=== PATIENT | female | born 1945 | race Caucasian/White ===

== ENCOUNTER → 2016-10-21 | Outpatient (CLI) | payer MEDICARE ==
[2016-08-26 20:41] VITALS: BP 99/61
[~2016-10-21] MED LIST: SULF1TAB24 PO
--- NOTE | 2016-10-21 10:41 | RAD ---
Lumbar spine, 3 views, 10/21/2016: History: Bilateral leg weakness The bony structures are demineralized. There is mild loss of height of the L1, L3 and L4 vertebral bodies of indeterminate age. There are mild scattered marginal spurs. The disc spaces are well preserved. There are moderate degenerative changes involving the facet joints in the lower lumbar spine. Aortoiliac calcific plaquing is present. IMPRESSION: 1. Demineralization. 2. Mild to moderate scattered degenerative changes. 3. Multiple mild lumbar vertebral compression fractures of indeterminate ages.
== END | disposition home or self-care (01) ==
LOC: DXRADRC 10:10
PROVIDERS: ATTEND Family Medicine
DX: M48.56XA Collapsed vertebra, not elsewhere classified, lumbar region, initial encounter for fracture (principal); M81.0 Age-related osteoporosis without current pathological fracture; R53.1 Weakness
CPT/HCPCS: 72100

== ENCOUNTER 2016-12-20 22:16 | Emergency (ER) | payer MEDICARE ==
[~2016-12-20] VITALS: Ht 157.5 cm; Wt 50.3 kg
--- NOTE | 2016-12-20 22:43 | PHYS DOC ---
Past History Past Medical History: COPD Additional Past Medical Histor: peripheral neuropathy Past Surgical History: Hysterectomy Smoking: Non-smoker Alcohol Use: None Drug Use: None Adult General Chief Complaint Chief Complaint: LOWER EXTREMITY SWELLING [facility] HPI This is a pleasant 71-year-old female who lives at home with her dog and works at [employer] local [employer] who presents with localized swelling to the right greater than left leg last week. Patient points over last several months she's been suffering from peripheral neuropathy she been placed on prednisone and gabapentin daily for her symptoms although they have not improved. Patient is noted lower extremity swelling on the right greater than left leg without trouble or pain with walking. She describes a progressive weakness in her lower extremities as the swelling has gotten worse. Although she claims not to be a smoker there is history documented that she is. Patient denies any changes in medications other than described above she denies any shortness of breath, chest pain, abdominal pain or other symptoms. Patient said that she is on the medications and gabapentin and prednisone secondary to increased numbness and tingling to her lower extremity's bilaterally. Denies any trauma, travel outside the country or recent illness. She also denies any fever, joint pain or swelling or rash. My differential diagnosis for peripheral edema included but not limited to the following. Renal sodium retention, nephrotic syndrome, idiopathic edema secondary to volume to patient, drug-induced edema concerning vasodilators, NSAIDs, venous insufficiency or thromboembolism, pitting edema from lymphatic obstruction or hypothyroidism, ascites associated with abdominal distention, central venous pressure increases secondary to cirrhosis, congestive heart failure, or pericardial heart disease. Review of Systems Review of Systems Constitutional: Denies fever or chills [] Eyes: Denies change in visual acuity, redness, or eye pain [] HENT: Denies nasal congestion or sore throat [] Respiratory: Denies cough or shortness of breath [] Cardiovascular: No additional information not addressed in HPI [] GI: Denies abdominal pain, nausea, vomiting, bloody stools or diarrhea [] : Denies dysuria or hematuria [] Musculoskeletal: Denies back pain or joint pain [] Integument: Denies rash or skin lesions [] Neurologic: Denies headache, she complains of global weakness Endocrine: Denies polyuria or polydipsia [] Current Medications Current Medications Current Medications Medications (Trade) Dose Ordered Sig/Harper Start Time Stop Time Status Last Admin Dose Admin Sodium Chloride (Normal Saline Flush) 10 ml QSHIFT PRN 12/20/16 22:45 UNV Allergies Allergies Allergies Uncoded Allergies Type Severity Reaction Last Updated Verified PENCILLIN Adverse Reaction Intermediate 08/26/16 Physical Exam Physical Exam Constitutional: This is a frail cachectic looking woman no acute distress quietly resting. She is nontoxic in appearance HENT: Normocephalic, atraumatic, bilateral external ears normal, dry mucous membranes Eyes: PERRLA, EOMI, conjunctiva normal, no discharge. [] Neck: Normal range of motion, no tenderness, supple, no stridor. [] Cardiovascular:Heart rate regular rhythm, no murmur [] Lungs & Thorax: Bilateral breath sounds clear to auscultation [] Abdomen: Bowel sounds normal, soft, no tenderness, no masses, no pulsatile masses. [] Skin: Warm dry and intact +2 peripheral pulses +2 capillary refill there is +3 pitting edema to the lower portion of the thigh. Extremities: No tenderness, no cyanosis, no clubbing, Neurologic: Alert and oriented X 3, normal motor function, decreased sensation to light touch over the lower extremity bilaterally. Psychologic: Affect normal, judgement normal, mood normal. [] Current Patient Data Vital Signs Vital Signs Date Time Temp Pulse Resp B/P (MAP) Pulse Ox O2 Delivery O2 Flow Rate FiO2 12/20/16 22:16 97.9 81 20 95 Room Air Vital Signs Date Time Temp Pulse Resp B/P (MAP) Pulse Ox O2 Delivery O2 Flow Rate FiO2 12/20/16 22:16 97.9 81 20 95 Room Air Lab Results Laboratory Tests Test 12/20/16 22:45 12/20/16 22:47 White Blood Count 8.1 x10^3/uL (4.0-11.0) Red Blood Count 4.57 x10^6/uL (3.50-5.40) Hemoglobin 12.7 g/dL (12.0-15.5) Hematocrit 38.4 % (36.0-47.0) Mean Corpuscular Volume 84 fL (79-100) Mean Corpuscular Hemoglobin 28 pg (25-35) Mean Corpuscular Hemoglobin Concent 33 g/dL (31-37) Red Cell Distribution Width 14.9 % (11.5-14.5) H Platelet Count 286 x10^3/uL (140-400) Neutrophils (%) (Auto) 87 % (31-73) H Lymphocytes (%) (Auto) 8 % (24-48) L Monocytes (%) (Auto) 4 % (0-9) Eosinophils (%) (Auto) 0 % (0-3) Basophils (%) (Auto) 1 % (0-3) Neutrophils # (Auto) 7.1 x10^3uL (1.8-7.7) Lymphocytes # (Auto) 0.6 x10^3/uL (1.0-4.8) L Monocytes # (Auto) 0.3 x10^3/uL (0.0-1.1) Eosinophils # (Auto) 0.0 x10^3/uL (0.0-0.7) Basophils # (Auto) 0.0 x10^3/uL (0.0-0.2) Sodium Level 141 mmol/L (136-145) Potassium Level 4.3 mmol/L (3.5-5.1) Chloride Level 104 mmol/L (98-107) Carbon Dioxide Level 32 mmol/L (21-32) Anion Gap 5 (6-14) L Blood Urea Nitrogen 21 mg/dL (7-20) H Creatinine 0.8 mg/dL (0.6-1.0) Estimated GFR (Cockcroft-Gault) 71.1 BUN/Creatinine Ratio 26 (6-20) H Glucose Level 198 mg/dL (70-99) H Calcium Level 8.3 mg/dL (8.5-10.1) L Total Bilirubin 0.4 mg/dL (0.2-1.0) Aspartate Amino Transferase (AST) 10 U/L (15-37) L Alanine Aminotransferase (ALT) 18 U/L (14-59) Alkaline Phosphatase 166 U/L (46-116) H Creatine Kinase 78 U/L (26-192) Creatine Kinase MB (Mass) 0.9 ng/mL (0.0-3.6) Creatine Kinase MB Relative Index 1.2 % (0-4) Troponin I Quantitative < 0.017 ng/mL (0-0.055) OU-Yds-L-Type Natriuretic Peptide 83 pg/mL (0-124) Total Protein 6.3 g/dL (6.4-8.2) L Albumin 3.3 g/dL (3.4-5.0) L Albumin/Globulin Ratio 1.1 (1.0-1.7) Urine Collection Type Unknown Urine Color Yellow Urine Clarity Hazy Urine pH 5.5 Urine Specific [place] 1.010 Urine Protein Neg (NEG-TRACE) Urine Glucose (UA) Neg mg/dL (NEG) Urine Ketones (Stick) Neg mg/dL (NEG) Urine Blood Trace (NEG) Urine Nitrite Pos (NEG) Urine Bilirubin Neg (NEG) Urine Urobilinogen Dipstick 1 mg/dL (0.2 mg/dL) Urine Leukocyte Esterase Mod (NEG) Urine RBC 0 /HPF (0-2) Urine WBC >40 /HPF (0-4) Urine Squamous Epithelial Cells Occ /LPF Urine Bacteria Many /HPF (0-FEW) EKG EKG EKG timed 10:37 PM 12/20/2016 demonstrates normal sinus rhythm with a heart rate of 70 PA interval of 138 QRS of 78 QTC of 361 there is a nonseptic T-wave flattening in V1 and otherwise normal looking EKG. Read by Dr. Tate left atrial enlargement via large P wave in lead 2 [] Radiology/Procedures Radiology/Procedures [] AP chest film timed 12/20/2016 at approximately 2258 demonstrates hyperinflated lungs flattened diaphragms without signs of infection pleural effusion or cardiomegaly. Read by Dr. Tate. Ultrasound report received by [email or web address] and reviewed by me demonstrates no DVT lower extremity ultrasound. Course & Med Decision Making Course & Med Decision Making Pertinent Labs and Imaging studies reviewed. (See chart for details) Patient tells me that their symptoms given during CC are unchanged I reviewed labs and radiology reports with patient and she will follow-up with her primary care doctor next 24-40 hours. At this point there is no evidence of congestive heart failure, cardiac ischemia, kidney failure, pulmonary edema, vascular congestion in the lower extremities consistent with DVT. Patient will follow up with her primary care doctor in the next several days \ impression: Peripheral edema of unclear etiology, UTI Disposition: PCP follow-up 24-48 hours repeat evaluation [] Dragon Disclaimer Dragon Disclaimer This chart was dictated in whole or in part using Voice Recognition software in a busy, high-work load, and often noisy Emergency Department environment. It may contain unintended and wholly unrecognized errors or omissions. Departure Departure: Impression: Primary Impression: Peripheral edema Additional Impression: UTI (urinary tract infection) Disposition: 01 HOME, SELF-CARE Condition: IMPROVED Referrals: ALE GAUTAM MD (PCP) Patient Instructions: Peripheral Edema, Urinary Tract Infection Additional Instructions: Please follow-up with your primary care doctor for repeat evaluation in the next 24-48 hours. Please return for any new or increasing symptoms, shortness of breath, chest pain, redness or swelling in-year-old excess new. Scripts Phenazopyridine Hcl (PYRIDIUM) 200 Mg Tablet 200 MG PO TID for 5 Days, #15 TAB Prov: JUAQUIN TATE MD 12/20/16 Sulfamethoxazole/Trimethoprim (BACTRIM DS TABLET) 1 Each Tablet 1 TAB PO BID, #20 TAB Prov: JUAQUIN TATE MD 12/20/16 Problem Qualifiers JUAQUIN TATE MD Dec 20, 2016 22:43
[2016-12-20] MEDS ORDERED: 0.9 % SODIUM CHLORIDE 10 ML DISP.SYRIN. IV PRN (23:00)
[2016-12-20] MEDS ORDERED: PRED20TA PO (23:02)
[2016-12-20] MEDS ORDERED: GABA-586 PO (23:02)
[2016-12-20 23:08] LABS: BASO % 1 % (0-3); EOS % 0 % (0-3); HEMATOCRIT 38.4 % (36.0-47.0); HEMOGLOBIN 12.7 g/dL (12.0-15.5); LYMPH # 0.6 x10^3/uL (1.0-4.8); LYMPH % 8 % (24-48); MEAN CORPUSCULAR HEMOGLOBIN 28 pg (25-35); MEAN CORPUSCULAR HGB CONC 33 g/dL (31-37); MEAN CORPUSCULAR VOLUME 84 fL (79-100); MONO # 0.3 x10^3/uL (0.0-1.1); MONO % 4 % (0-9); NEUT # 7.1 x10^3uL (1.8-7.7); NEUT % 87 % (31-73); PLATELET COUNT 286 x10^3/uL (140-400); RED BLOOD COUNT 4.57 x10^6/uL (3.50-5.40); RED CELL DISTRIBUTION WIDTH 14.9 % (11.5-14.5); WHITE BLOOD COUNT 8.1 x10^3/uL (4.0-11.0)
[2016-12-20 23:18] LABS: BILIRUBIN,URINE NEG (NEG); CLARITY,URINE HAZY; COLOR,URINE YELLOW; GLUCOSE,URINE NEG (NEG); NITRITE,URINE POS (NEG); RBC,URINE 0 /HPF (0-2); UROBILINOGEN,URINE 1 mg/dL (0.2 mg/dL); WBC,URINE >40 /HPF (0-4)
[2016-12-20 23:19] LABS: BACTERIA,URINE MANY /HPF (0-FEW); SQUAMOUS EPITHELIAL CELL,UR OCC /LPF
[2016-12-20 23:29] LABS: ALBUMIN 3.3 g/dL (3.4-5.0); ALBUMIN/GLOBULIN RATIO 1.1 (1.0-1.7); CALCIUM 8.3 mg/dL (8.5-10.1); CREATININE 0.8 mg/dL (0.6-1.0); GFR 71.1; POTASSIUM 4.3 mmol/L (3.5-5.1); TOTAL BILIRUBIN 0.4 mg/dL (0.2-1.0); TOTAL PROTEIN 6.3 g/dL (6.4-8.2)
[2016-12-20] MEDS ORDERED: SULF1TAB24 PO (23:55)
[2016-12-20] MEDS ORDERED: PHEN-318 PO (23:55)
--- NOTE | 2016-12-21 00:10 | RAD ---
Right lower extremity venous Doppler: Reason for examination: Right leg edema. The right lower extremity venous system was evaluated from the right common femoral and greater saphenous veins distally to the calf veins with grayscale imaging, color-flow imaging and spectral analysis. There appears be normal blood flow. No deep venous thrombosis present. There is normal response to the venous system to compression and augmentation. There is soft tissue edema present. IMPRESSION: No deep venous thrombosis in the right lower extremity. Soft tissue edema is present. Electronically signed by: Bridgette Rashid MD (12/21/2016 12:07 AM)
[2016-12-21 01:00] VITALS: BP 130/60
--- NOTE | 2016-12-21 04:02 | EKG ---
[address] [address] Test Date: 2016-12-20 Test Time: 22:37:19 Pat Name: JOÃO RODRIGUEZ Department: Room: Gender: F Flare Maker: LENORA : 1945 Requested By: JUAQUIN TATE Order Number: [id number] Reading MD: Daron Noonan Measurements Intervals [place] Rate: 70 P: 61 [place]: 138 QRS: -24 QRSD: 78 T: 48 QT: 332 QTc: 361 Interpretive Statements SINUS RHYTHM LEFT ATRIAL ABNORMALITY LEFTWARD AXIS NON SPECIFIC T ABNORMALITY RI6.01 Unconfirmed report No previous ECG available for comparison Electronically Signed On 12-21-2016 9:58:11 CDT by Daron Noonan
--- NOTE | 2016-12-21 08:45 | RAD ---
Portable chest, 12/20/2016: History: Peripheral edema Comparison is made to a study from 08/26/2016. The heart size and pulmonary vascularity are within normal limits. There is calcific plaquing and mild tortuosity of the thoracic aorta. There is minimal parenchymal scarring. No acute infiltrate is seen. There is no evidence of pleural fluid. The bony structures are demineralized. There is a healing fracture of the proximal right humerus. IMPRESSION: No acute cardiopulmonary abnormality is detected.
== END 2016-12-21 01:23 | disposition home or self-care (01) ==
LOC: ER 22:16
DX: R60.0 Localized edema (principal); N39.0 Urinary tract infection, site not specified; J44.9 Chronic obstructive pulmonary disease, unspecified; G62.9 Polyneuropathy, unspecified; Z88.0 Allergy status to penicillin
CPT/HCPCS: 36415; 71010; 80053; 81001; 82553; 83880; 84443; 84484; 85027; 87086; 87186; 93005; 93971; 99285-25

== ENCOUNTER 2017-07-10 19:33 | Emergency (ER) | payer MEDICARE ==
[~2017-07-10] VITALS: Ht 157.5 cm; Wt 44.2 kg
[~2017-07-10 19:33] MED LIST changes: +GABA-586 PO; +PHEN-318 PO; +PRED20TA PO
[2017-07-10] MEDS ORDERED: MVI, ADULT NO.4 WITH VIT K 10 ML, FOLIC ACID SYRINGE for ER 1 MG, THIAMINE 100 MG in IV... IV SCH ×4 (20:00)
[2017-07-10] MEDS ORDERED: MVI, ADULT NO.4 WITH VIT K 10 ML VIAL IV ONE (20:25)
[2017-07-10] MEDS ORDERED: FOLIC ACID 5 MG/ML SYRINGE for ER IV ONE (20:25)
[2017-07-10] MEDS ORDERED: THIAMINE 200 MG/2 ML VIAL. IV ONE (20:25)
[2017-07-10 20:31] LABS: BASO # 0.1 x10^3/uL (0.0-0.2); BASO % 0 % (0-3); EOS % 0 % (0-3); HEMATOCRIT 30.8 % (36.0-47.0); HEMOGLOBIN 9.8 g/dL (12.0-15.5); LYMPH # 0.7 x10^3/uL (1.0-4.8); LYMPH % 2 % (24-48); MEAN CORPUSCULAR HEMOGLOBIN 24 pg (25-35); MEAN CORPUSCULAR HGB CONC 32 g/dL (31-37); MEAN CORPUSCULAR VOLUME 75 fL (79-100); MONO # 1.2 x10^3/uL (0.0-1.1); MONO % 4 % (0-9); NEUT # 25.9 x10^3uL (1.8-7.7); NEUT % 93 % (31-73); PLATELET COUNT 640 x10^3/uL (140-400); RED BLOOD COUNT 4.13 x10^6/uL (3.50-5.40); WHITE BLOOD COUNT 27.9 x10^3/uL (4.0-11.0)
[2017-07-10 20:42] LABS: ALBUMIN 2.4 g/dL (3.4-5.0); ALBUMIN/GLOBULIN RATIO 0.5 (1.0-1.7); CREATININE 0.8 mg/dL (0.6-1.0); GFR 71.1; TOTAL BILIRUBIN 0.5 mg/dL (0.2-1.0); TOTAL PROTEIN 6.9 g/dL (6.4-8.2)
[2017-07-10 20:43] LABS: POTASSIUM 1.9 mmol/L (3.5-5.1)
[2017-07-10 21:05] LABS: % BANDS 12 % (0-9); % LYMPHS 7 % (24-48); % MONOS 3 % (0-10); % SEGS 78 % (35-66)
[2017-07-10 21:06] LABS: HYPOCHROMIA SLIGHT; MICROCYTOSIS SLIGHT; PLATELET CLUMP PRESENT; PLT ESTIMATE INCREASED (ADEQUATE); POLYCHROMASIA SLIGHT
[2017-07-10 21:14] LABS: BACTERIA,URINE MANY /HPF (0-FEW); BILIRUBIN,URINE NEG (NEG); CLARITY,URINE CLOUDY; COLOR,URINE YELLOW; GLUCOSE,URINE NEG (NEG); NITRITE,URINE NEG (NEG); SQUAMOUS EPITHELIAL CELL,UR FEW /LPF; UROBILINOGEN,URINE 0.2 mg/dL (0.2 mg/dL); WBC,URINE >40 /HPF (0-4)
[2017-07-10] MEDS ORDERED: methylPREDNISolone SOD SUCC PF 125 MG/2 ML VIAL. IV ONE (21:15)
[2017-07-10] MEDS ORDERED: HEPARIN 25,000UTS/500ML PREMIX 500 ML IV PRN (21:15)
[2017-07-10] MEDS ORDERED: IPRATRPIUM/ALBUTEROL 0.5/2.5MG 3 ML NEBU. NEB ONE (21:15)
[2017-07-10] MEDS ORDERED: POTASSIUM CHLORIDE 20 MEQ/15 ML ORAL LIQUID. PO ONE (21:15)
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
[2017-07-10 21:20] LABS: AMPHETAMINE/METHAMPHETAMINE NEG (NEG); BARBITURATES NEG (NEG); BENZODIAZEPINES NEG (NEG); CANNABINOIDS NEG (NEG); COCAINE NEG (NEG); METHADONE NEG (NEG); OPIATES NEG (NEG); PHENCYCLIDINE NEG (NEG)
[2017-07-10] MEDS ORDERED: HEPARIN for IV BOLUS 10,000 UNIT/10 ML VIAL. IV ONE (21:30)
[2017-07-10 23:00] VITALS: BP 127/85
[2017-07-10] MEDS ORDERED: ANTI-COAG MONITOR BY PHARMACY. MC PRN (23:45)
--- NOTE | 2017-07-11 07:40 | EKG ---
[address] [address] Test Date: 2017-07-10 Test Time: 19:49:39 Pat Name: JOÃO RODRIGUEZ Department: Room: Gender: F Food And Beverage Attendant: PARAM : 1945 Requested By: LUCERO GAINES Order Number: [id number] Reading MD: Bubba Arita Measurements Intervals [place] Rate: 93 P: 59 [place]: 152 QRS: -63 QRSD: 80 T: 44 QT: 380 QTc: 475 Interpretive Statements SINUS RHYTHM ATRIAL PREMATURE COMPLEX(ES) ABNORMAL LEFT AXIS DEVIATION LOW LIMB LEAD VOLTAGE QRS(T) CONTOUR ABNORMALITY CONSIDER ANTEROSEPTAL INFARCT Electronically Signed On 07-21-2017 9:05:50 REHABILITATION SUPERVISOR by Bubba Arita
--- NOTE | 2017-07-11 08:35 | RAD ---
Portable chest, 07/10/2017: History: Hypoxia, low oxygen saturation Comparison is made to a study from 12/20/2016. The patient is rotated to the right. The heart size is normal. There is calcific plaquing and tortuosity of the thoracic aorta. There is minimal parenchymal scarring. No acute pulmonary infiltrate is seen. There is no evidence of pleural fluid. The bony structures are demineralized. IMPRESSION: No acute cardiopulmonary abnormality is detected.
== END 2017-07-10 23:02 | disposition short-term general hospital (02) ==
LOC: EEVIPCON 19:33 → ER 22:23
DX: I21.4 Non-ST elevation (NSTEMI) myocardial infarction (principal); N39.0 Urinary tract infection, site not specified; L89.153 Pressure ulcer of sacral region, stage 3; D53.9 Nutritional anemia, unspecified; E44.0 Moderate protein-calorie malnutrition; E87.6 Hypokalemia; J44.9 Chronic obstructive pulmonary disease, unspecified; Z68.1 Body mass index [BMI] 19.9 or less, adult; Z91.419 Personal history of unspecified adult abuse; Z87.891 Personal history of nicotine dependence; Z88.0 Allergy status to penicillin
CPT/HCPCS: 36415; 71010; 80053; 80307; 81001; 82550; 83735; 83880; 84484; 85007; 85025; 85379; 87086; 87186; 93005; 94640; 96365; 96367; 96368; 96375; 99285; G0480; J1644; J1956; J2930; J7620; P9612; G0479; J7030

== ENCOUNTER 2018-12-21 15:46 | Emergency (ER) | payer MEDICARE ==
[2018-12-21] MEDS ORDERED: IV NORMAL SALINE 1,000ML 1,000 ML IV SCH (15:50)
--- NOTE | 2018-12-21 15:56 | PHYS DOC ---
Past History Past Medical History: COPD, Other Additional Past Medical Histor: peripheral neuropathy Past Surgical History: Hysterectomy Smoking: Non-smoker Alcohol Use: None Drug Use: None Adult General Chief Complaint Chief Complaint: WEAKNESS/GENERALIZED HPI HPI Patient is a 73-year-old female presents with generalized weakness that has been present for the past week. She has had nausea, vomiting, and diarrhea during this time. Denies any cough or shortness of breath. Denies any recent weight changes prior to this week. Nothing seems to make this better, eating or drinking seems to make it worse. No black tarry stools, no coffee ground emesis, no blood in the stool or emesis. Symptoms are moderate in intensity. Weakness is worse with any kind of exertion. She denies any chest pains or palpitations.[] Review of Systems Review of Systems Constitutional: Denies fever or chills [] Eyes: Denies change in visual acuity, redness, or eye pain [] HENT: Denies nasal congestion or sore throat [] Respiratory: Denies cough or shortness of breath [] Cardiovascular: No additional information not addressed in HPI [] GI: See history of present illness[] : Denies dysuria or hematuria [] Musculoskeletal: Denies back pain or joint pain [] Integument: Denies rash or skin lesions [] Neurologic: Denies headache, focal weakness or sensory changes [] Endocrine: Denies polyuria or polydipsia [] All other systems were reviewed and found to be within normal limits, except as documented in this note. Current Medications Current Medications Current Medications Medications (Trade) Dose Ordered Sig/Harper Start Time Stop Time Status Last Admin Dose Admin Albuterol/ Ipratropium (Duoneb) 3 ml 1X ONCE 12/21/18 16:00 12/21/18 16:01 UNV Sodium Chloride 1,000 ml @ 1,000 mls/hr Q1H 12/21/18 15:50 12/21/18 16:49 UNV Allergies Allergies Allergies Coded Allergies Type Severity Reaction Last Updated Verified Penicillins Allergy Intermediate 07/10/17 Yes Physical Exam Physical Exam Constitutional: Well developed, cachectic, no acute distress, non-toxic appearance. [] HENT: Normocephalic, atraumatic, bilateral external ears normal, oropharynx moist, no oral exudates, nose normal. [] Eyes: PERRLA, EOMI, conjunctiva normal, no discharge. [] Neck: Normal range of motion, no tenderness, supple, no stridor. [] Cardiovascular:Heart rate tachycardic with a regular rhythm, no murmur [] Lungs & Thorax: Breath sounds decreased in bilateral lower lobes[] Abdomen: Bowel sounds normal, soft, no tenderness, no masses, no pulsatile masses. [] Skin: Warm, dry, no erythema, no rash. [] Back: No tenderness, no CVA tenderness. [] Extremities: No tenderness, no cyanosis, no clubbing, ROM intact, no edema. [] Neurologic: Alert and oriented X 3, normal motor function, normal sensory function, no focal deficits noted. [] Psychologic: Affect normal, judgement normal, mood normal. [] EKG EKG EKG shows a sinus tachycardia at 108 bpm, axis is -59, abnormal left axis, normal QTC at 392 ms, no ST elevations. No acute changes when compared with EKG of 07/10/2017 other than heart rate. Interpreted by me at 1618.[] Radiology/Procedures Radiology/Procedures PORTABLE CHEST 1V History: Weakness. Hypoxia.. Comparison with 07/10/2017. Heart size is stable and not enlarged. Mild aortic calcification. Infiltrate has developed in both lung bases, right greater the left with airspace and interstitial component. Milder infiltrate in both lungs. No large effusion. No evidence of pneumothorax. Air trapping compatible with emphysema. IMPRESSION: Development of mixed infiltrates in both lungs, concerning for pneumonia. Recommend follow-up to resolution. [] Course & Med Decision Making Course & Med Decision Making Pertinent Labs and Imaging studies reviewed. (See chart for details) ED course: Patient arrived, was placed in bed, and tolerated exam well. She was noted to be hypoxic and so was started on supplemental oxygen along with being given a breathing treatment which didn't improve her oxygen saturation. She was given IV fluids for the tachycardia, and antibiotics for the presumed pneumonia. There was concern for the possibility of a PE so a CT angiogram was ordered but couldn't ultimately canceled due to her new renal impairment. Consultation was made initially with the hospitalist at [facility] who felt that the patient would benefit from a higher level of care given that we have no renal specialist, hiv prevention specialist, nor hematology staff here. Consultation then was made with the hospitalist at [facility], Dr. ENRIQUEZ, who graciously accepted the patient in transfer. Findings were discussed with the patient who voiced understanding. All questions were answered. She was transferred in improved condition Medical decision making: Patient with a leukocytosis as well as thrombocytosis, which appears to be old be given review of lab tests from the summer. Patient appears to be in acute renal failure possibly triggering the hyperkale geoff. She is noted to be hyponatremic. She is being given IV fluids to address these issues. As noted above she was given IV antibiotics for the presumed pneumonia. VQ scan for possibility of PE can be performed at the receiving facility and should not be a barrier to transfer. She is being be transferred to an ICU bed. Concern was also present for sepsis especially in light of her elevated lactate level and elevated white cell count. She is being covered for this with IV fluids as well as antibiotics for a possible source, the lungs.[] Dragon Disclaimer Dragon Disclaimer This electronic medical record was generated, in whole or in part, using a voice recognition dictation system. Departure Departure: Impression: Primary Impression: Pneumonia Additional Impressions: Acute renal failure Hyperkalemia Hyponatremia Thrombocytosis Disposition: 05 TRANSFER OTHER Condition: IMPROVED Referrals: ALE GAUTAM MD (PCP) Sepsis Assessment Date and Time of Assessment Date: Dec 21, 2018 Time: 17:00 Vital Signs Vital Signs Vital Signs Date Time Temp Pulse Resp B/P (MAP) Pulse Ox O2 Delivery O2 Flow Rate FiO2 12/21/18 17:41 103 30 115/61 (79) 98 12/21/18 16:52 96.4 Room Air 12/21/18 16:35 15.0 Respirations Respiratory Effort: Non-Labored Respiratory Pattern: Tachypnea Cardiovascular Pulse Rhythm: Regular HEART: No gallops noted, No JVD Lung Sounds Breath Sounds: Diminished (at bases) Capillary Refill Capillary Refill: Lt Foot < 3 seconds Peripheral Pulse Pulse Location: Radial Pulse Strength: Weak (1+) Pulse Assessment Method: Monitor Integumentary Skin: Warm Skin Moisture: Dry Skin Turgor: Decreased Skin Color: warm Fingernail Color: WNL Problem Qualifiers Primary Impression: Pneumonia Pneumonia type: due to unspecified organism Laterality: bilateral Lung location: lower lobe of lung Qualified Codes: J18.1 - Lobar pneumonia, unspecified organism Additional Impressions: Acute renal failure Acute renal failure type: unspecified Qualified Codes: N17.9 - Acute kidney failure, unspecified PRAFUL STEIN DO Dec 21, 2018 15:56
[2018-12-21 16:15] LABS: BASO % 0 % (0-3); EOS % 0 % (0-3); HEMATOCRIT 33.2 % (36.0-47.0); HEMOGLOBIN 10.1 g/dL (12.0-15.5); LYMPH # 0.8 x10^3/uL (1.0-4.8); LYMPH % 3 % (24-48); MEAN CORPUSCULAR HEMOGLOBIN 25 pg (25-35); MEAN CORPUSCULAR HGB CONC 31 g/dL (31-37); MEAN CORPUSCULAR VOLUME 82 fL (79-100); MONO # 0.9 x10^3/uL (0.0-1.1); MONO % 3 % (0-9); NEUT # 25.1 x10^3uL (1.8-7.7); NEUT % 94 % (31-73); RED BLOOD COUNT 4.06 x10^6/uL (3.50-5.40); RED CELL DISTRIBUTION WIDTH 15.6 % (11.5-14.5)
[2018-12-21] MEDS ORDERED: IPRATRPIUM/ALBUTEROL 0.5/2.5MG 3 ML NEBU. NEB ONE (16:15)
--- NOTE | 2018-12-21 16:18 | EKG ---
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
--- NOTE | 2018-12-21 16:22 | RAD ---
PORTABLE CHEST 1V History: Weakness. Hypoxia.. Comparison with 07/10/2017. Heart size is stable and not enlarged. Mild aortic calcification. Infiltrate has developed in both lung bases, right greater the left with airspace and interstitial component. Milder infiltrate in both lungs. No large effusion. No evidence of pneumothorax. Air trapping compatible with emphysema. IMPRESSION: Development of mixed infiltrates in both lungs, concerning for pneumonia. Recommend follow-up to resolution. Electronically signed by: Nawaf Ennis MD (12/21/2018 4:19 PM) [facility]
[2018-12-21 16:31] LABS: ALBUMIN 2.2 g/dL (3.4-5.0); ALBUMIN/GLOBULIN RATIO 0.4 (1.0-1.7); CALCIUM 9.6 mg/dL (8.5-10.1); CREATININE 2.4 mg/dL (0.6-1.0); GFR 19.9; MAGNESIUM 1.9 mg/dL (1.8-2.4); POTASSIUM 5.4 mmol/L (3.5-5.1); TOTAL BILIRUBIN 0.2 mg/dL (0.2-1.0); TOTAL PROTEIN 7.5 g/dL (6.4-8.2)
[2018-12-21 16:43] LABS: PLATELET COUNT 1145 x10^3/uL (140-400)
[2018-12-21 16:50] LABS: % BANDS 7 % (0-9); % LYMPHS 8 % (24-48); % MONOS 4 % (0-10); % SEGS 81 % (35-66)
[2018-12-21 16:52] LABS: PLATELET CLUMP PRESENT; PLT ESTIMATE INCREASED (ADEQUATE); TOXIC GRANULATION PRESENT; TOXIC VACUOLATION PRESENT
[2018-12-21 16:53] LABS: ANISOCYTOSIS SLIGHT; HYPOCHROMIA SLIGHT
[2018-12-21] MEDS ORDERED: IV NORMAL SALINE 1,000ML 1,000 ML IV ONE (18:00)
[2018-12-21 18:20] VITALS: BP 103/43
[2018-12-25 13:40] LABS: WHITE BLOOD COUNT 26.8 x10^3/uL (4.0-11.0)
== END 2018-12-21 19:08 | disposition short-term general hospital (02) ==
LOC: ER 15:46
DX: N17.9 Acute kidney failure, unspecified (principal); E87.5 Hyperkalemia; E87.1 Hypo-osmolality and hyponatremia; J18.1 Lobar pneumonia, unspecified organism; D47.3 Essential (hemorrhagic) thrombocythemia; J44.9 Chronic obstructive pulmonary disease, unspecified; Z90.710 Acquired absence of both cervix and uterus; Z88.0 Allergy status to penicillin
CPT/HCPCS: 36415; 71045; 80053; 83605; 83690; 83735; 83880; 84484; 85007; 85025; 85379; 85610; 87040; 87205; 93005; 94640; 96365; 96366; 99285; J1956; J7620; J7030

== ENCOUNTER 2019-04-08 14:08 | Inpatient (IN) | payer MEDICARE ==
[~2019-04-08] VITALS: Ht 157.5 cm; Wt 42.2 kg
[2019-04-08] MEDS ORDERED: SULF1TAB23 PO (14:36)
--- NOTE | 2019-04-08 14:37 | PHYS DOC ---
Past History Past Medical History: Anxiety, Hypertension Additional Past Medical Histor: peripheral neuropathy Past Surgical History: Other Smoking: Non-smoker Alcohol Use: None Drug Use: None Adult General Chief Complaint Chief Complaint: PAIN ON URINATION HPI HPI Patient is a 73-year-old female presents to the emergency department for evaluation. She states that for the past week, she has had urinary frequency, hesitancy, and dysuria. She has not had any other acute symptoms, she has not had any malaise, fevers, dizziness, or lightheadedness. She does not feel ill otherwise. She was hospitalized a month ago at [facility] and diagnosed with pneumonia and has had a persistent cough but denies any shortness of breath. There are no alleviating or exacerbating factors to her symptoms otherwise. She does not think she has pneumonia, and declines my offer for a chest x-ray to further assess her pulmonary status. Patient's urine specimen appears grossly purulent. Review of Systems Review of Systems Constitutional: Denies fever or chills [] Eyes: Denies change in visual acuity, redness, or eye pain [] HENT: Denies nasal congestion or sore throat [] Respiratory: Denies pleuritic pain or shortness of breath [] Cardiovascular: The patient denies any shortness of breath, chest pain, palpitations, or orthopnea[] GI: Denies abdominal pain, nausea, vomiting, bloody stools or diarrhea [] : Denies flank pain or hematuria [] Musculoskeletal: Denies back pain or joint pain [] Integument: Denies rash or skin lesions [] Neurologic: Denies headache, focal weakness or sensory changes [] Endocrine: Denies polyuria or polydipsia [] All other systems were reviewed and found to be within normal limits, except as documented in this note. Allergies Allergies Allergies Coded Allergies Type Severity Reaction Last Updated Verified Penicillins Allergy Intermediate 07/10/17 Yes Physical Exam Physical Exam PHYSICAL EXAM: CONSTITUTIONAL: Well developed, well nourished HEAD: normocephalic, atraumatic EENT: PERRL, EOMI. Conjunctivae normal color, sclerae non-icteric; moist mucous membranes. NECK: Supple, non-tender; no meningismus. LUNGS: Globally diminished breath sounds, without any rales, wheezes, or rhonchi , breathing even and unlabored. HEART: Regular rate and rhythm, no murmur CHEST: No deformity; non-tender ABDOMEN: The abdomen is soft, and non-tender, no masses or bruits. EXTREM: Normal ROM; no deformity, no calf tenderness. Normal pulses palpable in all extremities. There is no pedal edema. SKIN: No rash; no diaphoresis NEURO: Alert; normal speech and cognition; CN's grossly intact; strength grossly intact without focal deficit. BACK: No CVA TTP. EKG EKG Normal sinus rhythm a rate of 105 bpm, occasional APCs, normal axis, normal intervals, there are nonspecific ST/T changes, without acute changes noted.[] Radiology/Procedures Radiology/Procedures PROCEDURE: CHEST PA & LATERAL CHEST PA LATERAL History: Cough Comparison: 12/21/2018 and 4 chest x-ray exam. Findings: The cardiomediastinal silhouette is normal. Pulmonary vasculature is normal. The lungs are clear. No pleural effusion or pneumothorax is seen. Nodular density involving the lateral left midlung measuring 0.5 cm diameter is new since the prior exam. Emphysematous involvement of the lung mary noted. There is no acute bone abnormality. Osteopenia noted. Compression deformity of mid thoracic spine and of L1 noted. IMPRESSION: Resolution of previously seen infiltrates at the lung bases. A small new nodule at the lateral left mid thoracic levels suggested in the interval. Interval follow-up chest x-ray examination in 12-16 weeks recommended to assess stability. [] Course & Med Decision Making Course & Med Decision Making Pertinent Lab studies reviewed. (See chart for details) []4:30 PM: The patient's condition remains stable. Her white count and platelet count have trended up since her hospitalization at [place] (which was in December, not February as the patient initially stated). She is agreeable to have a chest x-ray taken at this time, and given her lab abnormalities I do think it is appropriate to have her admitted to the hospital at least for further observation and treatment. Her heart rate has improved to the 80s. The hospitalist had agreed to admit the patient for further treatment. 5:35 PM: I discussed chest x-ray findings with the patient and the need for further outpatient follow-up. Dragon Disclaimer Dragon Disclaimer This electronic medical record was generated, in whole or in part, using a voice recognition dictation system. Departure Departure: Impression: Primary Impression: Urinary tract infection Additional Impression: Sepsis Disposition: ADMITTED INPATIENT Admitting Physician: Lamar Hernandez Condition: STABLE Referrals: ALE GAUTAM MD (PCP) Scripts Sulfamethoxazole/Trimethoprim (BACTRIM 400-80 MG TABLET) 1 Each Tablet 1 TAB PO BID for -, #14 TAB Prov: TRUDY GILLIS MD 04/08/19 Problem Qualifiers TRUDY GILLIS MD Apr 08, 2019 14:36
[2019-04-08] MEDS ORDERED: cefTRIAXone IM 1 GM VIAL IM ONE (14:45)
[2019-04-08] MEDS ORDERED: IV NORMAL SALINE 1,000ML 1,000 ML IV ONE ×2 (14:45→19:30)
[2019-04-08] MEDS ORDERED: IV NORMAL SALINE 50ML 50 ML ONE (14:58)
[2019-04-08] MEDS ORDERED: cefTRIAXone SODIUM 1 GM VIAL ONE (14:58)
[2019-04-08 15:19] LABS: BASO # 0.1 x10^3/uL (0.0-0.2); BASO % 1 % (0-3); EOS # 0.1 x10^3/uL (0.0-0.7); EOS % 0 % (0-3); HEMATOCRIT 38.2 % (36.0-47.0); HEMOGLOBIN 12.1 g/dL (12.0-15.5); LYMPH # 2.2 x10^3/uL (1.0-4.8); LYMPH % 16 % (24-48); MEAN CORPUSCULAR HEMOGLOBIN 25 pg (25-35); MEAN CORPUSCULAR HGB CONC 32 g/dL (31-37); MEAN CORPUSCULAR VOLUME 80 fL (79-100); MONO # 0.6 x10^3/uL (0.0-1.1); MONO % 5 % (0-9); NEUT # 10.8 x10^3uL (1.8-7.7); NEUT % 78 % (31-73); PLATELET COUNT 787 x10^3/uL (140-400); RED CELL DISTRIBUTION WIDTH 16.5 % (11.5-14.5); WHITE BLOOD COUNT 13.9 x10^3/uL (4.0-11.0)
[2019-04-08 15:29] LABS: ALBUMIN 2.5 g/dL (3.4-5.0); ALBUMIN/GLOBULIN RATIO 0.4 (1.0-1.7); CALCIUM 8.8 mg/dL (8.5-10.1); CREATININE 1.5 mg/dL (0.6-1.0); GFR 34.2; POTASSIUM 5.1 mmol/L (3.5-5.1); TOTAL BILIRUBIN 0.1 mg/dL (0.2-1.0); TOTAL PROTEIN 8.1 g/dL (6.4-8.2)
--- NOTE | 2019-04-08 16:05 | EKG ---
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
[2019-04-08 16:24] LABS: COLOR,URINE YELLOW
[2019-04-08 16:25] LABS: BACTERIA,URINE MANY /HPF (0-FEW); BILIRUBIN,URINE NEG (NEG); CLARITY,URINE TURBID; GLUCOSE,URINE NEG (NEG); NITRITE,URINE NEG (NEG); UROBILINOGEN,URINE 0.2 mg/dL (0.2 mg/dL); WBC,URINE >40 /HPF (0-4)
--- NOTE | 2019-04-08 17:09 | RAD ---
CHEST PA LATERAL History: Cough Comparison: 12/21/2018 and 4 chest x-ray exam. Findings: The cardiomediastinal silhouette is normal. Pulmonary vasculature is normal. The lungs are clear. No pleural effusion or pneumothorax is seen. Nodular density involving the lateral left midlung measuring 0.5 cm diameter is new since the prior exam. Emphysematous involvement of the lung mary noted. There is no acute bone abnormality. Osteopenia noted. Compression deformity of mid thoracic spine and of L1 noted. IMPRESSION: Resolution of previously seen infiltrates at the lung bases. A small new nodule at the lateral left mid thoracic levels suggested in the interval. Interval follow-up chest x-ray examination in 12-16 weeks recommended to assess stability. Electronically signed by: Austin Chester MD (04/08/2019 5:06 PM) [facility]
[2019-04-09 09:34] VITALS: BP 84/53
[2019-04-09] MEDS ORDERED: FLU VAX QS 2019-20 (36MOS+)/PF 0.5 ML SYRINGE. VAX IM ONE (11:45)
[2019-04-09] MEDS ORDERED: ALBUTEROL SULFATE 2.5 MG/3 ML NEBU. NEB SCH (12:00)
[2019-04-09] MEDS: IV NORMAL SALINE 1,000ML 1,000 ML IV SCH ×2 (12:00→21:52)
[2019-04-09 12:19] LABS: BASO # 0.1 x10^3/uL (0.0-0.2); BASO % 1 % (0-3); EOS # 0.1 x10^3/uL (0.0-0.7); EOS % 1 % (0-3); HEMATOCRIT 31.5 % (36.0-47.0); HEMOGLOBIN 9.8 g/dL (12.0-15.5); LYMPH % 25 % (24-48); MEAN CORPUSCULAR HEMOGLOBIN 25 pg (25-35); MEAN CORPUSCULAR HGB CONC 31 g/dL (31-37); MEAN CORPUSCULAR VOLUME 79 fL (79-100); MONO # 0.7 x10^3/uL (0.0-1.1); MONO % 6 % (0-9); NEUT # 7.9 x10^3uL (1.8-7.7); NEUT % 67 % (31-73); PLATELET COUNT 631 x10^3/uL (140-400); RED CELL DISTRIBUTION WIDTH 16.3 % (11.5-14.5); WHITE BLOOD COUNT 11.8 x10^3/uL (4.0-11.0)
[2019-04-09 12:29] LABS: ALBUMIN 2.1 g/dL (3.4-5.0); ALBUMIN/GLOBULIN RATIO 0.5 (1.0-1.7); CALCIUM 8.2 mg/dL (8.5-10.1); CREATININE 1.1 mg/dL (0.6-1.0); POTASSIUM 4.4 mmol/L (3.5-5.1); TOTAL BILIRUBIN 0.1 mg/dL (0.2-1.0); TOTAL PROTEIN 6.6 g/dL (6.4-8.2)
[2019-04-09] MEDS ORDERED: ALBUTEROL SULFATE 2.5 MG/3 ML NEBU. NEB PRN (12:45)
--- NOTE | 2019-04-09 14:00 | HP ---
ADMIT DATE: 04/09/2019 HISTORY OF PRESENT ILLNESS: The patient is a 73-year-old female patient, who was brought to the Emergency Room with a complaint of dysuria, frequency and hesitancy. She has not had any other acute symptoms. Denied any nausea or vomiting. Denied any chills, rigors, or fevers. Denied any dizziness, lightheadedness. She was hospitalized a month ago at [facility] with diagnosis of pneumonia and has had persistent cough, but denied any shortness of breath. She apparently has been having these symptoms almost 2 weeks and her son apparently convinced her to come to the Emergency Room. She has been a smoker, quit smoking years ago, but she declined any offer for a chest x-ray to evaluate her chest. When she arrived to the Emergency Room, her urine specimen appeared grossly purulent. It was submitted for culture and sensitivity. She was started on IV Rocephin, was admitted for IV antibiotic and she also was found to be dehydrated. She has also had lactic acidosis, although she was not hypotensive. PAST MEDICAL HISTORY: Significant for peripheral neuropathy, hypertension, prior myocardial infarction, COPD, protein-calorie malnutrition and recurrent urinary tract infection. PAST SURGICAL HISTORY: Significant for neck surgery, right shoulder surgery as well as total abdominal hysterectomy, bilateral salpingo-oophorectomy as well as appendectomy. ALLERGIES: She is allergic to PENICILLIN. FAMILY HISTORY: She has 2 brothers and 1 sister alive. One brother with liver cirrhosis. Father in his 80s because of liver cirrhosis. Mother in her 60s because of congestive heart failure. SOCIAL HISTORY: She is , lives with her son. She quit smoking in 2016 after a 30-wlkg-oovy history. She does not drink alcohol or use any recreational drugs. 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 REVIEW OF SYSTEMS: The patient denied any blurring of vision, cataract, glaucoma or macular degeneration. Denied any earache, tinnitus or sensorineural deafness. Denied any nosebleeds, stuffy nose or postnasal drip. Denied any sore throat, sore tongue, toothache, hoarseness of voice or difficulty swallowing. Denied any nausea, vomiting, diarrhea or constipation. Denied any hematemesis, melena or hematochezia. Denied any dysuria, frequency or hematuria. Denied any chest pain, shortness of breath, orthopnea, paroxysmal nocturnal dyspnea. Denied any cough, phlegm or hemoptysis. Denied any chills, rigors, or fever. Did complain of dysuria, frequency or hematuria, but denied any dizziness, lightheadedness, or vertigo. PHYSICAL EXAMINATION: GENERAL: On arrival to the Emergency Room, she looked somewhat pale, cachectic, but not jaundiced, cyanosed or thyromegaly. No jugular venous distention. No limb edema. VITAL SIGNS: Her heart rate on arrival was 115, blood pressure was 118/71, temperature was 98.5, respiratory rate was 22, oxygen saturation was 97% on room air. HEAD, EYES, EARS, NOSE AND THROAT: Showed normocephalic, atraumatic. NECK: Supple. HEART: Showed normal first and second heart sounds. No gallop or murmur. CHEST: Shows central trachea, equal bilateral expansion, air entry, vesicular sounds with crepitation with dull percussion note and absent breath sounds on the right side posteriorly. I could not appreciate any rhonchi. ABDOMEN: Scaphoid, soft, nontender. NEUROLOGIC: She is awake, alert, responding appropriately. All cranial nerves intact. EXTREMITIES: She moves extremities without difficulty. She ambulates with a walker. LABORATORY DATA: Her lab work on arrival showed a white cell count of 13,900, hemoglobin was 12, hematocrit was 36, MCV was 80 and platelet count of 787,000 with normal manual differential. Her chemistry showed a serum sodium of 133, potassium 5.1, chloride 99, bicarbonate 21, anion gap of 13, BUN 40, creatinine 1.5, estimated GFR was 34 mL per minute. Her glucose was 241. Lactic acid was 2.6, calcium was 8.8. Total bilirubin, AST, ALT were normal. Alkaline phosphatase was elevated at 157. Her total protein was 8.1 and albumin was 2.5. Her urine was yellow, turbid with a pH of 7.5, specific gravity of 1.020. There was large amount of protein. The urine was negative for glucose, ketones. There was large amount of blood, negative for nitrite. There was large amount of leukocyte esterase with 3-5 rbc's, more than 40 wbc's, and too many bacteria. Her chest x-ray showed the cardiomediastinal silhouette is normal. Pulmonary vasculature is normal. The lungs are clear, no pleural effusion or pneumothorax is seen. Nodular density involving the lateral left mid lung measuring 0.5 cm in diameter is new since the prior exam. Emphysematous involvement of the lung mary noted. There is no acute bony abnormality osteopenia noted, compression deformity of mid thoracic spine of L1 noted. ASSESSMENT AND PLAN: The patient was admitted to continue with IV fluid and IV ceftriaxone. She apparently is not taking any medication, although it has been reported that she was on gabapentin, phenazopyridine and prednisone. MADHU CROSS MD DR: PADMA/theodora JOB#: [id number] / [id number]
[2019-04-09 14:48] VITALS: BP 95/59
[2019-04-09 19:33] VITALS: BP 99/64
[2019-04-09 22:43] VITALS: BP 112/70
[2019-04-10 05:33] VITALS: BP 110/71
[2019-04-10 06:19] LABS: HEMATOCRIT 31.5 % (36.0-47.0); HEMOGLOBIN 9.9 g/dL (12.0-15.5); RED BLOOD COUNT 3.98 x10^6/uL (3.50-5.40); RED CELL DISTRIBUTION WIDTH 16.9 % (11.5-14.5); WHITE BLOOD COUNT 11.2 x10^3/uL (4.0-11.0)
[2019-04-10 06:25] LABS: CALCIUM 8.1 mg/dL (8.5-10.1); GFR 54.7; POTASSIUM 3.9 mmol/L (3.5-5.1)
[2019-04-10] MEDS ORDERED: FLU VAX QS 2019-20 (36MOS+)/PF 0.5 ML SYRINGE. VAX IM ONE (09:00)
[2019-04-10 11:34] VITALS: BP 106/65
[2019-04-10 15:45] VITALS: BP 111/70
[2019-04-10 20:01] VITALS: BP 96/60
[2019-04-10] MEDS: LACTOBACILLUS RHAMNOSUS GG 1 CAPSULE. PO SCH (21:00)
[2019-04-10 23:55] VITALS: BP 103/70
--- NOTE | 2019-04-11 02:38 | PN ---
DATE: 04/10/2019 SUBJECTIVE: The patient is resting, slightly propped up in bed, in no apparent respiratory distress. She continued to have frequency, but denied any further episode of dysuria or back pain, and feels generally improved. PHYSICAL EXAMINATION: GENERAL: When I examined her, she looked pale, markedly cachectic, but no jaundice, cyanosis or thyromegaly. No jugular venous distention. No limb edema. VITAL SIGNS: Her heart rate was 83, blood pressure was 106/65, temperature was 97.4, respiratory rate 20, and oxygen saturation was 94%. HEAD, EYES, EARS, NOSE AND THROAT: Showed normocephalic, atraumatic. NECK: Supple. HEART: Showed normal first and second heart sounds. No gallop or murmur. CHEST: Clear to auscultation. No crepitation or rhonchi. ABDOMEN: Scaphoid, soft, nontender. NEUROLOGIC: She was awake, alert, responding appropriately. All cranial nerves intact. She moves extremities without difficulty. Her intake was 2700, no output was recorded. LABORATORY DATA: As of this morning showed a white cell count of 11,200, hemoglobin 10, hematocrit 31, MCV 79 and platelet count of 624,000. Serum sodium was 141, potassium 3.9, chloride 108, bicarbonate 21, anion gap of 12, BUN 17, creatinine 1, estimated GFR was 55 mL per minute. Her glucose was 105, calcium was 8.1. So far, both blood and urine cultures are still pending at the time of this dictation. ASSESSMENT: 1. Urinary tract infection. 2. Hypertension. 3. Chronic obstructive pulmonary disease. 4. Peripheral neuropathy. 5. Coronary artery disease, status post myocardial infarction. 6. Protein-calorie malnutrition with marked cachexia. PLAN: To discontinue the IV fluid, continue with IV antibiotic in the form of ceftriaxone. Hopefully, I will have the culture results tomorrow and if she remains hemodynamically stable and afebrile, she can be discharged to finish treatment as an outpatient. MADHU CROSS MD DR: PADMA/theodora JOB#: [id number] / [id number]
[2019-04-11 06:11] VITALS: BP 116/74
[2019-04-11] MEDS: LACTOBACILLUS RHAMNOSUS GG 1 CAPSULE. PO SCH (08:29)
[2019-04-11 11:17] VITALS: BP 114/73
--- NOTE | 2019-04-11 14:26 | DS ---
DATE OF DISCHARGE: HOSPITAL COURSE: The patient is a 73-year-old female patient who was admitted with a complaint of dysuria, frequency and hesitancy. She has not had any other symptoms. Denied any nausea or vomiting. Denied any chills, rigors or fever. Her urinalysis was consistent with urinary tract infection. She did have lactic acidosis and was hypotensive, started on IV fluid. Her kidney function has improved with her creatinine came down from 1.5-1. Her urinalysis showed that her urine was turbid with a pH of 7.5. There was large amount of leukocyte esterase, more than 40 wbc's and too many bacteria. The patient was admitted, continued on IV fluid and IV Rocephin. She did actually very well. She has had no further episodes of dysuria or frequency. She remained hemodynamically stable. Her white cell count has improved from 13.9-11.2 and a decision was made to discharge her home to continue on oral cefdinir. PHYSICAL EXAMINATION: GENERAL: When I examined her this afternoon, she looked well and was clearly in no apparent respiratory distress. She is pale, but no jaundice, cyanosis or thyromegaly. No jugular venous distention. No limb edema. VITAL SIGNS: Her heart rate was 92, blood pressure was 114/73, temperature was 97.6, respiratory rate 20, and oxygen saturation was 93%. HEAD, EYES, EARS, NOSE AND THROAT: Showed she is normocephalic, atraumatic. NECK: Supple. HEART: Showed normal first and second heart sounds. No gallop, rub or murmur. CHEST: Clear to auscultation. No crepitation or rhonchi. ABDOMEN: Distended, soft, nontender. NEUROLOGIC: She is awake, alert, responding appropriately. All cranial nerves intact. EXTREMITIES: She moves extremities without difficulty. LABORATORY DATA: Showed a white cell count of 11,200, hemoglobin 10, hematocrit 31, MCV 79 and platelet count of 624,000. Her chemistry showed a serum sodium of 141, potassium 3.9, chloride 108, bicarbonate 21, anion gap of 12, BUN 17, creatinine 1, estimated GFR was 55 mL per minute. Her glucose 105, calcium was 8.1. DISCHARGE MEDICATIONS: The patient was discharged home to continue on cefdinir 300 mg twice a day for 5 more days, gabapentin 300 mg 3 times a day, phenazopyridine 200 mg 3 times a day and prednisone 20 mg once a day. FINAL DISCHARGE DIAGNOSES: 1. Acute kidney injury, improving. Her creatinine came down from 1.5 to 1.1 2. Urinary tract infection and no growth and urine culture yet. 3. Hypertension. 4. Chronic obstructive pulmonary disease. 5. Peripheral neuropathy. 6. Coronary artery disease, status post myocardial infarction. 7. Protein-calorie malnutrition with marked cachexia. MADHU CROSS MD DR: PADMA/theodora JOB#: [id number] / [id number]
[2019-04-11 15:26] VITALS: BP 105/69
== END 2019-04-11 17:12 | disposition home or self-care (01) | DRG 871 ==
LOC: ER 14:08 → 1 SOUTH 04-09 05:12
PROVIDERS: ADMIT Internal Medicine; ATTEND Internal Medicine
DX: A41.9 Sepsis, unspecified organism (principal); N17.0 Acute kidney failure with tubular necrosis; N39.0 Urinary tract infection, site not specified; R64 Cachexia; E46 Unspecified protein-calorie malnutrition; Z68.1 Body mass index [BMI] 19.9 or less, adult; E86.0 Dehydration; I10 Essential (primary) hypertension; I25.2 Old myocardial infarction; G62.9 Polyneuropathy, unspecified; F41.9 Anxiety disorder, unspecified; I25.10 Atherosclerotic heart disease of native coronary artery without angina pectoris; J44.9 Chronic obstructive pulmonary disease, unspecified; Z82.49 Family history of ischemic heart disease and other diseases of the circulatory system; Z87.891 Personal history of nicotine dependence; Z90.710 Acquired absence of both cervix and uterus; Z87.440 Personal history of urinary (tract) infections
CPT/HCPCS: 36415; 71046; 80048; 80053; 81001; 82947; 83605; 85025; 85027; 87040; 87086; 90471; 90686; 93005; 96361; 96365; J0696; P9612; 97116; 99285-25; J7030

== ENCOUNTER 2019-09-17 11:01 | Inpatient (IN) | payer MEDICARE ==
[~2019-09-17] VITALS: Ht 157.5 cm; Wt 42.4 kg
[~2019-09-17 11:01] MED LIST changes: +SULF1TAB23 PO
[2019-09-17] MEDS ORDERED: IV NORMAL SALINE 1,000ML 1,500 ML IV SCH (11:26)
--- NOTE | 2019-09-17 11:50 | PHYS DOC ---
Past History Past Medical History: Other Additional Past Medical Histor: NEUROPATHY Past Surgical History: Other Additional Past Surgical Histo: SPINAL TUMOR REMOVED Smoking: Non-smoker Alcohol Use: Sober Drug Use: None Adult General Chief Complaint Chief Complaint: PAIN ON URINATION HPI HPI Patient is a 73 year old female who presents with complaint of pain with urination. Patient notes worsening symptoms over the past 2-3 days. States that she has had very foul-smelling urine and has noted pain with urination. A lso notes pain along both flanks at this time. Notes that she did have a fall 2 days ago while using her walker. Noted soreness along her right ribs but states that this is better at this time. She states that she fell directly onto her bottom during this fall. Notes that she has been able to use her walker some today but notes decreased mobility over the last couple days. Denies any known fevers. Has had nausea and decreased appetite. Has history of urinary tract infection and is concerned that she has another urinary tract infection at this time. States that she is currently staying at a motel and was brought to the emergency department by her son who is not present in the room for history taking. Review of Systems Review of Systems Constitutional: Fatigue, decreased appetite[] Eyes: Denies change in visual acuity, redness, or eye pain [] HENT: Denies nasal congestion or sore throat [] Respiratory: Denies cough or shortness of breath [] Cardiovascular: Denies chest pain or edema[] GI: Nausea, denies vomiting, bloody stools or diarrhea [] : Dysuria, flank pain[] Musculoskeletal: Denies back pain or joint pain [] Integument: Denies rash or skin lesions [] Neurologic: Denies headache, focal weakness or sensory changes [] All other systems were reviewed and found to be within normal limits, except as documented in this note. Current Medications Current Medications Current Medications Medications (Trade) Dose Ordered Sig/Harper Start Time Stop Time Status Last Admin Dose Admin Sodium Chloride 1,500 ml @ 1,500 mls/hr Q1H 09/17/19 11:26 UNV Allergies Allergies Allergies Coded Allergies Type Severity Reaction Last Updated Verified Penicillins Allergy Intermediate 07/10/17 Yes Physical Exam Physical Exam Constitutional: Alert, afebrile, frail appearance. [] HENT: Normocephalic, atraumatic, bilateral external ears normal, oropharynx moist, no oral exudates, nose normal. [] Eyes: PERRLA, EOMI, conjunctiva normal, no discharge. [] Neck: Normal range of motion, no tenderness, supple, no stridor. [] Cardiovascular: Tachycardia, regular rhythm, no murmur [] Lungs & Thorax: Bilateral breath sounds clear to auscultation [] Abdomen: Bowel sounds normal, soft, no tenderness, no masses, no pulsatile masses. [] Skin: Warm, dry, no erythema, no rash. [] Back: No tenderness, mild bilateral CVA tenderness, no midline tenderness. [] Extremities: No tenderness, no cyanosis, no clubbing, ROM intact, no edema. [] Neurologic: Alert and oriented X 3, normal motor function, normal sensory function, no focal deficits noted. [] Current Patient Data Vital Signs Vital Signs Date Time Temp Pulse Resp B/P (MAP) Pulse Ox O2 Delivery O2 Flow Rate FiO2 09/17/19 11:10 97.8 107 20 119/47 (71) 96 Room Air Lab Results Laboratory Tests Test 09/17/19 11:20 09/17/19 11:49 Urine Collection Type Unknown Urine Color Yellow Urine Clarity Turbid Urine pH 8.0 Urine Specific [place] 1.025 Urine Protein >100 mg/dl Urine Glucose (UA) Neg mg/dL Urine Ketones (Stick) Neg mg/dL Urine Blood Mod Urine Nitrite Neg Urine Bilirubin Neg Urine Urobilinogen Dipstick 0.2 mg/dL Urine Leukocyte Esterase Large Urine RBC 1-2 /HPF Urine WBC >40 /HPF Urine Squamous Epithelial Cells Few /LPF Urine Bacteria Many /HPF White Blood Count 15.6 x10^3/uL Red Blood Count 4.44 x10^6/uL Hemoglobin 10.2 g/dL Hematocrit 34.0 % Mean Corpuscular Volume 77 fL Mean Corpuscular Hemoglobin 23 pg Mean Corpuscular Hemoglobin Concent 30 g/dL Red Cell Distribution Width 17.6 % Platelet Count 733 x10^3/uL Neutrophils (%) (Auto) 66 % Lymphocytes (%) (Auto) 24 % Monocytes (%) (Auto) 7 % Eosinophils (%) (Auto) 2 % Basophils (%) (Auto) 1 % Neutrophils # (Auto) 10.3 x10^3uL Lymphocytes # (Auto) 3.7 x10^3/uL Monocytes # (Auto) 1.1 x10^3/uL Eosinophils # (Auto) 0.2 x10^3/uL Basophils # (Auto) 0.2 x10^3/uL Platelet Estimate Pending Sodium Level 137 mmol/L Potassium Level 4.0 mmol/L Chloride Level 103 mmol/L Carbon Dioxide Level 20 mmol/L Anion Gap 14 Blood Urea Nitrogen 31 mg/dL Creatinine 1.4 mg/dL Estimated GFR (Cockcroft-Gault) 37.1 BUN/Creatinine Ratio 22 Glucose Level 178 mg/dL Lactic Acid Level 2.7 mmol/L Calcium Level 8.5 mg/dL Total Bilirubin 0.1 mg/dL Aspartate Amino Transf (AST/SGOT) 13 U/L Alanine Aminotransferase (ALT/SGPT) 10 U/L Alkaline Phosphatase 119 U/L Total Protein 7.6 g/dL Albumin 2.4 g/dL Albumin/Globulin Ratio 0.5 Current Medications Medications (Trade) Dose Ordered Sig/Harper Route PRN Reason Start Time Stop Time Status Last Admin Dose Admin Sodium Chloride 1,500 ml @ 1,500 mls/hr Q1H IV 09/17/19 11:26 09/17/19 11:38 DC Sodium Chloride 1,230 ml @ 1,230 mls/hr Q1H IV 09/17/19 11:35 09/17/19 11:58 Ceftriaxone Sodium 1 gm/ Sodium Chloride 50 ml @ 100 mls/hr 1X ONCE IV 09/17/19 12:45 09/17/19 13:14 09/17/19 12:43 Sodium Chloride 50 ml @ As Directed STK-MED ONCE .ROUTE 09/17/19 12:39 09/17/19 12:39 DC Ceftriaxone Sodium (Rocephin) 1 gm STK-MED ONCE .ROUTE 09/17/19 12:39 09/17/19 12:40 DC EKG EKG Not performed[] Radiology/Procedures Radiology/Procedures [address] [address] IMAGING REPORT Signed PATIENT: JOÃO RODRIGUEZ ACCOUNT: [id number] : 1945 LOCATION: ER AGE: 73 SEX: F EXAM STATUS: REG ER ORD. PHYSICIAN: SAWYER SINGH MD REASON: sepsis, right sided rib pain PROCEDURE: PORTABLE CHEST 1V PORTABLE CHEST 1V Clinical indications: Sepsis. Right-sided rib pain. COMPARISON: April 08, 2019. Findings: Chronic interstitial lung disease and hyperinflation is seen consistent with COPD. There is chronic scarring of the left lung base. Chronic cephalization of pulmonary flow. No new lung consolidation or lung mass or pleural effusion or pneumothorax is evident. The heart size and pulmonary vasculature and mediastinum and both ishan are stable. There is a fracture of the anterolateral aspect of the right ninth rib. This could be seen previously and therefore represents an old healed fracture. There is a healed fracture of the lateral aspect of the left seventh rib. Impression: COPD. No acute lung infiltrate. Old healed bilateral rib cage fractures. Electronically signed by: Suzanne Ng MD (09/17/2019 11:54 AM) [facility] DICTATED AND SIGNED BY: SUZANNE NG MD DATE: 09/17/19 1154 CC: SAWYER SINGH MD; ALE GAUTAM MD ~ [] Course & Med Decision Making Course & Med Decision Making Pertinent Labs and Imaging studies reviewed. (See chart for details) IV access was obtained and patient was started on a 30 mL per kilo bolus of IV fluids due to suspicion for sepsis given tachycardia and urinary complaints. Patient was found to have leukocytosis, acute renal insufficiency, and an elevated lactic acid level at 2.7 with confirmed infection in the urine. Patient's heart rate has improved with bolus of IV fluids. Patient started on IV Rocephin for treatment of urinary tract infection. Due to age, comorbidities, and presence of severe sepsis criteria, the patient will need admission to the hospital for further care. I spoke with Dr. Hernandez who accepted care of patient in hospital.[] Dragon Disclaimer Dragon Disclaimer This electronic medical record was generated, in whole or in part, using a voice recognition dictation system. Departure Departure: Impression: Primary Impression: Severe sepsis Additional Impressions: Urinary tract infection Acute renal insufficiency COPD (chronic obstructive pulmonary disease) Microcytic anemia Severe protein-calorie malnutrition Disposition: ADMITTED INPATIENT Admitting Physician: Lamar Hernandez Condition: STABLE Referrals: ALE GAUTAM MD (PCP) Problem Qualifiers Additional Impressions: Urinary tract infection Urinary tract infection type: site unspecified Hematuria presence: without hematuria Qualified Codes: N39.0 - Urinary tract infection, site not specified COPD (chronic obstructive pulmonary disease) COPD type: unspecified COPD Qualified Codes: J44.9 - Chronic obstructive pulmonary disease, unspecified SAWYER SINGH MD Sep 17, 2019 11:50
[2019-09-17 11:56] LABS: BILIRUBIN,URINE NEG (NEG); CLARITY,URINE TURBID; COLOR,URINE YELLOW; GLUCOSE,URINE NEG (NEG); NITRITE,URINE NEG (NEG); UROBILINOGEN,URINE 0.2 mg/dL (0.2 mg/dL)
[2019-09-17 11:57] LABS: BACTERIA,URINE MANY /HPF (0-FEW); SQUAMOUS EPITHELIAL CELL,UR FEW /LPF; WBC,URINE >40 /HPF (0-4)
--- NOTE | 2019-09-17 11:57 | RAD ---
PORTABLE CHEST 1V Clinical indications: Sepsis. Right-sided rib pain. COMPARISON: April 08, 2019. Findings: Chronic interstitial lung disease and hyperinflation is seen consistent with COPD. There is chronic scarring of the left lung base. Chronic cephalization of pulmonary flow. No new lung consolidation or lung mass or pleural effusion or pneumothorax is evident. The heart size and pulmonary vasculature and mediastinum and both ishan are stable. There is a fracture of the anterolateral aspect of the right ninth rib. This could be seen previously and therefore represents an old healed fracture. There is a healed fracture of the lateral aspect of the left seventh rib. Impression: COPD. No acute lung infiltrate. Old healed bilateral rib cage fractures. Electronically signed by: Robert Ng MD (09/17/2019 11:54 AM) [facility]
[2019-09-17] MEDS: NORMAL SALINE IV SCH ×3 (11:58→13:35)
[2019-09-17 12:08] LABS: BASO # 0.2 x10^3/uL (0.0-0.2); BASO % 1 % (0-3); EOS # 0.2 x10^3/uL (0.0-0.7); EOS % 2 % (0-3); HEMOGLOBIN 10.2 g/dL (12.0-15.5); LYMPH # 3.7 x10^3/uL (1.0-4.8); LYMPH % 24 % (24-48); MEAN CORPUSCULAR HEMOGLOBIN 23 pg (25-35); MEAN CORPUSCULAR HGB CONC 30 g/dL (31-37); MEAN CORPUSCULAR VOLUME 77 fL (79-100); MONO # 1.1 x10^3/uL (0.0-1.1); MONO % 7 % (0-9); NEUT # 10.3 x10^3uL (1.8-7.7); NEUT % 66 % (31-73); PLATELET COUNT 733 x10^3/uL (140-400); RED BLOOD COUNT 4.44 x10^6/uL (3.50-5.40); RED CELL DISTRIBUTION WIDTH 17.6 % (11.5-14.5); WHITE BLOOD COUNT 15.6 x10^3/uL (4.0-11.0)
[2019-09-17 12:17] LABS: CALCIUM 8.5 mg/dL (8.5-10.1); CREATININE 1.4 mg/dL (0.6-1.0); GFR 37.1
[2019-09-17 12:24] LABS: ALBUMIN 2.4 g/dL (3.4-5.0); ALBUMIN/GLOBULIN RATIO 0.5 (1.0-1.7); TOTAL BILIRUBIN 0.1 mg/dL (0.2-1.0); TOTAL PROTEIN 7.6 g/dL (6.4-8.2)
[2019-09-17] MEDS ORDERED: IV NORMAL SALINE 50ML 50 ML ONE (12:39)
[2019-09-17] MEDS ORDERED: cefTRIAXone SODIUM 1 GM VIAL ONE (12:39)
[2019-09-17] MEDS ORDERED: ACETAMINOPHEN 325 MG TABLET PO PRN (13:00)
[2019-09-17] MEDS ORDERED: ONDANSETRON PF 4 MG/2 ML VIAL. IV PRN (13:00)
[2019-09-17 13:07] LABS: % BANDS 3 % (0-9); % EOS 2 % (0-5); % LYMPHS 26 % (24-48); % MONOS 5 % (0-10); % SEGS 64 % (35-66)
[2019-09-17 13:08] LABS: BURR CELLS PRESENT; PLT ESTIMATE INCREASED (ADEQUATE)
[2019-09-17 13:09] LABS: HYPOCHROMIA SLIGHT
[2019-09-17 14:36] VITALS: BP 116/68
--- NOTE | 2019-09-17 16:45 | HP ---
ADMIT DATE: 09/17/2019 HISTORY OF PRESENT ILLNESS: The patient is a 73-year-old female patient who came to the Emergency Room who presented with complaints of pain with urination. She notes that her symptoms have been going on, worsening over the last 2-3 days. She states she has had very foul smelling urine. She has noted pain with urination, also notes pain along foot, flank; at this time, notes that she did have a fall 2 days ago while using her walker, noted soreness along her right ribs, but stated that this is better at this time. She stated that she fell directly onto her bottom. During this fall, noted that she has been able to use her walker some today, but notes decreased mobility over the last couple of days. Denied any fever. Denied any nausea or anorexia. She did have a history of urinary tract infection. In fact, she was here in March last year. She apparently is staying at a motel and was brought to the Emergency Department by her son who is not present in the room. She was evaluated in the Emergency Room and her lab work showed that she has marked leukocytosis with a white cell count of 15,600, has microcytic hypochromic anemia and thrombocytosis. She has also lactic acidosis and possible acute versus [id number] kidney injury. Her urinalysis showed the urine was yellow, turbid with a pH of 8, specific gravity of 1.025. There was large amount of protein and large amount of leukocyte esterase, 1-2 rbc's, and more than 40 wbc's, and many bacteria. The patient was admitted with urinary tract infection and sepsis. She received a liter and a half of normal saline and 1 g of IV ceftriaxone and was admitted for further evaluation and treatment. When I questioned her, she said she continued to complain of low back pain. Unfortunately, no x-rays were done of her lumbar spine. PAST MEDICAL HISTORY: Significant for peripheral neuropathy, hypertension, coronary artery disease, status post myocardial infarction, chronic obstructive pulmonary disease, protein-calorie malnutrition and recurrent urinary tract infection. PAST SURGICAL HISTORY: Significant for neck surgery, right shoulder surgery as well as total abdominal hysterectomy, bilateral salpingo-oophorectomy as well as appendectomy. ALLERGIES: She is allergic to PENICILLIN. FAMILY HISTORY: She has 2 brothers and 1 sister alive. One brother with liver cirrhosis. Father in his 80s because of liver cirrhosis. Mother in her 60s because of congestive heart failure. SOCIAL HISTORY: She is , lives with her son. She quit smoking in 2016 after a 15-irog-miik history. She does not drink alcohol or use any recreational drugs. 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 REVIEW OF SYSTEMS: As history of present illness. MEDICATIONS: She is currently on following medications: She is on gabapentin 300 mg 3 times a day and prednisone 20 mg once a day. PHYSICAL EXAMINATION: GENERAL: On arrival to the Emergency Room, she looked well and was clearly in no apparent respiratory distress, somewhat pale, cachectic, but not jaundiced, cyanosis or thyromegaly. No jugular venous distention. No limb edema. VITAL SIGNS: Her heart rate was 107, blood pressure was 119/47, temperature 97.8, respiratory rate 20, and oxygen saturation was 96%. HEAD, EYES, EARS, NOSE AND THROAT: Showed normocephalic, atraumatic. NECK: Supple. HEART: Showed normal first and second heart sounds. No gallop, rub or murmur. CHEST: Clear to auscultation. No crepitation or rhonchi. ABDOMEN: Scaphoid, soft, nontender. NEUROLOGIC: She is awake, alert, responding appropriately. All cranial nerves intact. EXTREMITIES: She moves extremities without difficulty. She continued to complain of severe back pain and unable to lean forward, stand or walk. LABORATORY DATA: Her lab work on arrival showed a white cell count 15,600, hemoglobin 10, hematocrit 34, MCV 77 and platelet count 733,000. Her chemistry showed a serum sodium 137, potassium 4, chloride 103, bicarbonate 20, anion gap of 14, BUN 31, creatinine 1.4, estimated GFR was 37 mL per minute. Her glucose 178, calcium was 8.5, lactic acid was 2.5. Total bilirubin, AST, ALT, alkaline phosphatase were normal. Total protein was 7.6, albumin was 2.4. Urine showed large amount of leukocyte esterase, more than 40 wbc's, and many bacteria. ASSESSMENT AND PLAN: The patient was admitted with sepsis and urinary tract infection. She has multiple other medical problems including peripheral neuropathy, hypertension with prior history of myocardial infarction, chronic obstructive pulmonary disease, protein-calorie malnutrition and recurrent urinary tract infection. We will continue with IV ceftriaxone, continue with her gabapentin. I will arrange also for her to have x-ray of her lumbar spine and decide the further management accordingly. MADHU CROSS MD DR: PADMA/theodora JOB#: [id number] / [id number]
[2019-09-17] MEDS: IV NORMAL SALINE 1,000ML 1,000 ML IV SCH ×2 (16:50→20:50)
--- NOTE | 2019-09-17 17:13 | RAD ---
LUMBAR SPINE 2-3V History: Severe back pain Comparison: October 21, 2016 Findings: 3 views of the lumbar spine are submitted. There is again superior compression deformity of L3 and L2, progression of height loss of T12 greater anteriorly. There is also mild height loss of T11 now apparent. There is bone demineralization. There is questionable mild increased generalized height loss of L4. There is atherosclerotic calcification of the abdominal aorta. There is very mild lumbar dextroscoliosis. Impression: 1. There has been progression of height loss of T12 and T11, could be more recent compression fractures although age more accurately characterize with MRI. There is also questionable mild increased height loss stable of L4. Electronically signed by: Shailesh Henriquez MD (09/17/2019 5:10 PM) [id number]
[2019-09-17 18:28] VITALS: BP 97/58
[2019-09-17 22:56] VITALS: BP 102/59
[2019-09-18 03:00] VITALS: BP 97/53
[2019-09-18] MEDS: IV NORMAL SALINE 1,000ML 1,000 ML IV SCH (04:14)
[2019-09-18 06:02] VITALS: BP_SYST 117; BP_SYST 150; BP_DIAS 60; BP_DIAS 76
[2019-09-18 06:39] LABS: ALBUMIN 1.8 g/dL (3.4-5.0); ALBUMIN/GLOBULIN RATIO 0.5 (1.0-1.7); CALCIUM 7.5 mg/dL (8.5-10.1); CREATININE 0.9 mg/dL (0.6-1.0); GFR 61.7; POTASSIUM 3.4 mmol/L (3.5-5.1); TOTAL BILIRUBIN 0.1 mg/dL (0.2-1.0); TOTAL PROTEIN 5.6 g/dL (6.4-8.2)
[2019-09-18 07:42] LABS: HEMATOCRIT 26.3 % (36.0-47.0); HEMOGLOBIN 7.9 g/dL (12.0-15.5); RED BLOOD COUNT 3.46 x10^6/uL (3.50-5.40); RED CELL DISTRIBUTION WIDTH 17.6 % (11.5-14.5); WHITE BLOOD COUNT 11.1 x10^3/uL (4.0-11.0)
[2019-09-18] MEDS ORDERED: POTASSIUM CHLORIDE 20 MEQ TABLET.ER. PO ONE (08:15)
[2019-09-18] MEDS: LACTOBACILLUS RHAMNOSUS GG 1 CAPSULE. PO SCH ×2 (10:07→20:42)
[2019-09-18 10:08] VITALS: BP 91/63
[2019-09-18] MEDS: LIDOCAINE (700MG/PATCH) PATCH. TD SCH (11:00)
[2019-09-18 16:59] VITALS: BP 108/54
[2019-09-18] MEDS: KETOROLAC 30 MG/ML VIAL. IVP PRN (18:38)
[2019-09-18 19:00] VITALS: BP 100/51
--- NOTE | 2019-09-18 19:40 | PN ---
DATE: 09/18/2019 SUBJECTIVE: The patient is resting, slightly propped up in bed, in no apparent distress. She is feeling generally much improved. In terms of her dysuria, she continued to have back pain. Her x-ray of her lumbar spine showed that there has been progression of height loss at T12 and T11 could be more recent compression fracture, although it is more accurately characterized with MRI. There is also questionable mild increased height loss, stable of L4. PHYSICAL EXAMINATION: GENERAL: When I examined her this afternoon, she looked well and was clearly in no apparent respiratory distress, pale, extremely cachectic, but no jaundice, cyanosis or thyromegaly. No jugular venous distention. No limb edema. VITAL SIGNS: Her heart rate was 97, blood pressure was 91/63, temperature was 99, respiratory rate was 20, and oxygen saturation was 95% on room air. HEAD, EYES, EARS, NOSE AND THROAT: Showed normocephalic, atraumatic. NECK: Supple. HEART: Normal first and second heart sounds. No gallop or murmur. CHEST: Showed central trachea, equal bilateral expansion, air entry, vesicular sounds with no crepitation or rhonchi. ABDOMEN: Slightly distended, soft, nontender. NEUROLOGIC: She is awake, alert, responding appropriately. All cranial nerves are intact. She moves extremities without difficulty. She does have tenderness on the lumbar area. Her intake and output are incompletely recorded. LABORATORY WORK: As of this morning showed a white cell count of 11,000, hemoglobin 7.9, hematocrit 26, MCV 76 and platelet count 566,000. Her chemistry showed a serum sodium 142, potassium 3.4, chloride 112, bicarbonate 20, anion gap of 10, BUN 19, creatinine 0.9, estimated GFR was 61 mL per minute. Her glucose was 101. Lactic acid was 1.4, calcium was 7.5. Total bilirubin, AST, ALT, alkaline phosphatase were normal. Total protein 5.6, albumin 1.8. The urine culture is still pending at the time of this dictation. ASSESSMENT: 1. Sepsis and urinary tract infection. 2. Back pain with possible new T11-T12 compression fracture as well as L4. 3. She has multiple other medical problems including: A. Peripheral neuropathy. B. Hypertension, prior history of myocardial infarction. C. Chronic obstructive pulmonary disease. D. Protein-calorie malnutrition and recurrent urinary tract infection. PLAN: To continue with IV antibiotic. I explained to the patient she probably has compression fracture of T11-T12 and L4. However, the acuity as determined by MRI, she has an infection. We will treat her with pain management and medication and once she is discharged, we can arrange for her to have an MRI to be done as an outpatient. MADHU CROSS MD DR: PADMA/theodora JOB#: [id number] / [id number]
[2019-09-18] MEDS: PATCH REMOVAL. MC SCH (20:43)
[2019-09-18 22:41] VITALS: BP 124/67
[2019-09-19 06:00] LABS: HEMATOCRIT 26.9 % (36.0-47.0); RED BLOOD COUNT 3.52 x10^6/uL (3.50-5.40); RED CELL DISTRIBUTION WIDTH 17.7 % (11.5-14.5); WHITE BLOOD COUNT 9.7 x10^3/uL (4.0-11.0)
[2019-09-19 06:06] LABS: CALCIUM 7.8 mg/dL (8.5-10.1); CREATININE 0.9 mg/dL (0.6-1.0); GFR 61.7; POTASSIUM 4.2 mmol/L (3.5-5.1)
[2019-09-19 06:22] VITALS: BP 109/64
[2019-09-19] MEDS: LACTOBACILLUS RHAMNOSUS GG 1 CAPSULE. PO SCH ×2 (07:59→20:55)
[2019-09-19] MEDS: LIDOCAINE (700MG/PATCH) PATCH. TD SCH (08:00)
[2019-09-19] MEDS: KETOROLAC 30 MG/ML VIAL. IVP PRN ×2 (08:00→17:33)
[2019-09-19 11:00] VITALS: BP 101/65
[2019-09-19] MEDS ORDERED: ENOXAPARIN 40 MG/0.4 ML SYRINGE. SQ SCH (11:00)
[2019-09-19] MEDS: ENOXAPARIN 30 MG/0.3 ML SYRINGE. SQ SCH (12:25)
[2019-09-19 15:00] VITALS: BP 101/65
--- NOTE | 2019-09-19 16:26 | PN ---
DATE: SUBJECTIVE: The patient is sitting slightly propped up in bed, in no apparent distress. She continued to complain of back pain despite Lidoderm patches and Toradol and refusing to get out of the bed to move around despite multiple attempts to convince her that it is in her best interest to move around to prevent any clots in her leg. PHYSICAL EXAMINATION: GENERAL: When I examined her, she was pale, extremely cachectic, but not jaundiced, cyanosis or thyromegaly. No jugular venous distention. No limb edema. VITAL SIGNS: Her heart rate was 70, blood pressure was 109/64, temperature 97.6, respiratory rate was 18 and oxygen saturation was 97% on room air. The rest of clinical exam is stable. Her intake over the last 24 hours was 1700, no output was recorded. LABORATORY DATA: Her lab work this morning showed a serum sodium 140, potassium 4.2, chloride 110, bicarbonate 20, anion gap of 10, BUN 16, creatinine 0.9, estimated GFR was 61 mL per minute. Her glucose was 99, calcium was 7.8. White cell count is down to 9700, hemoglobin 8.98, hematocrit 27, MCV 76 and platelet count of 594,000. ASSESSMENT: 1. Sepsis, urinary tract infection. 2. Back pain with possible new T11-T12 compression fractures as well as L4 compression fracture. 3. Microcytic hypochromic anemia. 4. Severe protein-calorie malnutrition. 5. Other medical problems include: A. Peripheral neuropathy. B. Hypertension with prior history of myocardial infarctions. C. Chronic obstructive pulmonary disease. PLAN: To start her on Lovenox. Continue with IV Rocephin. I will arrange to check her iron studies and once we have the culture and sensitivity, I will arrange for her to be transferred to [facility] for an MRI and possible vertebroplasty. MADHU CROSS MD DR: PADMA/theodora JOB#: [id number] / [id number]
[2019-09-19 19:00] VITALS: BP 109/62
[2019-09-19] MEDS: PATCH REMOVAL. MC SCH (20:55)
[2019-09-19 23:16] VITALS: BP 110/64
[2019-09-20 06:26] VITALS: BP 129/74
[2019-09-20] MEDS: LACTOBACILLUS RHAMNOSUS GG 1 CAPSULE. PO SCH ×2 (08:25→20:09)
[2019-09-20] MEDS: LIDOCAINE (700MG/PATCH) PATCH. TD SCH (08:26)
[2019-09-20] MEDS: KETOROLAC 30 MG/ML VIAL. IVP PRN ×2 (10:00→20:09)
[2019-09-20] MEDS: ENOXAPARIN 30 MG/0.3 ML SYRINGE. SQ SCH (12:05)
[2019-09-20 12:11] VITALS: BP 104/62
[2019-09-20 15:00] VITALS: BP 120/66
--- NOTE | 2019-09-20 18:32 | PN ---
DATE: 09/20/2019 SUBJECTIVE: The patient continued to complain of back pain and inability to walk. Her urine culture has finally arrived and apparently she has a mixed urogenital yonatan growing 25-50,000 colony forming units per mL and therefore, I discontinued her Rocephin. However, she continued to have severe pain, the plan is for her to be transferred to [place] tomorrow morning with the aim of arranging for her to have an MRI and consult the interventional radiologist for vertebroplasty. PHYSICAL EXAMINATION: GENERAL: When I examined her this afternoon, she looked pale. No jaundice, cyanosis or thyromegaly. No jugular venous distention. No limb edema. VITAL SIGNS: Her heart rate was 80, blood pressure was 104/62, temperature 98.1, respiratory rate was 24, and oxygen saturation was 94%. The rest of clinical exam is stable and has not really changed. LABORATORY DATA: Her white cell count is down to 9700, hemoglobin 8, hematocrit 27, MCV 76 and platelet count of 549,000. Her chemistry showed a serum sodium 140, potassium 4.2, chloride 110, bicarbonate 20, anion gap of 10, BUN 16, creatinine 0.9, estimated GFR was 62 mL per minute. Her glucose was 99, calcium was 7.8. Her serum iron, TIBC and iron saturation are all low consistent with anemia of chronic disease. PLAN: To discontinue the IV antibiotic. Continue with pain management. Continue with the DVT prophylaxis. MADHU CROSS MD DR: PADMA/theodora JOB#: [id number] / [id number]
[2019-09-20 19:15] VITALS: BP 118/67
[2019-09-20] MEDS: PATCH REMOVAL. MC SCH (20:09)
[2019-09-20 21:35] VITALS: BP 125/63
[2019-09-21 03:15] VITALS: BP 113/67
[2019-09-21 06:05] VITALS: BP 138/66
[2019-09-21] MEDS: LACTOBACILLUS RHAMNOSUS GG 1 CAPSULE. PO SCH (08:53)
[2019-09-21] MEDS: LIDOCAINE (700MG/PATCH) PATCH. TD SCH (08:54)
[2019-09-21] MEDS ORDERED: GABA-586 PO (10:15)
[2019-09-21] MEDS ORDERED: PRED20TA PO (10:15)
--- NOTE | 2019-09-21 10:44 | DS ---
DATE OF DISCHARGE: DISCHARGE AND TRANSFER SUMMARY HOSPITAL COURSE: The patient is a 73-year-old female patient who was admitted initially with a complaint of dysuria and back pain. Initially, her urinalysis showed that she has large amount of leukocyte esterase, more than 40 wbc's, and many bacteria; however, her urine culture showed growth only 25-50,000 of mixed urogenital yonatan as she continued to complain of severe back pain. We did an x-ray of her lumbar spine, which showed there has been progression of height loss of T12 and T11 could be more recent compression fracture, although it is more accurately characterized by MRI. There is also questionable mild increased height loss, stable at the level of L4 and given that her severe pain and poor mobility due to that, a decision was made to transfer her to [facility] to arrange for an MRI and to consult the interventional radiologist for kyphoplasty if she is suitable for that. PHYSICAL EXAMINATION: GENERAL: When I saw her today, she looked well and was clearly in no apparent distress, pale, cachectic, but no jaundice, cyanosis, or thyromegaly. No jugular venous distension. No limb edema. VITAL SIGNS: Her heart rate was 77, blood pressure was 138/66, temperature 98, respiratory rate 22, and oxygen saturation was 96%. HEAD, EYES, EARS, NOSE AND THROAT: Showed normocephalic, atraumatic. NECK: Supple. HEART: Showed normal first and second heart sounds. No gallop or murmur. CHEST: Clear to auscultation. No crepitation or rhonchi. ABDOMEN: Scaphoid, soft, nontender. NEUROLOGIC: She is awake, alert, responding appropriately. All cranial nerves are intact. She moves extremities without difficulty ____, although she had difficulty walking because of severe back pain. She actually requires 2-person assist to get out of the bed to chair and vice versa. LABORATORY DATA: Her lab work showed a white cell count 9700, hemoglobin 8, hematocrit 27, MCV 76 and platelet count 594,000. Her chemistry showed a serum sodium 140, potassium 4.2, chloride 110, bicarbonate 20, anion gap of 10, BUN 16, creatinine 0.9, estimated GFR was 62 mL per minute. Her glucose was 99, calcium was 7.8. Serum iron, TIBC and iron saturation are extremely low consistent with anemia of chronic disease. Serum ferritin was 79. Total protein was 5.6, albumin was 1.8. DISCHARGE MEDICATIONS: She was transferred to [facility] to continue with gabapentin at 300 mg 3 times a day, Lovenox 30 mg subcutaneously once a day, ketorolac 30 mg IV every 6 hours, Lidoderm 2 patches applied topically and lactobacillus rhamnosus 1 capsule twice a day. FINAL DISCHARGE DIAGNOSES: 1. Osteoporosis, multiple lumbar vertebral compression fracture. 2. Peripheral neuropathy. 3. Hypertension. 4. Coronary artery disease, status post myocardial infarction. 5. Chronic obstructive pulmonary disease. 6. Protein-calorie malnutrition. 7. Recurrent urinary tract infection. MADHU CROSS MD DR: PADMA/theodora JOB#: [id number] / [id number]
[2019-09-21] MEDS: ENOXAPARIN 30 MG/0.3 ML SYRINGE. SQ SCH (12:15)
== END 2019-09-21 11:45 | disposition short-term general hospital (02) | DRG 871 ==
LOC: ER 11:01 → ICU 12:37
PROVIDERS: ADMIT Internal Medicine; ATTEND Internal Medicine
DX: A41.9 Sepsis, unspecified organism (principal); E43 Unspecified severe protein-calorie malnutrition; N39.0 Urinary tract infection, site not specified; Z68.1 Body mass index [BMI] 19.9 or less, adult; M48.54XA Collapsed vertebra, not elsewhere classified, thoracic region, initial encounter for fracture; R65.20 Severe sepsis without septic shock; D50.9 Iron deficiency anemia, unspecified; G62.9 Polyneuropathy, unspecified; I10 Essential (primary) hypertension; I25.10 Atherosclerotic heart disease of native coronary artery without angina pectoris; I25.2 Old myocardial infarction; J44.9 Chronic obstructive pulmonary disease, unspecified; M81.0 Age-related osteoporosis without current pathological fracture; N28.9 Disorder of kidney and ureter, unspecified; Z82.49 Family history of ischemic heart disease and other diseases of the circulatory system; Z87.440 Personal history of urinary (tract) infections; Z87.891 Personal history of nicotine dependence; Z90.710 Acquired absence of both cervix and uterus; Z88.0 Allergy status to penicillin; D63.8 Anemia in other chronic diseases classified elsewhere
CPT/HCPCS: 36415; 71045; 72100; 80048; 80053; 81001; 82728; 83540; 83550; 83605; 85007; 85025; 85027; 87040; 87086; 96365; J0696; J1650; J1885; 97530; 99285-25; J7030

== ENCOUNTER 2019-09-25 15:16 | Inpatient (IN) | payer MEDICARE ==
[~2019-09-25] VITALS: Ht 157.5 cm; Wt 42.4 kg
[2019-09-25 15:45] VITALS: BP 108/75
[2019-09-25] MEDS ORDERED: CYAN500T17 PO/SL (16:17)
[2019-09-25] MEDS ORDERED: POTA20TA4 PO (16:17)
[2019-09-25] MEDS ORDERED: ACET325T21 PO (16:17)
[2019-09-25] MEDS ORDERED: PANT40TA5 PO (16:17)
[2019-09-25] MEDS ORDERED: TEMA15CA PO (16:17)
[2019-09-25] MEDS ORDERED: CLOT10TR PO (16:17)
[2019-09-25] MEDS ORDERED: HYDR-2155 PO (16:17)
[2019-09-25] MEDS ORDERED: DOCU100C28 PO (16:17)
[2019-09-25] MEDS ORDERED: LACT1CAP19 PO (16:17)
[2019-09-25] MEDS ORDERED: FERR325T14 PO (16:17)
[2019-09-25] MEDS ORDERED: IPRA3AMP29 NEB (16:17)
[2019-09-25] MEDS ORDERED: MAGN400T44 PO (16:17)
[2019-09-25] MEDS ORDERED: POTASSIUM CHLORIDE 20 MEQ TABLET.ER. PO SCH (16:45)
[2019-09-25] MEDS ORDERED: DOCUSATE SODIUM 100 MG CAPSULE PO PRN (16:45)
[2019-09-25] MEDS ORDERED: TEMAZEPAM 15 MG CAPSULE PO PRN (16:45)
[2019-09-25] MEDS ORDERED: HYDROcodone/APAP 5/325MG 1 TAB TABLET PO PRN (16:45)
[2019-09-25] MEDS ORDERED: CLOTRIMAZOLE 10 MG TROCHE MM SCH (18:00)
[2019-09-25] MEDS ORDERED: IPRATRPIUM/ALBUTEROL 0.5/2.5MG 3 ML NEBU. NEB SCH (20:00)
[2019-09-25] MEDS ORDERED: ALBUTEROL SULFATE 2.5 MG/3 ML NEBU. NEB PRN (22:15)
[2019-09-26 05:22] VITALS: BP 90/61
[2019-09-26] MEDS: LACTOBACILLUS RHAMNOSUS GG 1 CAPSULE. PO SCH (09:28)
[2019-09-26] MEDS: predniSONE 20 MG TABLET PO SCH ×3 (09:28→09:48)
[2019-09-26] MEDS: PANTOPRAZOLE 40 MG TABLET. PO SCH (09:28)
[2019-09-26] MEDS: CYANOCOBALAMIN (VITAMIN B-12) 1,000 MCG TABLET. PO SCH (09:28)
[2019-09-26] MEDS: FERROUS SULFATE 325 MG TABLET. PO SCH (09:29)
[2019-09-26] MEDS: MAGNESIUM OXIDE 400 MG TABLET PO SCH (09:29)
[2019-09-26] MEDS: ACETAMINOPHEN 325 MG TABLET PO PRN ×2 (11:01→22:46)
[2019-09-26 17:33] VITALS: BP 97/64
[2019-09-27 05:08] VITALS: BP 94/58
[2019-09-27] MEDS: FERROUS SULFATE 325 MG TABLET. PO SCH (08:38)
[2019-09-27] MEDS: CYANOCOBALAMIN (VITAMIN B-12) 1,000 MCG TABLET. PO SCH (08:38)
[2019-09-27] MEDS: PANTOPRAZOLE 40 MG TABLET. PO SCH (08:38)
[2019-09-27] MEDS: LACTOBACILLUS RHAMNOSUS GG 1 CAPSULE. PO SCH (08:38)
[2019-09-27] MEDS: MAGNESIUM OXIDE 400 MG TABLET PO SCH (08:38)
[2019-09-27 19:00] VITALS: BP 95/63
[2019-09-28] MEDS: PANTOPRAZOLE 40 MG TABLET. PO SCH (07:30)
[2019-09-28 08:00] VITALS: BP 104/71
[2019-09-28] MEDS: FERROUS SULFATE 325 MG TABLET. PO SCH (09:00)
[2019-09-28] MEDS: LACTOBACILLUS RHAMNOSUS GG 1 CAPSULE. PO SCH (09:00)
[2019-09-28] MEDS: MAGNESIUM OXIDE 400 MG TABLET PO SCH (09:00)
[2019-09-28] MEDS: predniSONE 20 MG TABLET PO SCH (09:00)
[2019-09-28] MEDS: CYANOCOBALAMIN (VITAMIN B-12) 1,000 MCG TABLET. PO SCH (09:00)
[2019-09-28 14:34] LABS: HEMATOCRIT 25.5 % (36.0-47.0); HEMOGLOBIN 7.9 g/dL (12.0-15.5); RED BLOOD COUNT 3.36 x10^6/uL (3.50-5.40); RED CELL DISTRIBUTION WIDTH 18.5 % (11.5-14.5); WHITE BLOOD COUNT 8.2 x10^3/uL (4.0-11.0)
[2019-09-28 14:45] LABS: ALBUMIN 2.3 g/dL (3.4-5.0); ALBUMIN/GLOBULIN RATIO 0.5 (1.0-1.7); CREATININE 1.2 mg/dL (0.6-1.0); GFR 44.3; POTASSIUM 5.3 mmol/L (3.5-5.1); TOTAL BILIRUBIN 0.1 mg/dL (0.2-1.0); TOTAL PROTEIN 6.9 g/dL (6.4-8.2)
--- NOTE | 2019-09-28 15:49 | HP ---
ADMIT DATE: HISTORY OF PRESENT ILLNESS: The patient is a 73-year-old female patient who was originally seen at [facility] with a complaint of back pain and left flank pain. She was started on IV antibiotic and her urine was sent for culture and sensitivity; however, the urine culture showed growth of only 25,000-50,000 mixed urogenital yonatan. We did an x-ray of her lumbar spine, which showed that she has progression of height loss at T12 and T11. It could be more recent compression fracture and therefore, she was transferred to [facility] where she has had an MRI of her thoracic and lumbar spine. It did show that the patient has a compression fracture of her T12. 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 She was seen in consultation by Dr. Godinez, who underwent fluoroscopically guided kyphoplasty of T12 successfully. The pain has resolved almost instantaneously and the patient was able to move and therefore, the patient was transferred to [facility] swing bed to continue the process of rehabilitation. When I saw her today, she looked well and was clearly more ambulatory. She has been up and about walking and pain has largely subsided. PAST MEDICAL HISTORY: Significant for chronic obstructive pulmonary disease, hypertension, coronary artery disease, status post myocardial infarction, severe protein-calorie malnutrition, peripheral neuropathy and recurrent urinary tract infection. PAST SURGICAL HISTORY: Significant for cervical laminectomy, right shoulder surgery as well as total abdominal hysterectomy, bilateral salpingo-oophorectomy, appendectomy and most recently T12 kyphoplasty. ALLERGIES: SHE IS ALLERGIC TO PENICILLIN. FAMILY HISTORY: She has 2 brothers and 1 sister. One brother with liver cirrhosis. Father in his 80s because of liver cirrhosis. Mother in her 60s because of congestive heart failure. SOCIAL HISTORY: She is , lives with her son. She quit smoking in 2016 after a [id number] history. She does not drink alcohol or use any recreational drugs. 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 REVIEW OF SYSTEMS: As per history of present illness. MEDICATIONS: She is currently on following medications: She is on ipratropium bromide, albuterol inhaler by nebulizer every 4 hours, ferrous sulfate 325 mg once a day, hydrocodone/APAP 5/325 one tablet every 4 hours as needed, Tylenol 650 mg every 6 hours, temazepam 7.5 mg at bedtime, potassium chloride 20 mEq once a day, magnesium oxide 400 mg once a day, Colace 100 mg twice a day, Protonix 40 mg once a day, lactobacillus rhamnosus 1 capsule p.o. daily, cyanocobalamin 500 mcg 1 tablet once a day and clotrimazole 10 mg thrushes 5 times a day. PHYSICAL EXAMINATION: GENERAL: When I examined her this afternoon, she was resting slightly propped up in bed, no apparent distress. She was pale, extremely cachectic with body mass index only 16.2 kilograms square meter, no jaundice, cyanosis or thyromegaly. No jugular venous distention. No limb edema. VITAL SIGNS: Her heart rate was 79, blood pressure was 95/63, temperature was 98.4, respiratory rate was 18, and oxygen saturation was 92%. HEAD, EYES, EARS, NOSE AND THROAT: Showed normocephalic, atraumatic. NECK: Supple. HEART: Showed normal first and second heart sounds. No gallop or murmur. CHEST: Shows central trachea, equally reduced expansion, reduced air entry, vesicular sounds. No crepitation or rhonchi. ABDOMEN: Scaphoid, soft, nontender. NEUROLOGIC: She is awake, alert, responding appropriately. All cranial nerves intact. EXTREMITIES: She moves extremities without difficulty. ASSESSMENT AND PLAN: In summary, this is a 73-year-old female patient who had severe back pain due to T12 compression fracture for which she underwent kyphoplasty successfully. She has multiple medical problems including chronic obstructive pulmonary disease, hypertension, coronary artery disease, status post myocardial infarction, protein-calorie malnutrition, peripheral neuropathy. She also has severe malnutrition, marked cachexia. She is here for rehabilitation, continue with physical and occupational therapy and also pain medication and nutritional support. PLAN: My plan is to check all her labs and continue with all her medication. CT scan also showed that she has bilateral hydronephrosis. Obviously, if her kidney function remained stable, we will continue with physical therapy and eventually will arrange for her to be seen by urologist. MADHU CROSS MD DR: PADMA/theodora JOB#: [id number] / [id number]
[2019-09-28 19:32] VITALS: BP 128/76
[2019-09-29 05:24] VITALS: BP 120/77
[2019-09-29] MEDS: FERROUS SULFATE 325 MG TABLET. PO SCH (08:23)
[2019-09-29] MEDS: ACETAMINOPHEN 325 MG TABLET PO PRN (08:23)
[2019-09-29] MEDS: PANTOPRAZOLE 40 MG TABLET. PO SCH (08:23)
[2019-09-29] MEDS: CYANOCOBALAMIN (VITAMIN B-12) 1,000 MCG TABLET. PO SCH (08:23)
[2019-09-29] MEDS: LACTOBACILLUS RHAMNOSUS GG 1 CAPSULE. PO SCH (08:23)
[2019-09-29] MEDS: MAGNESIUM OXIDE 400 MG TABLET PO SCH (08:23)
[2019-09-29] MEDS ORDERED: CETIRIZINE HCL 10 MG TABLET PO PRN (09:00)
[2019-09-29] MEDS ORDERED: predniSONE 10 MG TABLET PO SCH (09:00)
[2019-09-29 17:56] VITALS: BP 127/75
[2019-09-30 06:17] VITALS: BP 108/71
[2019-09-30] MEDS: MAGNESIUM OXIDE 400 MG TABLET PO SCH (07:21)
[2019-09-30] MEDS: LACTOBACILLUS RHAMNOSUS GG 1 CAPSULE. PO SCH (07:21)
[2019-09-30] MEDS: CYANOCOBALAMIN (VITAMIN B-12) 1,000 MCG TABLET. PO SCH (07:21)
[2019-09-30] MEDS: PANTOPRAZOLE 40 MG TABLET. PO SCH (07:21)
[2019-09-30] MEDS: FERROUS SULFATE 325 MG TABLET. PO SCH (07:22)
[2019-09-30] MEDS: CETIRIZINE HCL 10 MG TABLET PO SCH (08:34)
[2019-09-30] MEDS: ACETAMINOPHEN 325 MG TABLET PO PRN (10:18)
[2019-09-30 18:22] VITALS: BP 106/66
[2019-10-01 06:02] VITALS: BP 138/83
[2019-10-01] MEDS: LACTOBACILLUS RHAMNOSUS GG 1 CAPSULE. PO SCH (08:30)
[2019-10-01] MEDS: PANTOPRAZOLE 40 MG TABLET. PO SCH (08:30)
[2019-10-01] MEDS: MAGNESIUM OXIDE 400 MG TABLET PO SCH (08:30)
[2019-10-01] MEDS: CETIRIZINE HCL 10 MG TABLET PO SCH (08:30)
[2019-10-01] MEDS: FERROUS SULFATE 325 MG TABLET. PO SCH (08:31)
[2019-10-01] MEDS: CYANOCOBALAMIN (VITAMIN B-12) 1,000 MCG TABLET. PO SCH (08:31)
[2019-10-01 18:11] VITALS: BP 112/76
[2019-10-02 07:48] VITALS: BP 101/69
[2019-10-02] MEDS: FERROUS SULFATE 325 MG TABLET. PO SCH (08:17)
[2019-10-02] MEDS: PANTOPRAZOLE 40 MG TABLET. PO SCH (08:18)
[2019-10-02] MEDS: MAGNESIUM OXIDE 400 MG TABLET PO SCH (08:18)
[2019-10-02] MEDS: CETIRIZINE HCL 10 MG TABLET PO SCH (08:18)
[2019-10-02] MEDS: LACTOBACILLUS RHAMNOSUS GG 1 CAPSULE. PO SCH (08:18)
[2019-10-02] MEDS: CYANOCOBALAMIN (VITAMIN B-12) 1,000 MCG TABLET. PO SCH (08:18)
[2019-10-02 18:10] VITALS: BP 123/68
[2019-10-03 08:36] VITALS: BP 112/71
[2019-10-03] MEDS: FERROUS SULFATE 325 MG TABLET. PO SCH (08:42)
[2019-10-03] MEDS: CYANOCOBALAMIN (VITAMIN B-12) 1,000 MCG TABLET. PO SCH (08:42)
[2019-10-03] MEDS: LACTOBACILLUS RHAMNOSUS GG 1 CAPSULE. PO SCH (08:42)
[2019-10-03] MEDS: PANTOPRAZOLE 40 MG TABLET. PO SCH (08:42)
[2019-10-03] MEDS: MAGNESIUM OXIDE 400 MG TABLET PO SCH (08:42)
[2019-10-03] MEDS: CETIRIZINE HCL 10 MG TABLET PO SCH (08:43)
[2019-10-03 18:13] VITALS: BP 106/67
[2019-10-03] MEDS: ACETAMINOPHEN 325 MG TABLET PO PRN (20:43)
[2019-10-04 06:16] VITALS: BP 83/44
[2019-10-04 06:29] VITALS: BP 107/65
[2019-10-04] MEDS: LACTOBACILLUS RHAMNOSUS GG 1 CAPSULE. PO SCH (09:23)
[2019-10-04] MEDS: MAGNESIUM OXIDE 400 MG TABLET PO SCH (09:23)
[2019-10-04] MEDS: PANTOPRAZOLE 40 MG TABLET. PO SCH (09:23)
[2019-10-04] MEDS: CYANOCOBALAMIN (VITAMIN B-12) 1,000 MCG TABLET. PO SCH (09:23)
[2019-10-04] MEDS: CETIRIZINE HCL 10 MG TABLET PO SCH (09:23)
[2019-10-04] MEDS: FERROUS SULFATE 325 MG TABLET. PO SCH (09:23)
[2019-10-04] MEDS: ACETAMINOPHEN 325 MG TABLET PO PRN ×2 (14:03→21:37)
[2019-10-04] MEDS: POLYETHYLENE GLYCOL 3350 17 GM PACKET. PO SCH (15:51)
[2019-10-04] MEDS: DOCUSATE SODIUM 100 MG CAPSULE PO SCH ×2 (15:51→21:00)
[2019-10-04 18:01] VITALS: BP 119/72
[2019-10-05 06:36] VITALS: BP 111/70
[2019-10-05] MEDS: LACTOBACILLUS RHAMNOSUS GG 1 CAPSULE. PO SCH (07:54)
[2019-10-05] MEDS: POLYETHYLENE GLYCOL 3350 17 GM PACKET. PO SCH (07:54)
[2019-10-05] MEDS: CYANOCOBALAMIN (VITAMIN B-12) 1,000 MCG TABLET. PO SCH (07:54)
[2019-10-05] MEDS: CETIRIZINE HCL 10 MG TABLET PO SCH (07:54)
[2019-10-05] MEDS: DOCUSATE SODIUM 100 MG CAPSULE PO SCH ×2 (07:54→20:50)
[2019-10-05] MEDS: FERROUS SULFATE 325 MG TABLET. PO SCH (07:54)
[2019-10-05] MEDS: PANTOPRAZOLE 40 MG TABLET. PO SCH (07:54)
[2019-10-05] MEDS: MAGNESIUM OXIDE 400 MG TABLET PO SCH (07:55)
[2019-10-05 18:42] VITALS: BP 109/69
[2019-10-06 06:22] VITALS: BP 110/71
[2019-10-06] MEDS: FERROUS SULFATE 325 MG TABLET. PO SCH (08:01)
[2019-10-06] MEDS: LACTOBACILLUS RHAMNOSUS GG 1 CAPSULE. PO SCH (08:01)
[2019-10-06] MEDS: DOCUSATE SODIUM 100 MG CAPSULE PO SCH ×2 (08:02→20:09)
[2019-10-06] MEDS: MAGNESIUM OXIDE 400 MG TABLET PO SCH (08:02)
[2019-10-06] MEDS: CETIRIZINE HCL 10 MG TABLET PO SCH (08:02)
[2019-10-06] MEDS: PANTOPRAZOLE 40 MG TABLET. PO SCH (08:03)
[2019-10-06] MEDS: POLYETHYLENE GLYCOL 3350 17 GM PACKET. PO SCH (08:03)
[2019-10-06] MEDS: CYANOCOBALAMIN (VITAMIN B-12) 1,000 MCG TABLET. PO SCH (09:00)
--- NOTE | 2019-10-06 15:02 | RAD ---
Right lower extremity venous duplex Doppler ultrasound HISTORY: Right leg pain and swelling. FINDINGS: No DVT by grayscale sonography with compressibility, patent color Doppler blood flow, respiratory variability and augmentation of blood flow the right common femoral vein, profunda femoral vein, superficial femoral vein and popliteal vein. No DVT evident with patent color Doppler blood flow the posterior tibial peroneal veins in the calf. IMPRESSION: Negative right leg for DVT. Electronically signed by: Jaxson Carter MD (10/06/2019 2:59 PM) [id number]
[2019-10-06 18:03] VITALS: BP 110/70
[2019-10-06] MEDS: ACETAMINOPHEN 325 MG TABLET PO PRN (20:09)
[2019-10-07 06:35] LABS: HEMATOCRIT 28.7 % (36.0-47.0); HEMOGLOBIN 8.7 g/dL (12.0-15.5); RED BLOOD COUNT 3.68 x10^6/uL (3.50-5.40); RED CELL DISTRIBUTION WIDTH 19.7 % (11.5-14.5); WHITE BLOOD COUNT 10.8 x10^3/uL (4.0-11.0)
[2019-10-07 06:41] VITALS: BP 117/70
[2019-10-07 06:50] LABS: CALCIUM 8.6 mg/dL (8.5-10.1); GFR 54.7; POTASSIUM 4.2 mmol/L (3.5-5.1)
[2019-10-07] MEDS: CYANOCOBALAMIN (VITAMIN B-12) 1,000 MCG TABLET. PO SCH (08:10)
[2019-10-07] MEDS: CETIRIZINE HCL 10 MG TABLET PO SCH (08:10)
[2019-10-07] MEDS: MAGNESIUM OXIDE 400 MG TABLET PO SCH (08:10)
[2019-10-07] MEDS: DOCUSATE SODIUM 100 MG CAPSULE PO SCH ×2 (08:10→21:33)
[2019-10-07] MEDS: FERROUS SULFATE 325 MG TABLET. PO SCH (08:11)
[2019-10-07] MEDS: LACTOBACILLUS RHAMNOSUS GG 1 CAPSULE. PO SCH (08:11)
[2019-10-07] MEDS: POLYETHYLENE GLYCOL 3350 17 GM PACKET. PO SCH (08:11)
[2019-10-07] MEDS: PANTOPRAZOLE 40 MG TABLET. PO SCH (08:11)
[2019-10-07] MEDS: ACETAMINOPHEN 325 MG TABLET PO PRN ×2 (09:27→21:33)
--- NOTE | 2019-10-07 13:47 | DISCH ---
HOME HEALTH DISCHARGE/MEDS DISCHARGE INFORMATION: Discharge Date: Oct 07, 2019 Final Diagnosis: T12 Compression fracture severe osteoporosis COPD Condition on Discharge: Stable CODE STATUS: Code Status: Full HOME HEALTH: Face to Face: I certify this patient is under my care and that I, or a nurse practitioner or physician's assistant dean of students working with me, had a face to face encounter that meets the physician face to face encounter requirements with this patient on 10/07/19 Medical Condition(s): Other Physical Therapy For: Evalulation/Treatment Occupational Therapy For: Evaluation/Treatment Homebound Status Met By: Unsteady balance w/ amb, POST DISCHARGE ORDERS: Activity Instructions for Disc: Resume previous activity DIET AFTER DISCHARGE: Regular CERTIFICATION STATEMENT: Certification Statement: Based on the above finding, I certify that this patient is confined to the home and needs intermittent fci care, physical therapy and/or speech therapy, or continues to need occupational therapy.~ This patient is under my care, and I have initiated the establishment of the plan of care.~ This patient will be followed by myself or a community physician who will periodically review the plan of care. DISCHARGE MEDICATIONS: Home Meds Active Scripts Prednisone (PREDNISONE) 20 Mg Tablet, 1 TAB PO DAILY for COPD for 10 Days, #10 TAB Prov:MADHU CROSS MD 09/21/19 Reported Medications Cyanocobalamin (Vitamin B-12) (B-12) 500 Mcg Tablet, 1 TAB PO/SL DAILY for . for 30 Days, #30 TAB 0 Refills 09/25/19 Ipratropium/Albuterol Sulfate (DUONEB 0.5-3(2.5) MG/3 ML) 3 Ml Ampul.neb, 3 ML NEB Q4HRS for ., EACH 09/25/19 Ferrous Sulfate (FERROUS SULFATE) 325 Mg Tablet, 1 TAB PO DAILY for ., #30 TAB 3 Refills 09/25/19 Hydrocodone Bit/Acetaminophen (HYDROCODONE-APAP 5-325 ) 1 Each Tablet, 1 TAB PO PRN Q4HRS PRN for PAIN, TAB 0 Refills 09/25/19 Acetaminophen (ACETAMINOPHEN) 325 Mg Tablet, 2 TAB PO PRN Q6HRS PRN for pain or fever for 30 Days, #30 TAB 0 Refills 09/25/19 Temazepam (TEMAZEPAM) 15 Mg Capsule, 0.5 CAP PO PRN QHS for ., #30 CAP 1 Refill 09/25/19 Potassium Chloride (POTASSIUM CHLORIDE ) 20 Meq Tablet.er, 20 MEQ PO PRN Q6HRS for ., TAB 09/25/19 Docusate Sodium (DOCUSATE SODIUM) 100 Mg Capsule, 1 CAP PO PRN BID PRN for CONSTIPATION for 7 Days, CAP 0 Refills 09/25/19 Pantoprazole Sodium (PANTOPRAZOLE SODIUM) 40 Mg Tablet.dr, 1 TAB PO DAILY for ., #30 TAB 3 Refills 09/25/19 Lactobacillus Rhamnosus Gg (CULTURELLE) 1 Each Cap.sprink, 1 CAP PO DAILY for . for 30 Days, #30 CAP 0 Refills 09/25/19 Clotrimazole (CLOTRIMAZOLE) 10 Mg Cameron, 1 TAB PO 5XDAY for ., #35 TAB 09/25/19 Magnesium Oxide (Magnesium Oxide) 400 Mg Tablet, 1 TAB PO DAILY for . for 30 Days, #30 TAB 0 Refills 09/25/19 MADHU CROSS MD Oct 07, 2019 13:47
[2019-10-07 18:38] VITALS: BP 126/75
[2019-10-08 06:00] VITALS: BP 114/73
[2019-10-08] MEDS: MAGNESIUM OXIDE 400 MG TABLET PO SCH (08:13)
[2019-10-08] MEDS: LACTOBACILLUS RHAMNOSUS GG 1 CAPSULE. PO SCH (08:13)
[2019-10-08] MEDS: FERROUS SULFATE 325 MG TABLET. PO SCH (08:13)
[2019-10-08] MEDS: CETIRIZINE HCL 10 MG TABLET PO SCH (08:13)
[2019-10-08] MEDS: PANTOPRAZOLE 40 MG TABLET. PO SCH (08:13)
[2019-10-08] MEDS: POLYETHYLENE GLYCOL 3350 17 GM PACKET. PO SCH (08:14)
[2019-10-08] MEDS: DOCUSATE SODIUM 100 MG CAPSULE PO SCH (08:14)
[2019-10-08] MEDS: CYANOCOBALAMIN (VITAMIN B-12) 1,000 MCG TABLET. PO SCH (08:14)
[2019-10-08] MEDS: ACETAMINOPHEN 325 MG TABLET PO PRN (08:22)
[2019-10-08] MEDS ORDERED: CETI10TA16 PO (11:20)
[2019-10-08] MEDS ORDERED: POLY17PO5 PO (11:21)
== END 2019-10-08 12:00 | disposition home health service (06) | DRG 947 ==
LOC: 1 SOUTH 15:16 → LND 09-26 08:29
PROVIDERS: ADMIT Internal Medicine; ATTEND Internal Medicine
DX: R53.1 Weakness (principal); E43 Unspecified severe protein-calorie malnutrition; R64 Cachexia; Z68.1 Body mass index [BMI] 19.9 or less, adult; J44.9 Chronic obstructive pulmonary disease, unspecified; I10 Essential (primary) hypertension; I25.10 Atherosclerotic heart disease of native coronary artery without angina pectoris; Z87.440 Personal history of urinary (tract) infections; Z90.710 Acquired absence of both cervix and uterus; Z87.891 Personal history of nicotine dependence; Z82.49 Family history of ischemic heart disease and other diseases of the circulatory system; I25.2 Old myocardial infarction; G62.9 Polyneuropathy, unspecified; Z88.0 Allergy status to penicillin
CPT/HCPCS: 36415; 80048; 80053; 85027; 93971; J7512; 97110; 97112; 97116; 97530; 97535

== ENCOUNTER 2019-11-12 14:01 | Emergency (ER) | payer MEDICARE ==
[~2019-11-12] VITALS: Ht 157.5 cm; Wt 42.4 kg
[~2019-11-12 14:01] MED LIST changes: +ACET325T21 PO; +CETI10TA16 PO; +CLOT10TR PO; +CYAN500T17 PO/SL; +DOCU100C28 PO; +FERR325T14 PO; +HYDR-2155 PO; +IPRA3AMP29 NEB; +LACT1CAP19 PO; +MAGN400T44 PO; +PANT40TA5 PO; +POLY17PO5 PO; +POTA20TA4 PO; +TEMA15CA PO
[2019-11-12 14:15] VITALS: BP 113/67
[2019-11-12] MEDS ORDERED: IV NORMAL SALINE 1,000ML 1,000 ML IV ONE (14:45)
[2019-11-12 15:08] LABS: CLARITY,URINE TURBID; COLOR,URINE YELLOW
[2019-11-12 15:09] LABS: BILIRUBIN,URINE NEG (NEG); GLUCOSE,URINE NEG (NEG); NITRITE,URINE NEG (NEG); UROBILINOGEN,URINE 0.2 mg/dL (0.2 mg/dL)
[2019-11-12 15:18] LABS: BACTERIA,URINE MANY /HPF (0-FEW)
[2019-11-12 15:24] LABS: WBC,URINE TNTC /HPF (0-4)
[2019-11-12 15:45] LABS: CALCIUM 9.3 mg/dL (8.5-10.1); CREATININE 1.1 mg/dL (0.6-1.0); GFR 48.8; POTASSIUM 3.8 mmol/L (3.5-5.1)
[2019-11-12 15:52] LABS: ALBUMIN/GLOBULIN RATIO 0.6 (1.0-1.7); TOTAL BILIRUBIN 0.2 mg/dL (0.2-1.0)
[2019-11-12 16:03] LABS: BASO # 0.1 x10^3/uL (0.0-0.2); BASO % 1 % (0-3); EOS # 0.1 x10^3/uL (0.0-0.7); EOS % 1 % (0-3); HEMOGLOBIN 10.2 g/dL (12.0-15.5); LYMPH # 3.6 x10^3/uL (1.0-4.8); LYMPH % 28 % (24-48); MEAN CORPUSCULAR HEMOGLOBIN 23 pg (25-35); MEAN CORPUSCULAR HGB CONC 31 g/dL (31-37); MEAN CORPUSCULAR VOLUME 76 fL (79-100); MONO # 1.1 x10^3/uL (0.0-1.1); MONO % 8 % (0-9); NEUT % 62 % (31-73); PLATELET COUNT 594 x10^3/uL (140-400); RED BLOOD COUNT 4.36 x10^6/uL (3.50-5.40); RED CELL DISTRIBUTION WIDTH 18.1 % (11.5-14.5); WHITE BLOOD COUNT 12.8 x10^3/uL (4.0-11.0)
[2019-11-12] MEDS ORDERED: LEVO500T59 PO (16:04)
--- NOTE | 2019-11-12 16:06 | PHYS DOC ---
Past History Past Medical History: Other Additional Past Medical Histor: NEUROPATHY Past Surgical History: Appendectomy, Hysterectomy, Other Additional Past Surgical Histo: SPINAL TUMOR REMOVED, VERTEBROPLASTY Smoking: Non-smoker Alcohol Use: None Drug Use: None General Adult EDM: Chief Complaint: URINARY FREQUENCY HPI: HPI: Patient is a 74-year-old female who presented to ER today for evaluation of urinary frequency with urgency that started about 5 days ago. Patient denies any fever, no nausea vomiting, no abdominal pain. Patient denies any cough, no trouble breathing. Patient denies any abdominal pain, no chest pain. Patient denies any recent exposure to anybody who tested positive for COVID-19. Review of Systems: Review of Systems: Constitutional: Denies fever or chills Eyes: Denies change in visual acuity HENT: Denies nasal congestion or sore throat Respiratory: Denies cough or shortness of breath Cardiovascular: Denies chest pain or edema GI: Denies abdominal pain, nausea, vomiting, bloody stools or diarrhea : Positive for urinary frequency with burning sensation. Musculoskeletal: Denies back pain or joint pain Integument: Denies rash Neurologic: Denies headache, focal weakness or sensory changes Endocrine: Denies polyuria or polydipsia Lymphatic: Denies swollen glands Psychiatric: Denies depression or anxiety Heart Score: Risk Factors: Risk Factors: DM, Current or recent (<one month) smoker, HTN, HLP, family history of CAD, obesity. Risk Scores: Score 0 - 3: 2.5% MACE over next 6 weeks - Discharge Home Score 4 - 6: 20.3% MACE over next 6 weeks - Admit for Clinical Observation Score 7 - 10: 72.7% MACE over next 6 weeks - Early Invasive Strategies Current Medications: Current Meds: Current Medications Medications (Trade) Dose Ordered Sig/Harper Start Time Stop Time Status Last Admin Dose Admin Levofloxacin/ Dextrose 100 ml @ 100 mls/hr 1X ONCE 11/12/19 15:45 11/12/19 16:44 11/12/19 15:41 100 MLS/HR Sodium Chloride 1,000 ml @ 1,000 mls/hr 1X ONCE 11/12/19 14:45 11/12/19 15:44 DC 11/12/19 15:10 1,000 MLS/HR Allergies: Allergies: Allergies Coded Allergies Type Severity Reaction Last Updated Verified Penicillins Allergy Intermediate 07/10/17 Yes Physical Exam: PE: Constitutional: Well developed, well nourished, no acute distress, non-toxic appearance. [] HENT: Normocephalic, atraumatic, bilateral external ears normal, oropharynx moist, no oral exudates, nose normal. [] Eyes: PERRLA, EOMI, conjunctiva normal, no discharge. [] Neck: Normal range of motion, no tenderness, supple, no stridor. [] Cardiovascular:Heart rate regular rhythm, no murmur [] Lungs & Thorax: Bilateral breath sounds clear to auscultation [] Abdomen: Bowel sounds normal, soft, no tenderness, no masses, no pulsatile masses. [] Skin: Warm, dry, no erythema, no rash. [] Back: No tenderness, no CVA tenderness. [] Extremities: No tenderness, no cyanosis, no clubbing, ROM intact, no edema. [] Neurologic: Alert and oriented X 3, normal motor function, normal sensory function, no focal deficits noted. [] Psychologic: Affect normal, judgement normal, mood normal. [] Current Patient Data: Labs: Laboratory Tests Test 11/12/19 14:34 11/12/19 15:06 Urine Collection Type Unknown Urine Color Yellow Urine Clarity Turbid Urine pH 6.5 Urine Specific [place] 1.020 Urine Protein >100 mg/dl (NEG-TRACE) Urine Glucose (UA) Neg mg/dL (NEG) Urine Ketones (Stick) Neg mg/dL (NEG) Urine Blood Large (NEG) Urine Nitrite Neg (NEG) Urine Bilirubin Neg (NEG) Urine Urobilinogen Dipstick 0.2 mg/dL (0.2 mg/dL) Urine Leukocyte Esterase Large (NEG) Urine RBC 3-5 /HPF (0-2) Urine WBC Tntc /HPF (0-4) Urine Squamous Epithelial Cells None /LPF Urine Bacteria Many /HPF (0-FEW) Sodium Level 136 mmol/L (136-145) Potassium Level 3.8 mmol/L (3.5-5.1) Chloride Level 100 mmol/L (98-107) Carbon Dioxide Level 23 mmol/L (21-32) Anion Gap 13 (6-14) Blood Urea Nitrogen 21 mg/dL (7-20) H Creatinine 1.1 mg/dL (0.6-1.0) H Estimated GFR (Cockcroft-Gault) 48.8 BUN/Creatinine Ratio 19 (6-20) Glucose Level 94 mg/dL (70-99) Calcium Level 9.3 mg/dL (8.5-10.1) Total Bilirubin 0.2 mg/dL (0.2-1.0) Aspartate Amino Transferase (AST) 15 U/L (15-37) Alanine Aminotransferase (ALT) 14 U/L (14-59) Alkaline Phosphatase 140 U/L (46-116) H Total Protein 8.0 g/dL (6.4-8.2) Albumin 3.0 g/dL (3.4-5.0) L Albumin/Globulin Ratio 0.6 (1.0-1.7) L Vital Signs: Vital Signs Date Time Temp Pulse Resp B/P (MAP) Pulse Ox O2 Delivery O2 Flow Rate FiO2 11/12/19 14:15 98.2 95 18 113/67 (82) 96 Room Air EKG: EKG: [] Radiology/Procedures: Radiology/Procedures: [] Course & Med Decision Making: Course & Med Decision Making Pertinent Labs and Imaging studies reviewed. (See chart for details) Patient is a 74-year-old female who was found to have UTI in the ER today. Patient was given 500 mg of Levaquin IV in the ER, she will be discharged home with LEVAQUIN treatment at home. She will need to follow-up with her family doctor for reevaluation this week. [place] Disclaimer: Dragon Disclaimer: This electronic medical record was generated, in whole or in part, using a voice recognition dictation system. Departure Departure: Impression: Primary Impression: UTI (urinary tract infection) Disposition: 01 HOME, SELF-CARE Condition: STABLE Referrals: ALE GAUTAM MD (PCP) FOLLOW UP WITH YOUR DOCTOR IN 2 DAYS FOR REEVALUATION. Patient Instructions: Urinary Tract Infection Additional Instructions: Thank you for visiting our Emergency Department. We appreciate you trusting us with your care. If any additional problems come up don't hesitate to return to visit us. Please follow up with your primary care provider so they can plan additional care if needed and know about the problem that you had. If symptoms worsen come back to the Emergency Department. Any concerning symptoms that start such as chest pain, shortness of air, weakness or numbness on one side of the body, running high fevers or any other concerning symptoms return to the ER. Scripts Levofloxacin (LEVAQUIN) 500 Mg Tablet 1 TAB PO DAILY for UTI for 7 Days, #7 TAB 0 Refills Prov: MAIRA RAMIREZ DO 11/12/19 MAIRA RAMIREZ DO Nov 12, 2019 16:05
== END 2019-11-12 17:05 | disposition home or self-care (01) ==
LOC: ER 14:01
DX: N39.0 Urinary tract infection, site not specified (principal); Z90.89 Acquired absence of other organs; Z90.710 Acquired absence of both cervix and uterus; Z88.0 Allergy status to penicillin
CPT/HCPCS: 36415; 80053; 81001; 85025; 87086; 96365; 99284; J1956; J7030

== ENCOUNTER 2020-07-24 09:55 | Inpatient (IN) | payer MEDICARE ==
[2020-07-24] VITALS (9 sets, daily range): BP systolic 84–113; BP diastolic 44–82
[~2020-07-24] VITALS: Ht 157.5 cm; Wt 31.8 kg
[~2020-07-24 09:55] MED LIST changes: +LEVO500T59 PO; -PANT40TA5 PO; +PANT40TA6 PO
--- NOTE | 2020-07-24 10:11 | PHYS DOC ---
Past History Past Medical History: Other Additional Past Medical Histor: NEUROPATHY Past Surgical History: Appendectomy, Hysterectomy, Other Additional Past Surgical Histo: SPINAL TUMOR REMOVED, VERTEBROPLASTY Smoking: Non-smoker Alcohol Use: None Drug Use: None Adult General HPI HPI Patient is a 74-year-old female presenting via POV for shortness of breath. Onset was 3 weeks ago without any known inciting event, travel, sick contact or exposure. Nothing known makes better or worse. Patient denies any focal pain but reports having similar symptoms in the past when she was diagnosed with pneumonia. States she has had poor appetite, last p.o. intake was reportedly 3 days ago. She lives at home with son who provides most of her care. Patient also concerned today about potential UTI, admits to increased frequency with hesitation and dysuria. This was first noticed approximately 72 hours ago. Admits history of kidney disease but does not know what stage, has seen federal mediation commissioner in the past but is not regularly established with them, his never received hemodialysis. No recent fever, COVID-19 contact, syncope or falls, chest pain, sputum production, abdominal pain, or noticeable blood loss Review of Systems Review of Systems Fourteen body systems of review of systems have been reviewed. See HPI for pertinent positives and negative responses, other callahan all other systems are negative, non-pertinent or non-contributory Current Medications Current Medications Current Medications Medications (Trade) Dose Ordered Sig/Harper Start Time Stop Time Status Last Admin Dose Admin Aspirin (Aspirin Chewable) 162 mg 1X ONCE 07/24/20 10:15 07/24/20 10:16 DC 07/24/20 10:13 Calcium Gluconate (Calcium Gluconate) 1,000 mg 1X ONCE 07/24/20 11:45 07/24/20 11:46 DC 07/24/20 12:01 Dextrose (Dextrose 50%-Water Syringe) 25 gm 1X ONCE 07/24/20 11:45 07/24/20 11:46 DC 07/24/20 12:01 Insulin Human Regular (HumuLIN R VIAL) 5 unit 1X ONCE 07/24/20 11:45 07/24/20 11:46 DC 07/24/20 12:08 Sodium Bicarbonate (Sodium Bicarb Adult 8.4% Syr) 50 meq 1X ONCE 07/24/20 11:45 07/24/20 11:46 DC 07/24/20 12:01 Sodium Chloride 1,000 ml @ 125 mls/hr 1X ONCE 07/24/20 11:45 07/24/20 19:44 07/24/20 12:00 Allergies Allergies Allergies Coded Allergies Type Severity Reaction Last Updated Verified Penicillins Allergy Intermediate 07/10/17 Yes Physical Exam Physical Exam Constitutional: Age-appropriate, thin, malnourished and cachectic appearing HENT: Normocephalic, atraumatic, bilateral external ears normal, oropharynx moist, no oral exudates, nose normal. Eyes: PERRLA, EOMI, conjunctiva normal, no discharge. Neck: Normal range of motion, no tenderness, supple, no stridor. Cardiovascular: Heart rate regular, sinus rhythm, no murmurs rubs or gallops Lungs & Thorax: Bilateral breath sounds clear to auscultation Abdomen: Bowel sounds normal, soft, no tenderness, no masses, no pulsatile masses. Nonsurgical abdomen, no peritoneal signs. Rectal exam performed, numerous nonthrombosed external hemorrhoids present, anal sphincter intact, no abnormalities palpated within rectal vault Skin: Warm, dry, no erythema, no rash. Back: No tenderness, no CVA tenderness. Extremities: No tenderness, no cyanosis, no clubbing, ROM intact, no edema. Neurologic: Alert and oriented X 3, grossly normal motor & sensory function, no focal deficits noted. Psychologic: Affect normal, judgement normal, mood normal. Current Patient Data Vital Signs Vital Signs Date Time Temp Pulse Resp B/P (MAP) Pulse Ox O2 Delivery O2 Flow Rate FiO2 07/24/20 10:24 97.7 106 16 113/69 (84) 94 Lab Results Laboratory Tests Test 07/24/20 10:20 07/24/20 10:30 White Blood Count 30.2 x10^3/uL Red Blood Count 4.10 x10^6/uL Hemoglobin 7.4 g/dL Hematocrit 27.4 % Mean Corpuscular Volume 67 fL Mean Corpuscular Hemoglobin 18 pg Mean Corpuscular Hemoglobin Concent 27 g/dL Red Cell Distribution Width 18.5 % Platelet Count 914 x10^3/uL Neutrophils (%) (Auto) 74 % Lymphocytes (%) (Auto) 21 % Monocytes (%) (Auto) 4 % Eosinophils (%) (Auto) 0 % Basophils (%) (Auto) 1 % Neutrophils # (Auto) 22.3 x10^3uL Lymphocytes # (Auto) 6.4 x10^3/uL Monocytes # (Auto) 1.3 x10^3/uL Eosinophils # (Auto) 0.0 x10^3/uL Basophils # (Auto) 0.2 x10^3/uL Segmented Neutrophils % 63 % Lymphocytes % 32 % Monocytes % 5 % Platelet Estimate Increased Large Platelets Occ Polychromasia Slight Hypochromasia Slight Anisocytosis Slight Microcytosis Mod Target Cells Occ Tear Drop Cells Occ Ovalocytes Occ Sodium Level 122 mmol/L Potassium Level 7.1 mmol/L Chloride Level 94 mmol/L Carbon Dioxide Level 8 mmol/L Anion Gap 20 Blood Urea Nitrogen 103 mg/dL Creatinine 2.9 mg/dL Estimated GFR (Cockcroft-Gault) 16.0 Glucose Level 216 mg/dL Calcium Level 9.9 mg/dL Creatine Kinase 19 U/L Troponin I Quantitative < 0.017 ng/mL GX-Gpg-T-Type Natriuretic Peptide 2708 pg/mL Lactic Acid Level 5.2 mmol/L Current Medications Medications (Trade) Dose Ordered Sig/Harper Route PRN Reason Start Time Stop Time Status Last Admin Dose Admin Aspirin (Aspirin Chewable) 162 mg 1X ONCE PO 07/24/20 10:15 07/24/20 10:16 DC 07/24/20 10:13 Sodium Chloride 1,000 ml @ 125 mls/hr 1X ONCE IV 07/24/20 11:45 07/24/20 19:44 07/24/20 12:00 Calcium Gluconate (Calcium Gluconate) 1,000 mg 1X ONCE IV 07/24/20 11:45 07/24/20 11:46 DC 07/24/20 12:01 Sodium Bicarbonate (Sodium Bicarb Adult 8.4% Syr) 50 meq 1X ONCE IV 07/24/20 11:45 07/24/20 11:46 DC 07/24/20 12:01 Dextrose (Dextrose 50%-Water Syringe) 25 gm 1X ONCE IV 07/24/20 11:45 07/24/20 11:46 DC 07/24/20 12:01 Insulin Human Regular (HumuLIN R VIAL) 5 unit 1X ONCE IV 07/24/20 11:45 07/24/20 11:46 DC 07/24/20 12:08 EKG EKG EKG ordered and interpreted by myself at 1051 hrs. as sinus rhythm at 94 bpm, unremarkable intervals, left axis deviation, T wave inversions noted in leads aVR and aVL without prior EKG to confirm, no STEMI Radiology/Procedures Radiology/Procedures AP portable chest radiograph 07/24/2020 Clinical History: Shortness of breath. An AP erect portable digital radiograph of the chest was obtained. Comparison study is dated 09/17/2019. The cardiac silhouette is normal in size. The thoracic aorta is tortuous. Atherosclerotic calcification of the thoracic aorta is seen. Emphysematous changes are seen involving both lungs. No acute pulmonary infiltrate is noted. No pneumothorax or pleural effusion is seen. The patient is post kyphoplasty type procedure in the region of the T12 vertebral body. There is diffuse osteopenia of the visualized bony structures. Degenerative changes are seen involving the thoracic spine and both shoulders. Impression: No acute abnormality is seen. Electronically signed by: Kevin Julian MD (07/24/2020 10:47 AM) [id number] Heart Score HEART Score for Chest Pain: HEART Score for Chest Pain Response (Comments) Value History Slighlty/Non-Suspicious 0 Age > 65 2 Risk Factors 1 or 2 Risk Factors 1 Total 3 Risk Factors: Risk Factors: DM, Current or recent (<one month) smoker, HTN, HLP, family history of CAD, obesity. Risk Scores: Risk Factors: DM, Current or recent (<one month) smoker, HTN, HLP, family history of CAD, obesity. Course & Med Decision Making Course & Med Decision Making Pertinent Labs and Imaging studies reviewed. (See chart for details) Discussed case with nephrology physician at [facility], agreed with work-up so far, no indication for acute hemodialysis need and patient is safe for admission to [facility] for further inpatient medical management Dr. Molina, hospitalist at [place] contacted and case reviewed, he agreed need for admission and continued medical management in inpatient setting I updated patient on proposed plan of care that included admission to [facility], she was amenable. All questions and concerns addressed prior to ER transport to [facility] for admission Critical Care Time This patient required critical care. Due to the fact that the patient required a significant amount of one on one physician - patient contact time, ordering and review of studies, arranging urgent treatment with development of a management plan, evaluation of patients response to treatment with frequent reassessments, and discussions with other providers this patient required 75 minutes of critical care time. Critical care time was indicated due to the inherent instability and/or potential for instability in this patient. The critical care time that is allocated to this patient is above and beyond any time spent on any other billable procedures performed on this patient. Dragon Disclaimer Dragon Disclaimer This electronic medical record was generated, in whole or in part, using a voice recognition dictation system. Departure Departure: Impression: Primary Impression: Hyperkalemia Additional Impressions: Acute on chronic renal failure Electrolyte disturbance Microcytic anemia Disposition: 09 ADMITTED INPT THIS HOSP Admitting Physician: Ollie Molina Condition: STABLE Referrals: ALE GAUTAM MD (PCP) Problem Qualifiers CHARO GILES DO Jul 24, 2020 10:11
[2020-07-24] MEDS ORDERED: ASPIRIN CHEWABLE 81 MG TABLET. PO ONE (10:15)
[2020-07-24 10:37] LABS: BASO # 0.2 x10^3/uL (0.0-0.2); BASO % 1 % (0-3); EOS % 0 % (0-3); HEMATOCRIT 27.4 % (36.0-47.0); HEMOGLOBIN 7.4 g/dL (12.0-15.5); LYMPH # 6.4 x10^3/uL (1.0-4.8); LYMPH % 21 % (24-48); MEAN CORPUSCULAR HEMOGLOBIN 18 pg (25-35); MEAN CORPUSCULAR HGB CONC 27 g/dL (31-37); MEAN CORPUSCULAR VOLUME 67 fL (79-100); MONO # 1.3 x10^3/uL (0.0-1.1); MONO % 4 % (0-9); NEUT # 22.3 x10^3uL (1.8-7.7); NEUT % 74 % (31-73); RED CELL DISTRIBUTION WIDTH 18.5 % (11.5-14.5); WHITE BLOOD COUNT 30.2 x10^3/uL (4.0-11.0)
--- NOTE | 2020-07-24 10:54 | RAD ---
AP portable chest radiograph 07/24/2020 Clinical History: Shortness of breath. An AP erect portable digital radiograph of the chest was obtained. Comparison study is dated 09/17/2019. The cardiac silhouette is normal in size. The thoracic aorta is tortuous. Atherosclerotic calcificati on of the thoracic aorta is seen. Emphysematous changes are seen involving both lungs. No acute pulmo nary infiltrate is noted. No pneumothorax or pleural effusion is seen. The patient is post kyphoplast y type procedure in the region of the T12 vertebral body. There is diffuse osteopenia of the visualiz ed bony structures. Degenerative changes are seen involving the thoracic spine and both shoulders. Impression: No acute abnormality is seen. Electronically signed by: Kevin Julian MD (07/24/2020 10:47 AM) [id number]
[2020-07-24 10:56] LABS: CALCIUM 9.9 mg/dL (8.5-10.1); CREATININE 2.9 mg/dL (0.6-1.0)
[2020-07-24 11:05] LABS: POTASSIUM 7.1 mmol/L (3.5-5.1)
[2020-07-24 11:06] LABS: PLATELET COUNT 914 x10^3/uL (140-400)
[2020-07-24] MEDS ORDERED: CALCIUM GLUCONATE 1,000 MG/10 ML VIAL IV ONE (11:45)
[2020-07-24] MEDS ORDERED: DEXTROSE 50% 25 GM / 50ML DISP.SYRIN. IV ONE (11:45)
[2020-07-24] MEDS ORDERED: IV NORMAL SALINE 1,000ML 1,000 ML IV ONE (11:45)
[2020-07-24] MEDS ORDERED: INSULIN REGULAR 100 UNIT/ML 3ML VIAL. IV ONE (11:45)
[2020-07-24] MEDS ORDERED: SODIUM BICARB ADULT 8.4% 50 MEQ/50 ML DISP.SYRIN. IV ONE ×2 (11:45→14:15)
[2020-07-24 13:29] LABS: % LYMPHS 32 % (24-48); % MONOS 5 % (0-10); % SEGS 63 % (35-66); PLT ESTIMATE INCREASED (ADEQUATE)
[2020-07-24 13:30] LABS: MICROCYTOSIS MOD
[2020-07-24] MEDS ORDERED: SODIUM BICARBONATE IVF 150 MEQ in IV DEXTROSE 5% 1,000 ML IV ONE (13:30)
--- NOTE | 2020-07-24 13:30 | EKG ---
[address] [address] Test Date: 2020-07-24 Test Time: 10:44:38 Pat Name: JOÃO RODRIGUEZ Department: Room: Gender: F Chemic Mangler: : 1945 Requested By: CHARO GILES Order Number: [id number] Reading MD: Measurements Intervals [place] Rate: 94 P: 90 MS: 146 QRS: -72 QRSD: 92 T: 92 QT: 330 QTc: 418 Interpretive Statements SINUS RHYTHM ABNORMAL LEFT AXIS DEVIATION LOW LIMB LEAD VOLTAGE LEFT ANTERIOR FASCICULAR BLOCK QRS(T) CONTOUR ABNORMALITY CONSIDER ANTEROSEPTAL MYOCARDIAL DAMAGE T ABNORMALITY IN HIGH LATERAL LEADS ABNORMAL ECG RI6.02 No previous ECG available for comparison
[2020-07-24 13:31] LABS: ANISOCYTOSIS SLIGHT; HYPOCHROMIA SLIGHT; OVALOCYTES OCC; POLYCHROMASIA SLIGHT; TARGET CELLS OCC; TEAR DROP CELLS OCC
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
--- NOTE | 2020-07-24 14:50 | NUR ---
The patient, JOÃO RODRIGUEZ, 74 y/o, F admitted by SCOTT MOLINA MD, was given written information regarding hospital policies, unit procedures and contact persons. Valuables were checked and left in patients room. pt's vital signs are stable at this time. Dr. Molina at bedside.
[2020-07-24] MEDS ORDERED: SODIUM POLYSTYRENE SULFONATE 15 GM/60 ML ORAL.SUSP. PO ONE (15:00)
--- NOTE | 2020-07-24 15:00 | NUR ---
called Dr. Molina about patient flagging for severe sepsis. Dr. Molina states he did not want to start antibiotics and believes it is leukocytosis and needs a bone marrow biopsy in the future. he did give orders for Normal Saline @ 100 ml/hr and CBC and CMP daily for the next 3 days. Will ctm.
[2020-07-24] MEDS: IV NORMAL SALINE 1,000ML 1,000 ML IV SCH (15:14)
--- NOTE | 2020-07-24 21:00 | NUR ---
Spoke with Dr. Molina regarding pts status. Including pts low BPs and potassium of 7.1 this am, with no recheck since. Dr Molina said tomorrow am recheck is fine. and to give pt a 500cc/ NS bolus. Immediately following conversation, started pts 500cc NS bolus.
[2020-07-25] VITALS (26 sets, daily range): BP systolic 82–103; BP diastolic 44–65
[2020-07-25] MEDS: IV NORMAL SALINE 1,000ML 1,000 ML IV SCH ×2 (01:00→15:14)
[2020-07-25 06:50] LABS: BASO % 0 % (0-3); EOS # 0.1 x10^3/uL (0.0-0.7); EOS % 0 % (0-3); HEMATOCRIT 21.8 % (36.0-47.0); LYMPH # 3.6 x10^3/uL (1.0-4.8); LYMPH % 20 % (24-48); MEAN CORPUSCULAR HEMOGLOBIN 18 pg (25-35); MEAN CORPUSCULAR HGB CONC 28 g/dL (31-37); MEAN CORPUSCULAR VOLUME 64 fL (79-100); MONO # 0.8 x10^3/uL (0.0-1.1); MONO % 4 % (0-9); NEUT # 13.5 x10^3uL (1.8-7.7); NEUT % 75 % (31-73); PLATELET COUNT 650 x10^3/uL (140-400); RED CELL DISTRIBUTION WIDTH 18.2 % (11.5-14.5)
[2020-07-25 07:02] LABS: CALCIUM 7.5 mg/dL (8.5-10.1); CREATININE 1.7 mg/dL (0.6-1.0); GFR 29.5
[2020-07-25 07:06] LABS: HEMOGLOBIN 6.1 g/dL (12.0-15.5)
[2020-07-25 07:11] LABS: POTASSIUM 2.9 mmol/L (3.5-5.1)
[2020-07-25] MEDS ORDERED: MAGNESIUM SULFATE 1GM 100 ML IV ONE (08:30)
[2020-07-25] MEDS ORDERED: IRON SUCROSE COMPLEX 400 MG in IV NORMAL SALINE 250ML 250 ML IV ONE (08:30)
[2020-07-25] MEDS: POTASSIUM CHLORIDE 20 MEQ TABLET.ER. PO SCH ×2 (08:45→21:04)
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
[2020-07-26] VITALS (28 sets, daily range): BP systolic 85–143; BP diastolic 50–88
[2020-07-26] MEDS: IV NORMAL SALINE 1,000ML 1,000 ML IV SCH (01:20)
[2020-07-26 06:45] LABS: BASO % 0 % (0-3); EOS # 0.1 x10^3/uL (0.0-0.7); EOS % 1 % (0-3); LYMPH # 3.6 x10^3/uL (1.0-4.8); LYMPH % 31 % (24-48); MEAN CORPUSCULAR HEMOGLOBIN 18 pg (25-35); MEAN CORPUSCULAR HGB CONC 29 g/dL (31-37); MEAN CORPUSCULAR VOLUME 62 fL (79-100); MONO # 0.6 x10^3/uL (0.0-1.1); MONO % 5 % (0-9); NEUT # 7.6 x10^3uL (1.8-7.7); NEUT % 64 % (31-73); PLATELET COUNT 540 x10^3/uL (140-400); RED CELL DISTRIBUTION WIDTH 18.2 % (11.5-14.5); WHITE BLOOD COUNT 11.9 x10^3/uL (4.0-11.0)
[2020-07-26 06:50] LABS: CALCIUM 6.7 mg/dL (8.5-10.1); CREATININE 1.2 mg/dL (0.6-1.0); GFR 44.2; HEMATOCRIT 18.7 % (36.0-47.0); HEMOGLOBIN 5.5 g/dL (12.0-15.5)
[2020-07-26 06:54] LABS: POTASSIUM 2.2 mmol/L (3.5-5.1)
[2020-07-26] MEDS ORDERED: MAGNESIUM SULFATE 1GM 100 ML IV ONE (07:15)
--- NOTE | 2020-07-26 07:21 | NUR ---
Critical lab values reported this am of Hgb of 5.5 and Potassium of 2.2. Dr. Molina notified regarding lab values. Received orders for 2 units PRBCs, 1 gm Mag Sulfate and increase KCL to 30 mEq BID. Will administer medications and continue to monitor.
[2020-07-26 07:59] LABS: % BANDS 13 % (0-9); % LYMPHS 14 % (24-48); % MONOS 1 % (0-10); % SEGS 72 % (35-66); NUCLEATED RBC 1
[2020-07-26 08:00] LABS: ANISOCYTOSIS MOD; HYPOCHROMIA MOD; PLT ESTIMATE INCREASED (ADEQUATE)
[2020-07-26 08:01] LABS: POIKILOCYTOSIS SLIGHT; TOXIC GRANULATION PRESENT
[2020-07-26 08:02] LABS: MICROCYTOSIS MOD; OVALOCYTES PRESENT
[2020-07-26 08:03] LABS: TEAR DROP CELLS PRESENT
[2020-07-26 08:05] LABS: POLYCHROMASIA PRESENT
[2020-07-26] MEDS: POTASSIUM BICARB 10 MEQ EFFERVESCENT TABLET. PO SCH ×2 (08:21→20:30)
[2020-07-26] MEDS ORDERED: POTASSIUM CHLORIDE 10 MEQ TABLET.ER. PO SCH (09:00)
--- NOTE | 2020-07-26 09:05 | PN ---
DATE: 07/26/2020 ATTENDING PHYSICIAN: Dr. Kaufman. SUBJECTIVE: The patient is alert. She is feeling a little bit stronger, but still remains weak. She denies any pains or dyspnea. With hydration, her creatinine and BUN have improved. OBJECTIVE FINDINGS: VITAL SIGNS: Blood pressure today is up to 103/55, pulse 90 and regular. She is afebrile and oxygen saturation are 96% on room air. HEENT: The orbits are less sunken. Pupils are reactive. Sclerae nonicteric. NECK: Supple. LUNGS: Clear. CARDIOVASCULAR: Showed regular heart tones. No gallops. ABDOMEN: Soft, scaphoid. No liver or spleen enlargement. I did not palpate any masses. EXTREMITIES: Without edema, significant muscle wasting. NEUROLOGIC: Focally intact. Flat affect. SKIN: Warm and dry. LABORATORY DATA: Her creatinine on admission was 2.9 mg/dL. It is down to 1.2 mg/dL. BUN is down to 45 with hydration. Potassium remains low at 2.2 mEq. Sodium 140 mEq/L. The hemoglobin has drifted downwards due to hemodilution from IV hydration. White count improved to 11,900, hemoglobin has dropped to 5.5 g/dL, platelets are down to 540,000. ASSESSMENT: 1. This 74-year-old female has profound dehydration. She has been rehydrated. 2. Anemia of chronic disease, aggravated by dilutional factors. She is symptomatic and has dropped to under 6 mg/dL. 3. Chronic obstructive pulmonary disease due to tobacco use. 4. Osteoporosis and compression fracture. 5. Hypokalemia, now. 6. Microcytic anemia. 7. Generalized debilitation. PLAN: 1. We can discontinue her IV hydration. 2. I have ordered 2 units of packed red blood cells to be transfused today to increase oxygen carrying capacity in this symptomatic patient. 3. Serial chemistries. 4. Oral potassium and magnesium replacement. 5. Now that her creatinine has come to baseline normal range, I will order a CT of the chest and abdomen for tomorrow to rule out underlying malignancy that is causing her condition. 6. Diet as tolerated. Encourage fluids. 7. Daily weights. 8. Physical therapy to see in the morning regarding recommendations. SCOTT KAUFMAN MD DR: HAROLDO/theodora JOB#: [id number] / [id number]
--- NOTE | 2020-07-26 11:01 | NUR ---
Blood transfusion started at 1045. Tubing primed with Normal Saline & then primed with blood. Transfusion started at 75 mL/hr, patient monitored closely x 15 min. No reaction noted, tranfusion increased to 125 mL/hr.
--- NOTE | 2020-07-26 14:35 | NUR ---
Blood transfusion started at 1435. Tubing primed with Normal Saline & then primed with blood. Transfusion started at 75 mL/hr, patient monitored closely x 15 min. No reaction noted, tranfusion increased to 125 mL/hr.
[2020-07-27] VITALS (13 sets, daily range): BP systolic 79–125; BP diastolic 50–70
[2020-07-27 06:31] LABS: BASO % 0 % (0-3); EOS # 0.1 x10^3/uL (0.0-0.7); EOS % 1 % (0-3); HEMATOCRIT 30.2 % (36.0-47.0); LYMPH # 3.5 x10^3/uL (1.0-4.8); LYMPH % 27 % (24-48); MEAN CORPUSCULAR HEMOGLOBIN 22 pg (25-35); MEAN CORPUSCULAR HGB CONC 31 g/dL (31-37); MEAN CORPUSCULAR VOLUME 72 fL (79-100); MONO # 0.8 x10^3/uL (0.0-1.1); MONO % 6 % (0-9); NEUT # 8.5 x10^3uL (1.8-7.7); NEUT % 66 % (31-73); PLATELET COUNT 515 x10^3/uL (140-400); RED BLOOD COUNT 4.18 x10^6/uL (3.50-5.40); RED CELL DISTRIBUTION WIDTH 26.8 % (11.5-14.5); WHITE BLOOD COUNT 12.9 x10^3/uL (4.0-11.0)
[2020-07-27 06:32] LABS: HEMOGLOBIN 9.4 g/dL (12.0-15.5)
[2020-07-27 06:40] LABS: CALCIUM 7.2 mg/dL (8.5-10.1); CREATININE 1.1 mg/dL (0.6-1.0); GFR 48.8; POTASSIUM 3.3 mmol/L (3.5-5.1)
[2020-07-27] MEDS ORDERED: IOHEXOL 300 MG/ML 75 ML VIAL. IV ONE (08:45)
[2020-07-27] MEDS: POTASSIUM BICARB 10 MEQ EFFERVESCENT TABLET. PO SCH ×2 (09:18→20:31)
--- NOTE | 2020-07-27 09:54 | PN ---
DATE: 07/27/2020 ATTENDING PHYSICIAN: Dr. Kaufman. SUBJECTIVE: The patient is feeling stronger. She denied any shortness of breath, dyspnea, eating a little better. She just got back from her CT scan. OBJECTIVE FINDINGS: VITAL SIGNS: Blood pressure today is improved to 115/66, pulse 87 and regular, temperature 98.4 degrees Fahrenheit, oxygen saturation 94% on room air. HEENT: Head is without trauma. Pupils are reactive. Sclerae nonicteric. Oropharynx clear. NECK: Supple. LUNGS: Good breath sounds, minimal rhonchi in the left upper airways. CARDIOVASCULAR: Showed regular heart tones. No gallops. ABDOMEN: Soft. EXTREMITIES: Show muscle wasting, no edema. NEUROLOGIC: Focally intact. Speech is fluent. SKIN: Warm and dry. LABORATORY DATA: Hemoglobin is transfused up to 9.4 g/dL, white count is 12,900. Chemistry panel showed improvement. Potassium is replaced up to 3.3 mEq, sodium 139 mEq. BUN down to 30, creatinine down to 1.1 mg/dL. CT of abdomen and pelvis are pending at this time. ASSESSMENT: 1. A 74-year-old female with profound dehydration, rehydrated. 2. Anemia of chronic disease. Transfuse to increase oxygen carrying capacity. She is feeling better. 3. Chronic obstructive pulmonary disease due to tobacco use. 4. Osteoporosis. 5. Hypokalemia, improved with replacement. 6. Microcytic anemia. 7. Generalized debilitation. PLAN: 1. Serial chemistries and CBCs. 2. Oral potassium and magnesium replacement. 3. I reviewed the CT of the chest and abdomen to rule out underlying pathology. 4. Physical therapy recommendation. 5. Discharge planning for later this week. SCOTT KAUFMAN MD DR: HAROLDO/theodora JOB#: [id number] / [id number]
--- NOTE | 2020-07-27 11:40 | RAD ---
ADDENDUM #1 Addendum to impression: The severe chronic bilateral hydroureteronephrosis is unchanged from 2017 but the diffuse bladder wal l thickening is new from 2019. There is no discrete focal bladder mass, however underlying malignancy is not excluded. Consider correlation with cystoscopy if clinically appropriate. As stated in the findings, there is irregular plaque in the infrarenal abdominal aorta causing approx imately 75 percent luminal narrowing over a 2.5 cm length. This is new from 2017. Cannot compared to CT from 2019 as there is no IV contrast on that exam. Findings were discussed by Dr. Parks with Dr. Molina at 12:45 PM on 2020 Electronically signed by: Marisa Parks MD (07/27/2020 12:46 PM) [id number] ORIGINAL REPORT EXAM: CT CHEST, ABDOMEN AND PELVIS WITH CONTRAST INDICATION: Possible cancer COMPARISON: CT abdomen pelvis 09/24/[address] chest abdomen and pelvis 07/14/2017. MRI thoracic spin e 09/23/2019. TECHNIQUE: Helical CT of the chest abdomen, and pelvis performed after the administration of intrav enous contrast. Sagittal and coronal reformats were obtained. One or more of the following individualized dose reduction techniques were utilized for this examinat ion: 1. Automated exposure control 2. Adjustment of the mA and/or kV according to patient size 3. Use of iterative reconstruction technique. FINDINGS: CHEST: Heart/Systemic Vasculature: The heart is normal in size. No pericardial effusion. There are coronary artery calcifications. The thoracic aorta is normal in caliber. There are moderate calcifications at the left subclavian artery origin. Central pulmonary arteries are clear. Mediastinum and ishan: No mediastinal or hilar lymphadenopathy. Lungs and pleura: Evaluation of the lungs is limited by motion artifact. There is moderate apical pre dominant centrilobular emphysema. There are increased small bilateral pleural effusions and adjacent consolidations, likely atelectasis. Neck/Axilla/Body Wall: Thyroid gland is normal. No thoracic inlet or axillary lymphadenopathy. Breast tissue symmetric. Bones: There are changes of vertebroplasty in a T12 compression fracture. Compression fracture of T5, T7, T8, T9, T11, and L1 are unchanged from 09/23/2019. The L1 compression fracture has severe height l oss and 3 mm retropulsion of cortex, unchanged. The other fractures have mild or moderate height loss . Other: A hyperdense or enhancing soft tissue mass measuring approximately 3.6 x 2.0 cm extending from the thoracic canal through the right foramen and into the paravertebral space at the level of T1-T2 is unchanged from MRI thoracic spine 2017. ABDOMEN AND PELVIS: Liver: Normal size and attenuation. No focal lesion. Gallbladder/Biliary Tree: The gallbladder is not visualized. No ductal dilatation. Pancreas: Normal. Spleen: Normal. Adrenal Glands: Normal. Kidneys/Ureters/Bladder: Severe bilateral hydronephrosis with mild cortical thinning, greater on the right, is unchanged from 09/24/2019. Severe hydroureter is unchanged. There is bilateral urothelial th ickening and enhancement. Moderate diffuse urinary bladder wall thickening is unchanged. Circumaortic left renal vein. Reproductive Organs: Uterus is surgically absent. No adnexal mass. Stomach, small bowel, and colon: Stomach is mildly distended without focal wall thickening. No small bowel obstruction. The colon is unremarkable. The appendix is normal. Vasculature: Abdominal aorta and inferior vena cava are normal in caliber. There is moderate calcifie d aortic atherosclerosis with new irregular plaque at the level of the inferior mesenteric artery shira gin that causes 75 percent luminal narrowing (image 37, series 4). Moderate calcifications in the sandra ac arteries. Lymph Nodes: Small aortocaval and periaortic lymph nodes are unchanged. Peritoneum and retroperitoneum: There is a new small volume of free fluid in the abdomen and pelvis. No free air. Bones: Transitional anatomy at the lumbosacral junction with the lowest disc space labeled L6 S1, in keeping with MRI lumbar spine 09/23/2019 A 1.2 cm sclerotic lesion in the left femoral head is unchange d. Compression fractures of L1, L2, L3, L4, and L5 are unchanged. The L1, L3, and L4 compression frac tures have severe height loss and mild retropulsion of cortex, unchanged. The L5 compression fracture helps to moderate height loss and mild retropulsion of cortex. L2 fracture has mild height loss and no retropulsion of cortex. Other: Unchanged cachexia.. IMPRESSION: 1. 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 2. Increased, small bilateral pleural effusions and adjacent consolidative opacities, likely atelecta sis. Unchanged moderate emphysema. Evaluation of the lungs is limited due to motion artifact. 3. Unchanged severe chronic bilateral hydroureteronephrosis and moderate diffuse bladder wall thicken ing. There is also right greater than left urothelial thickening and enhancement. 4. Multiple thoracic and lumbar compression fractures, some of which are severe and have mild retropu lsion of cortex, are unchanged and described above. Electronically signed by: Marisa Parks MD (07/27/2020 11:37 AM) [id number]
[2020-07-27] MEDS ORDERED: ACETAMINOPHEN 500 MG TABLET PO PRN (11:45)
--- NOTE | 2020-07-27 16:55 | NUR ---
Patient had a decent day, A&Ox4, VSS. PT/OT worked with patient and pt walked with assistance with walker and PT/OT from one side of bed to the chair walking a short distance. Generally complained of still feeling weak but did mention feeling proud of self for walking after not walking for a "long time". Pt sat in chair for a small part of day throughout lunchtime. Pt was agreeable to discharging to a SNF and Brenna Toney is working on placement. Covid swab was complete for placement, awaiting results of the PCR. Rapid covid swab was negative. Pt did refuse a shower due to her being tired and weak. GERARDO. Beryl RN
[2020-07-28] MEDS: POTASSIUM BICARB 10 MEQ EFFERVESCENT TABLET. PO SCH (07:47)
[2020-07-28 08:14] VITALS: BP 86/59
--- NOTE | 2020-07-28 09:19 | DS ---
DATE OF DISCHARGE: 07/28/2020 ATTENDING PHYSICIAN: Dr. Kaufman. FINAL DISCHARGE DIAGNOSES: 1. Profound dehydration, rehydrated. 2. Anemia of chronic disease. 3. Chronic obstructive pulmonary disease due to tobacco use. 4. Profound osteoporosis. 5. Hypokalemia. 6. Microcytic anemia. 7. Severe protein-calorie malnutrition and cachexia. 8. Generalized debilitation. 9. Calcification of aorta. 10. Partial hydronephrosis with normal renal function. HISTORY AND PHYSICAL: The patient is a 74-year-old female with multiple medical issues. Unfortunately, she has been living with her son, they has been homeless, bouncing around from various sites, so she has not gone to see the doctor. She was profoundly weak. When she presented to the ED, she was very emaciated, weight was down to 63 pounds, she was clearly dehydrated. She was admitted for further treatment and evaluation. PHYSICAL EXAMINATION: Please see the dictated note. PERTINENT LABORATORY AND X-RAY STUDIES: Admission hemoglobin had been 7.4 g/dL in a hemoconcentrated state with dilutional effects it came down to 6.1 the next day, on the third day was down to 5.5 g/dL. Because of her symptoms, we did elect to give her blood transfusion at this time. She did receive some Venofer of the second hospital day; however, her degree of anemia was severe enough she needed transfusion. Therefore, 2 units of packed red cells was safely infused. Her hemoglobin came up to 9.4 g/dL the next day. White count had been 30,200; repeated was down to 18,000 and 11,000 and 12,000 respectively. Platelets were elevated as an acute phase reactant. Initial platelet count was 914,000 per mL, it came down to 515,000 per mL. Her chemistry panel showed sodium 135 mEq, potassium has been diminished down to 2.2 mEq per liter with replacement, potassium and magnesium and came up to 3.3 mEq. Supplementation was continued along with followup plans for followup chemistry. Her admission creatinine had been 2.9 mg/dL with a BUN of 100. With gentle hydration daily, her lab work came back improved. Creatinine came down to 1.7, 1.2 and 1.1 on the fourth hospital day. Her BUN declined from 171 to 45 to 30 mg/dL. Her calcium is concomitantly low due to low albumin as 55% of calcium is down, adjusted for the low albumin, this is a normal calcium. She had an imaging studies done on the third hospital day, we had to wait for the creatinine did come down to a fairly normalize range before we can safely administered the CT contrast. I spoke at length with the radiologist. CT of the chest shows emphysematous changes, multiple compression fractures identified at T5, T7, T8, T9, T11, L1. There is evidence of previous kyphoplasty with cement. The pancreas was normal. Spleen was normal. Adrenal glands were normal; however, there is severe bilateral hydronephrosis with mild cortical thickening, greater on the right. This is unchanged from a previous CT scan in 09/2019. Severe hydroureter is unchanged despite normal function. She has urothelial thickening and enhancement, moderate diffuse urinary bladder wall thickening, etiology is unclear. At this time given the patient's generalized weakness, I think further evaluation has to be postponed. I do not think she can tolerate a general anesthetic or cystoscopy. Certainly, this can be entertained at a later date if she improves her overall clinical situation. In addition, she had significant calcification of the distal aorta whether this is causing symptoms remains to be seen. I explained the details of the CT scan with the patient and hopefully she understands what is going on. COURSE IN THE HOSPITAL: The patient was admitted. She was placed in the ICU. We gave gentle IV hydration with marked improvement of her symptoms. Serial chemistries and CBCs were drawn with normalization of values. On the third hospital day, her hemoglobin dropped. We did order 2 units of packed red cells to be transfused to increase oxygen carrying capacity in this symptomatic patient. She tolerated well. She had a CT of the chest, abdomen and pelvis on the fourth hospital day for followup of underlying malignancy, certainly none is obvious at this time, further diagnostic treatment remains to be same. Physical therapy saw the patient and their recommendations are to continue PT and strengthening at an extended care facility. Therefore, on the fifth hospital day, arrangements were made for the patient to go to [facility] to continue physical therapy. She will follow a regular diet. Her hospital meds were continued. They include the following: She should continue her Restoril 15 mg at bedtime, potassium was decreased to 20 mg p.o. daily, Zyrtec 10 mg daily, vitamin B12 500 mcg tablet daily, ferrous sulfate 325 b.i.d., hydrocodone p.r.n. pain, Protonix 40 mg daily, MiraLax 17 g daily. For now, we held her docusate, lactobacillus and magnesium. I also recommended Combivent Respimat metered dose inhaler 1 puff q.i.d. She remains a full code. Hopefully, she and her son can get their housing situation straighten out so that there is a living quarters to return [facility]. On the fifth hospital day, the patient was discharged from our hospital in stable condition to go to [facility] for continued care. Her prognosis is fair. TOTAL DISCHARGE TIME SPENT: 41 minutes. SCOTT KAUFMAN MD DR: HAROLDO/theodora JOB#: [id number] / [id number] ALE Combs MD
--- NOTE | 2020-07-28 11:45 | NUR ---
Patient discharged to [facility]. A&Ox4 and VSS at discharge. All belongings left with patient at discharge including patients own personal wheelchair. Report given to EPIFANIO Barker at the facility via telephone. Medications and patient information sent in a packet with pt. This RN wheeled patient to [facility] vehicle.
== END 2020-07-28 11:45 | DRG 682 ==
LOC: ER 09:55 → 1 SOUTH 12:54 → ICU 14:46
PROVIDERS: ADMIT Hospitalist; ATTEND Hospitalist
PROC: 30233N1 Transfusion of Nonautologous Red Blood Cells into Peripheral Vein, Percutaneous Approach (ICD-10-PCS; principal; 2020-07-24)
DX: N17.0 Acute kidney failure with tubular necrosis (principal); E43 Unspecified severe protein-calorie malnutrition; R64 Cachexia; Z68.1 Body mass index [BMI] 19.9 or less, adult; E87.2 Acidosis; E86.0 Dehydration; N13.30 Unspecified hydronephrosis; E87.5 Hyperkalemia; D50.9 Iron deficiency anemia, unspecified; D63.8 Anemia in other chronic diseases classified elsewhere; D72.829 Elevated white blood cell count, unspecified; E87.6 Hypokalemia; I70.0 Atherosclerosis of aorta; J44.9 Chronic obstructive pulmonary disease, unspecified; M81.0 Age-related osteoporosis without current pathological fracture; N18.9 Chronic kidney disease, unspecified; Z59.0 Homelessness; Z79.899 Other long term (current) drug therapy; Z87.891 Personal history of nicotine dependence; Z90.49 Acquired absence of other specified parts of digestive tract; Z90.710 Acquired absence of both cervix and uterus; Z20.822 Contact with and (suspected) exposure to COVID-19; Z88.0 Allergy status to penicillin
CPT/HCPCS: 36415; 71045; 71260; 74177; 80048; 82550; 83605; 83880; 84484; 85007; 85025; 86850; 86900; 86901; 86920; 87040; 87426; 93005; 96361; 96374; 96375; 99291; 99292; J0610; J1756; J1815; J3475; J7050; P9016; Q9967; U0003; 97110; J7030

== ENCOUNTER 2020-10-16 11:30 | Emergency (ER) | payer MEDICARE ==
[~2020-10-16] VITALS: Ht 157.5 cm; Wt 36.8 kg
--- NOTE | 2020-10-16 11:34 | PHYS DOC ---
Past History Past Medical History: No Pertinent History, Other Additional Past Medical Histor: NEUROPATHY Past Surgical History: Appendectomy, Hysterectomy, Other Additional Past Surgical Histo: SPINAL TUMOR REMOVED, VERTEBROPLASTY Smoking: Non-smoker Alcohol Use: None Drug Use: None General Adult EDM: Chief Complaint: ABDOMINAL PAIN HPI: HPI: 74-year-old female past medical history of COPD, low back pain and GERD presents to the ED brought in by EMS with complaints of lower abdominal/pelvic pain, only when urinating, which she reports is painful. Patient also reports blood in her urine stating her symptoms have been present for 2 weeks. Patient comes from [facility] because she was told the urinalysis will take 10 days to result (Dr. Alvarado). Patient denies any associated flulike symptoms, fever/chills, myalgias, flank pain, diarrhea or constipation, nausea or vomiting. States she's tolerating oral intake both fluids and solids. EMR was reviewed and patient was admitted to the hospital in July -pt has struggled with homelessness and is known to have severe protein calorie malnutrition, cachexia with anemia of chronic disease and osteoporosis. Review of Systems: Review of Systems: Constitutional: Denies fever or chills Eyes: Denies change in visual acuity HENT: Denies nasal congestion or sore throat Respiratory: Denies cough or shortness of breath or hemoptysis Cardiovascular: Denies chest pain or edema or syncope GI: Denies abdominal pain, nausea, vomiting, bloody stools or diarrhea : Denies abnormal vaginal discharge or vaginal bleeding Musculoskeletal: Denies any new or worsening back pain, joint pain or leg swelling Integument: Denies rash or diaphoresis Neurologic: Denies headache, focal weakness or sensory changes Endocrine: Denies polyuria or polydipsia Lymphatic: Denies swollen glands Psychiatric: Denies depression or anxiety Allergies: Allergies: Allergies Coded Allergies Type Severity Reaction Last Updated Verified Penicillins Allergy Intermediate 07/10/17 Yes Physical Exam: PE: Constitutional: Well developed, well nourished, no acute distress, non-toxic appearance, no tachycardia, map of 75 on arrival, thin HENT: Normocephalic, atraumatic, dry mucous membranes Eyes: EOMI, conjunctiva normal, no discharge. Neck: Normal range of motion, supple, Cardiovascular: S1/2 present, regular rhythm Lungs & Thorax: Speaking in full sentences, bilateral equal chest rise, no tachypnea or increased work of breathing Abdomen: soft, no tenderness, no rigidity/guarding/peritonitis, location of patient's abdominal pain is suprapubic-she has no rash, cannot reproduce her pain with palpation Skin: Warm, dry, no erythema, no rash. [] Back: No midline tenderness, no CVA tenderness. [] Extremities: No tenderness, no cyanosis, no lower extremity edema Neurologic: Alert and oriented X 3, normal motor function, normal sensory function, no focal deficits noted. [] Psychologic: Affect normal, judgement normal, mood normal. [] EKG: EKG: [] Radiology/Procedures: Radiology/Procedures: [] Heart Score: C/O Chest Pain: No Risk Factors: Risk Factors: DM, Current or recent (<one month) smoker, HTN, HLP, family history of CAD, obesity. Risk Scores: Score 0 - 3: 2.5% MACE over next 6 weeks - Discharge Home Score 4 - 6: 20.3% MACE over next 6 weeks - Admit for Clinical Observation Score 7 - 10: 72.7% MACE over next 6 weeks - Early Invasive Strategies Course & Med Decision Making: Course & Med Decision Making Pertinent Labs and Imaging studies reviewed. (See chart for details) Concern for urinary tract infection with hematuria in a well appearing female, who is very thin, MAP always > [address] from 08/06 reviewed by myself "unchanged severe chronic bilateral hydroureteronephrosis and moderate diffuse bladder wall thickening. There is also right greater than left urothelial thickening and enhancement." Report also showed normal thoracic aorta and abdominal aorta. Patient reports she is voiding without difficulty or straining and was told by physician while admitted in July she had a "blockage in my bladder." Patient does not recall ever being evaluated by a jewelry cutter or urologist. Patient denies any new back pain, chest pain or upper abdominal pain. Has no neurologic deficits. Low suspicion hematuria is related to aorta. Will tx for complicated u/a and have pcp repeat u/a in 2 weeks. Will discharge home with strict ED return precautions were given for newchest/back pain, neurologic deficits, dyspnea or syncope. Encouraged urgent outpatient follow-up with PMD and urology for definitive management. Life-threatening processes were considered but are low suspicion at this time, given history, physical exam and ED workup. Pt was educated on all prescription medications and adverse effects. All patient's questions were answered and pt was stable at time of discharge. Life/limb-threatening differential includes but is not limited to, trauma, infection, obstructive uropathy, nephrolithiasis, kidney disease, malignancy, BPH, AAA/AVF/aortic dissection, or schistosomiasis. I spoken with the patient and her caregivers. I explained the patient's condition, diagnoses and treatment plan based on the information available to me at this time. I have answered the patient and her caregiver's questions and addressed any concerns. The patient and her caregivers have a good understanding of patient's diagnosis, condition and treatment plan as can be expected at this point. Vital signs have been stable. Patient's condition is s table and appropriate for discharge from the emergency department. Patient will pursue further outpatient evaluation with primary care physician or other designated or consulting physician as outlined in the discharge instructions. The patient and/or caregivers are agreeable to this plan of care and follow-up instructions have been explained in detail. The patient and/or caregivers have received these instructions in written form and have expressed an understanding of the discharge instructions. The patient and/or caregivers are aware that any significant change of condition or worsening of symptoms should prompt immediate return to this or the closest emergency department or call to [phone]. Shayne Disclaimer: Shayne Disclaimer: This electronic medical record was generated, in whole or in part, using a voice recognition dictation system. Departure Departure: Impression: Primary Impression: UTI (urinary tract infection) Additional Impressions: Cystitis Renal insufficiency Microcytic anemia Disposition: 01 DC HOME SELF CARE/HOMELESS Condition: STABLE Referrals: ALE GAUTAM MD (PCP) in 14 days for repeat u/a Patient Instructions: Hematuria, Adult, Urinary Tract Infection Additional Instructions: FOLLOW UP WITH UROLOGY: regarding chronic findings on CT from 07/2020 [facility] [place] [address] APPOINTMENTS: [phone] EMERGENCY DEPARTMENT GENERAL DISCHARGE INSTRUCTIONS Thank you for coming to [facility] (ED) today and trusting us with you care. We trust that you had a positivie experience in our Emergency Department. If you wish to speak to the department management, you may call the director at [phone]. YOUR FOLLOW UP INSTRUCTIONS ARE FOLLOWS: 1. Do you have a private Doctor? If you do not have a private doctor, please ask for a resource list of physicians or clinics that may be able to assist you with follow up care. 2. The Emergency Physician has interpreted your x-rays. The X-Ray specialist will also review them. If there is a change in the findings, you will be notified in 48 hours when at all possible. 3. A lab test or culture has been done, your results will be reviewed and you will be notified if you need a change in treatment. ADDITIONAL INSTRUCTIONS AND INFORMATION: 1. Your care today has been supervised by a physician who is specially trained in emergency care. Many problems require more than one evaluation for a complete diagnosis and treatment. We recommend that you schedule your follow up appointment as recommended to ensure complete treatment of you illness or injury. If you are unable to obtain follow up care and continue to have a problem, or if your condition worsens, we recommend that you return to the ED. 2. We are not able to safely determine your condition over the phone nor are we able to give sound medical advice over the phone. For these safety reasons, if you call for medical advice we will ask you to come to the ED for further evaluation. 3. If you have any questions regarding these discharge instructions please call the ED at [phone]. SAFETY INFORMATION: In the interest of safety, wellness, and injury prevention; we encourage you to wear your sealbelt, if you smoke; quite smoking, and we encourage family to use a protective helmet for bicycling and other sporting events that present an increased risk for head injury. IF YOUR SYMPTOMS WORSEN OR NEW SYMPTOMS DEVELOP, OR YOU HAVE CONCERNS ABOUT YOUR CONDITION; OR IF YOUR CONDITION WORSENS WHILE YOU ARE WAITING FOR YOUR FOLLOW UP APPOINTMENT; EITHER CONTACT YOUR PRIMARY CARE DOCTOR, THE PHYSICIAN WHOSE NAME AND NUMBER YOU WERE GIVEN, OR RETURN TO THE ED IMMEDIATELY. Scripts Phenazopyridine Hcl (PHENAZOPYRIDINE HCL) 200 Mg Tablet 1 TAB PO TID for urinary discomfort for 3 Days, #9 TAB 0 Refills after food Prov: NATALY TINEO DO 10/16/20 Cefpodoxime Proxetil (CEFPODOXIME PROXETIL) 100 Mg/5 Ml Susp.recon 1 TAB PO BID for uti for 14 Days, #28 TAB 0 Refills Prov: NATALY TINEO DO 10/16/20 NATALY TINEO DO Oct 16, 2020 11:34
[2020-10-16] MEDS ORDERED: IV NORMAL SALINE 1,000ML 1,000 ML IV SCH (11:45)
[2020-10-16 12:15] LABS: BASO # 0.1 x10^3/uL (0.0-0.2); BASO % 1 % (0-3); EOS # 0.2 x10^3/uL (0.0-0.7); EOS % 2 % (0-3); HEMOGLOBIN 7.6 g/dL (12.0-15.5); LYMPH # 4.7 x10^3/uL (1.0-4.8); LYMPH % 45 % (24-48); MEAN CORPUSCULAR HEMOGLOBIN 24 pg (25-35); MEAN CORPUSCULAR HGB CONC 31 g/dL (31-37); MEAN CORPUSCULAR VOLUME 78 fL (79-100); MONO % 9 % (0-9); NEUT # 4.5 x10^3uL (1.8-7.7); NEUT % 43 % (31-73); PLATELET COUNT 795 x10^3/uL (140-400); RED BLOOD COUNT 3.22 x10^6/uL (3.50-5.40); RED CELL DISTRIBUTION WIDTH 21.4 % (11.5-14.5); WHITE BLOOD COUNT 10.5 x10^3/uL (4.0-11.0)
[2020-10-16 12:43] LABS: CALCIUM 8.2 mg/dL (8.5-10.1); CREATININE 1.4 mg/dL (0.6-1.0); POTASSIUM 4.4 mmol/L (3.5-5.1)
[2020-10-16 12:44] LABS: BARBITURATES NEG (NEG); BENZODIAZEPINES NEG (NEG); CANNABINOIDS NEG (NEG); COCAINE NEG (NEG); METHADONE NEG (NEG); OPIATES POS (NEG); PHENCYCLIDINE NEG (NEG)
[2020-10-16 12:45] LABS: ANISOCYTOSIS PRESENT; HYPOCHROMIA PRESENT
[2020-10-16 12:50] LABS: AMPHETAMINE/METHAMPHETAMINE NEG (NEG)
[2020-10-16 12:51] LABS: BILIRUBIN,URINE NEG (NEG); CLARITY,URINE CLOUDY; COLOR,URINE YELLOW; GLUCOSE,URINE NEG (NEG)
[2020-10-16 12:52] LABS: NITRITE,URINE NEG (NEG); UROBILINOGEN,URINE 0.2 mg/dL (0.2 mg/dL)
[2020-10-16 12:53] LABS: BACTERIA,URINE MOD /HPF (0-FEW); SQUAMOUS EPITHELIAL CELL,UR OCC /LPF; WBC,URINE >40 /HPF (0-4)
[2020-10-16 13:05] LABS: PLT ESTIMATE ADEQUATE (ADEQUATE)
[2020-10-16] MEDS ORDERED: CEFP100S3 PO (13:08)
[2020-10-16] MEDS ORDERED: PHEN-444 PO (13:09)
[2020-10-16 13:27] VITALS: BP 118/60
== END 2020-10-16 14:04 | disposition home or self-care (01) ==
LOC: ER 11:30
DX: N30.91 Cystitis, unspecified with hematuria (principal); D50.9 Iron deficiency anemia, unspecified; N28.9 Disorder of kidney and ureter, unspecified; J44.9 Chronic obstructive pulmonary disease, unspecified; K21.9 Gastro-esophageal reflux disease without esophagitis; Z90.89 Acquired absence of other organs; Z90.710 Acquired absence of both cervix and uterus; Z88.0 Allergy status to penicillin; Z79.899 Other long term (current) drug therapy
CPT/HCPCS: 36415; 80048; 80307; 81001; 82550; 83735; 85025; 87086; 96360; 99284; J7030; P9612; 99285-25

== ENCOUNTER 2021-02-08 09:12 | Emergency (ER) | payer MEDICARE ==
[~2021-02-08] VITALS: Ht 157.5 cm; Wt 36.8 kg
[~2021-02-08 09:12] MED LIST changes: +CEFP100S3 PO; +PHEN-444 PO
[2021-02-08] MEDS ORDERED: IPRATRPIUM/ALBUTEROL 0.5/2.5MG 3 ML NEBU. ONE (09:24)
[2021-02-08 09:59] LABS: BASO % 0 % (0-3); EOS % 0 % (0-3); HEMATOCRIT 34.4 % (36.0-47.0); HEMOGLOBIN 10.2 g/dL (12.0-15.5); LYMPH # 1.6 x10^3/uL (1.0-4.8); LYMPH % 6 % (24-48); MEAN CORPUSCULAR HEMOGLOBIN 24 pg (25-35); MEAN CORPUSCULAR HGB CONC 30 g/dL (31-37); MEAN CORPUSCULAR VOLUME 79 fL (79-100); MONO # 1.2 x10^3/uL (0.0-1.1); MONO % 5 % (0-9); NEUT # 22.4 x10^3uL (1.8-7.7); NEUT % 89 % (31-73); PLATELET COUNT 822 x10^3/uL (140-400); RED BLOOD COUNT 4.33 x10^6/uL (3.50-5.40); RED CELL DISTRIBUTION WIDTH 20.7 % (11.5-14.5); WHITE BLOOD COUNT 25.1 x10^3/uL (4.0-11.0)
[2021-02-08 10:01] LABS: BGAS PH 7.42 (7.35-7.45)
[2021-02-08] MEDS ORDERED: IV NORMAL SALINE 500ML 500 ML IV ONE ×2 (10:15→11:00)
--- NOTE | 2021-02-08 10:15 | RAD ---
XR CHEST 1V History: Reason: hypoxia, sob, hx copd / Spl. Instructions: / History: Comparison: July 24, 2020 Findings: Hyperinflation with emphysematous changes. Increased patchy bibasilar opacities. Small right pleural effusion. Lower thoracic compression fractures status post kyphoplasty, unchanged. No pneumothorax. N ormal heart size. Impression: 1. Increased patchy bibasilar opacities, may represent atelectasis or developing consolidations. 2. Small right pleural effusion. 3. Hyperinflation with emphysematous changes. Electronically signed by: Srinivas Narayan DO (02/08/2021 10:12 AM) [id number]
[2021-02-08 10:18] LABS: ALBUMIN 2.3 g/dL (3.4-5.0); ALBUMIN/GLOBULIN RATIO 0.4 (1.0-1.7); CALCIUM 9.5 mg/dL (8.5-10.1); CREATININE 2.4 mg/dL (0.6-1.0); GFR 19.8; TOTAL BILIRUBIN 0.3 mg/dL (0.2-1.0); TOTAL PROTEIN 7.5 g/dL (6.4-8.2)
[2021-02-08] MEDS ORDERED: CEFEPIME HCL 1 GM in IV NORMAL SALINE 50ML 50 ML IV ONE (10:20)
[2021-02-08] MEDS ORDERED: CEFEPIME HCL 1 GM VIAL ONE (10:36)
[2021-02-08] MEDS ORDERED: IV NORMAL SALINE 50ML 50 ML ONE (10:36)
[2021-02-08] MEDS ORDERED: VANCOMYCIN 1.5 GM in IV NORMAL SALINE 500ML 500 ML IV ONE (10:45)
--- NOTE | 2021-02-08 10:59 | EKG ---
[address] [address] Test Date: 2021-02-08 Test Time: 10:07:55 Pat Name: JOÃO RODRIGUEZ Department: Room: Gender: F Licensed Nurse Practitioner: [facility] : 1945 Requested By: KOFI SANTIAGO Order Number: [id number] Reading MD: Measurements Intervals Chandler Rate: 121 P: 68 OR: 138 QRS: -8 QRSD: 66 T: 62 QT: 300 QTc: 429 Interpretive Statements SINUS TACHYCARDIA LEFTWARD AXIS LOW LIMB LEAD VOLTAGE QRS(T) CONTOUR ABNORMALITY CONSIDER ANTEROSEPTAL MYOCARDIAL DAMAGE POSSIBLY ABNORMAL ECG RI6.02 No previous ECG available for comparison
[2021-02-08] MEDS ORDERED: CALCIUM GLUCONATE 1,000 MG/10 ML VIAL IV ONE (11:00)
[2021-02-08 11:03] LABS: % BANDS 23 % (0-9); % LYMPHS 15 % (24-48); % MONOS 4 % (0-10); % SEGS 58 % (35-66); PLATELET CLUMP PRESENT; PLT ESTIMATE INCREASED (ADEQUATE)
--- NOTE | 2021-02-08 11:35 | PHYS DOC ---
Past History Past Medical History: COPD, Other Additional Past Medical Histor: NEUROPATHY, dehydration, osteoporosis, anxiety, anemia, kidney failure Past Surgical History: Appendectomy, Hysterectomy, Other Additional Past Surgical Histo: SPINAL TUMOR REMOVED, VERTEBROPLASTY Smoking: Non-smoker Alcohol Use: None Drug Use: None General Adult EDM: Chief Complaint: SHORTNESS OF BREATH HPI: HPI: Patient is a 75 year old female with past medical history of COPD who presents with cough, shortness of breath. Over the past couple of days has had a wet productive sounding cough. She has had increasing shortness of breath and shallow respirations. Was seen to have low pulse ox with EMS into the 70s. Came in on 6 L/min on nonrebreather mask. Patient complains only shortness of breath and chronic back pain. Denies chest pain. Denies lower extremity swelling. Review of Systems: Review of Systems: Constitutional: Denies fever or chills Eyes: Denies change in visual acuity HENT: Denies nasal congestion or sore throat Respiratory: + cough and shortness of breath Cardiovascular: Denies chest pain or edema GI: Denies abdominal pain, nausea, vomiting, bloody stools or diarrhea : Denies dysuria Musculoskeletal: Denies back pain or joint pain Integument: Denies rash Neurologic: Denies headache, focal weakness or sensory changes Endocrine: Denies polyuria or polydipsia Lymphatic: Denies swollen glands Psychiatric: Denies depression or anxiety Current Medications: Current Meds: Current Medications Medications (Trade) Dose Ordered Sig/Harper Start Time Stop Time Status Last Admin Dose Admin Albuterol/ Ipratropium (Duoneb) 3 ml STK-MED ONCE 02/08/21 09:24 02/08/21 09:24 DC Calcium Gluconate (Calcium Gluconate) 2,000 mg 1X ONCE 02/08/21 11:00 02/08/21 11:01 DC Cefepime HCl (Maxipime) 1 gm STK-MED ONCE 02/08/21 10:36 02/08/21 10:36 DC Cefepime HCl 1 gm/ Sodium Chloride 50 ml @ 100 mls/hr 1X ONCE 02/08/21 10:20 02/08/21 10:49 DC 02/08/21 10:41 100 MLS/HR Sodium Chloride 500 ml @ 0 mls/hr 1X ONCE 02/08/21 11:00 02/08/21 11:01 DC Vancomycin HCl 1.5 gm/Sodium Chloride 500 ml @ 250 mls/hr 1X ONCE 02/08/21 10:45 02/08/21 12:44 02/08/21 11:16 250 MLS/HR Allergies: Allergies: Allergies Coded Allergies Type Severity Reaction Last Updated Verified Penicillins Allergy Intermediate 07/10/17 Yes Physical Exam: PE: Constitutional:Appears chronically ill and cachectic. [] HENT: Normocephalic, atraumatic, bilateral external ears normal, oropharynx moist, no oral exudates, nose normal. [] Eyes: PERRLA, EOMI, conjunctiva normal, no discharge. [] Neck: Normal range of motion, no tenderness, supple, no stridor. [] Cardiovascular:Heart rate regular rhythm, no murmur [] Lungs & Thorax: + tachypnea and distand breath sounds bilaterally. [] Abdomen: Bowel sounds normal, soft, no tenderness, no masses, no pulsatile masses. [] Skin: Warm, dry, no erythema, no rash. [] Back: No tenderness, no CVA tenderness. [] Extremities: No tenderness, no cyanosis, no clubbing, ROM intact, no edema. [] Neurologic: Alert and oriented X 3, normal motor function, normal sensory function, no focal deficits noted. [] Psychologic: Affect normal, judgement normal, mood normal. [] Current Patient Data: Labs: Laboratory Tests Test 02/08/21 09:44 02/08/21 10:00 White Blood Count 25.1 x10^3/uL (4.0-11.0) H Red Blood Count 4.33 x10^6/uL (3.50-5.40) Hemoglobin 10.2 g/dL (12.0-15.5) L Hematocrit 34.4 % (36.0-47.0) L Mean Corpuscular Volume 79 fL (79-100) Mean Corpuscular Hemoglobin 24 pg (25-35) L Mean Corpuscular Hemoglobin Concent 30 g/dL (31-37) L Red Cell Distribution Width 20.7 % (11.5-14.5) H Platelet Count 822 x10^3/uL (140-400) H Neutrophils (%) (Auto) 89 % (31-73) H Lymphocytes (%) (Auto) 6 % (24-48) L Monocytes (%) (Auto) 5 % (0-9) Eosinophils (%) (Auto) 0 % (0-3) Basophils (%) (Auto) 0 % (0-3) Neutrophils # (Auto) 22.4 x10^3uL (1.8-7.7) H Lymphocytes # (Auto) 1.6 x10^3/uL (1.0-4.8) Monocytes # (Auto) 1.2 x10^3/uL (0.0-1.1) H Eosinophils # (Auto) 0.0 x10^3/uL (0.0-0.7) Basophils # (Auto) 0.0 x10^3/uL (0.0-0.2) Segmented Neutrophils % 58 % (35-66) Band Neutrophils % 23 % (0-9) H Lymphocytes % 15 % (24-48) L Monocytes % 4 % (0-10) Platelet Estimate Increased (ADEQUATE) Platelet Clumps, EDTA Present Sodium Level 133 mmol/L (136-145) L Potassium Level 6.0 mmol/L (3.5-5.1) H Chloride Level 99 mmol/L (98-107) Carbon Dioxide Level 14 mmol/L (21-32) L Anion Gap 20 (6-14) H Blood Urea Nitrogen 76 mg/dL (7-20) H Creatinine 2.4 mg/dL (0.6-1.0) H Estimated GFR (Cockcroft-Gault) 19.8 BUN/Creatinine Ratio 32 (6-20) H Glucose Level 217 mg/dL (70-99) H Lactic Acid Level 3.9 mmol/L (0.4-2.0) H Calcium Level 9.5 mg/dL (8.5-10.1) Total Bilirubin 0.3 mg/dL (0.2-1.0) Aspartate Amino Transferase (AST) 17 U/L (15-37) Alanine Aminotransferase (ALT) 19 U/L (14-59) Alkaline Phosphatase 187 U/L (46-116) H Troponin I Quantitative < 0.017 ng/mL (0-0.055) Total Protein 7.5 g/dL (6.4-8.2) Albumin 2.3 g/dL (3.4-5.0) L Albumin/Globulin Ratio 0.4 (1.0-1.7) L Blood pH 7.42 (7.35-7.45) Blood Gas PCO2 19 mmHg (35-45) *L Blood Gas PO2 54 mmHg (71-100) L Blood Gas HCO3 12 mmol/L (22-26) L Arterial Bld O2 Saturation (Calc) 89 % (92-99) L FiO2 44 % Vital Signs: Vital Signs Date Time Temp Pulse Resp B/P (MAP) Pulse Ox O2 Delivery O2 Flow Rate FiO2 02/08/21 09:29 94 Nasal Cannula 6.0 02/08/21 09:15 97.9 115 18 93/66 EKG: EKG: Sinus rhythm. Rate 121. Normal intervals. Left axis deviation. Low voltage. No evidence of acute myocardial infarction, but difficult to interpret in setting of baseline wander with tachypnea. [] Radiology/Procedures: Radiology/Procedures: [address] [id number] IMAGING REPORT Signed PATIENT: JOÃO RODRIGUEZ ACCOUNT: [id number] : 1945 LOCATION: ER AGE: 75 SEX: F EXAM STATUS: REG ER ORD. PHYSICIAN: KOFI SANTIAGO MD REASON: hypoxia, sob, hx copd PROCEDURE: CHEST AP ONLY XR CHEST 1V History: Reason: hypoxia, sob, hx copd / Spl. Instructions: / History: Comparison: July 24, 2020 Findings: Hyperinflation with emphysematous changes. Increased patchy bibasilar opacities. Small right pleural effusion. Lower thoracic compression fractures status post kyphoplasty, unchanged. No pneumothorax. Normal heart size. Impression: 1. Increased patchy bibasilar opacities, may represent atelectasis or developing consolidations. 2. Small right pleural effusion. 3. Hyperinflation with emphysematous changes. Electronically signed by: Srinivas Narayan DO (02/08/2021 10:12 AM) [id number] DICTATED AND SIGNED BY: SRINIVAS NARAYAN DO DATE: 02/08/21 1010 CC: KOFI SANTIAGO MD; ALE GAUTAM MD ~MTH0 0 [] Heart Score: C/O Chest Pain: N/A Risk Factors: Risk Factors: DM, Current or recent (<one month) smoker, HTN, HLP, family history of CAD, obesity. Risk Scores: Score 0 - 3: 2.5% MACE over next 6 weeks - Discharge Home Score 4 - 6: 20.3% MACE over next 6 weeks - Admit for Clinical Observation Score 7 - 10: 72.7% MACE over next 6 weeks - Early Invasive Strategies Course & Med Decision Making: Course & Med Decision Making Pertinent Labs and Imaging studies reviewed. (See chart for details) Patient is a 75-year-old female with history of COPD previously requiring oxygen who presents with shortness of breath and hypoxia. Reportedly in the 70s pr [facility]ospital. Arrived on 6 L/min nonrebreather. Tachycardic to the 120s and borderline BPs 69048 SBP. She was given IV fluids, vancomycin, cefepime for sepsis treatment. White count returned 20 5K, lactate 3.9. ABG showed a metabolic acidosis with good respiratory compensation. PaO2 in the 50s on 6 L/min nasal cannula. Chest x-ray shows patchy infiltrates, likely the source. Labs show an RICKIE and hyperkalemia to 6.0. For this reason she may need nephrology input, so I contacted [facility] for transfer for hospitalization. Accepted by Dr. Ken. Shayne Disclaimer: Shayne Disclaimer: This electronic medical record was generated, in whole or in part, using a voice recognition dictation system. Departure Departure: Impression: Primary Impression: RICKIE (acute kidney injury) Additional Impressions: Sepsis Pneumonia Disposition: 02 SHORT TERM HOSPITAL Condition: STABLE KOFI SANTIAGO MD Feb 08, 2021 11:35
[2021-02-08 12:54] LABS: BILIRUBIN,URINE NEG (NEG); CLARITY,URINE CLOUDY; COLOR,URINE STRAW; GLUCOSE,URINE NEG (NEG); NITRITE,URINE NEG (NEG); UROBILINOGEN,URINE 0.2 mg/dL (0.2 mg/dL)
[2021-02-08 12:56] LABS: BACTERIA,URINE MANY /HPF (0-FEW); RBC,URINE >40 /HPF (0-2); WBC,URINE >40 /HPF (0-4)
[2021-02-08] MEDS ORDERED: HYDROcodone/APAP 5/325MG 1 TAB TABLET PO ONE (15:30)
[2021-02-08 19:30] VITALS: BP 113/61
== END 2021-02-08 19:40 | disposition short-term general hospital (02) ==
LOC: ER 09:12
DX: N17.9 Acute kidney failure, unspecified (principal); R65.20 Severe sepsis without septic shock; J18.9 Pneumonia, unspecified organism; J44.9 Chronic obstructive pulmonary disease, unspecified; Z88.0 Allergy status to penicillin
CPT/HCPCS: 36415; 36600; 71045; 80053; 81001; 82803; 83605; 84484; 85007; 85025; 87040; 87086; 93005; 94640; 96365; 96366; 96367; 96375; 99285; J0610; J0692; J3370; J7040

== ENCOUNTER 2021-02-21 18:39 | Inpatient (IN) | payer MEDICARE ==
[~2021-02-21] VITALS: Ht 154.9 cm; Wt 31.2 kg
--- NOTE | 2021-02-21 18:48 | PHYS DOC ---
Past History Past Medical History: Anemia, Anxiety, Arthritis, Arrhythmia, Bronchitis, CAD, COPD, Heart Disease, Hypertension, Renal Disease, Renal Failure, UTI, Other Additional Past Medical Histor: NEUROPATHY, dehydration, osteoporosis, anxiety, anemia, kidney failure Past Surgical History: Appendectomy, Hysterectomy, Other Additional Past Surgical Histo: SPINAL TUMOR REMOVED, VERTEBROPLASTY Smoking: Non-smoker Alcohol Use: None Drug Use: None General Adult EDM: Chief Complaint: OTHER COMPLAINTS HPI: HPI: ".. I can't ...breath... I hurt..." ".. The Patient is a 75 year old female who presents with above hx and complaints . Patient is a transfer from [facility] where she has been a resident since 07/28/2020. Patient recently diagnosed with Covid 5 days ago. Patient has had a precipitous decline and overall mental status and vitals. Patient has significant medical history of protein malnutrition, COPD, anemia of chronic kidney disease, kidney failure, osteoporosis, compression fractures of T11 and 12, anxiety disorder. Patient has history of previous [place] admission in July 24, 2020 for profound dehydration, hypokalemia, generalized debilitation, and malnutrition. At that time she had been living with her son. Patient follows with Dr. Blackburn and Dr. Anum Reynolds in the [facility]. Patient presents to the emergency room in severe cardiopulmonary distress. Patient in obvious respiratory failure and hypotensive... On presentation ED had no information from [facility] and no information was called to the emergency department by the [facility] staff. Per paramedics patient reportedly had been vomiting stool prior to transport to ED. The patient on presentation appeared extremely dehydrated. Pt. reportedly a full code. Patient received boluses of LR and was placed on BiPAP. Eventually was able to obtain saturations in the 90s. Initial heart rates of 120-140s gradually declined into the 100 range. Review of Systems: Review of Systems: Review of systems was limited because of patient's severe respiratory and cardiovascular decompensation Patient complains of fever or chills and generalized pain Family History: Family History: Not currently available Current Medications: Current Meds: half-way meds unknown , Allergies: Allergies: Allergies Coded Allergies Type Severity Reaction Last Updated Verified Penicillins Allergy Intermediate 07/10/17 Yes Physical Exam: PE: Constitutional: in acute distress, morbid and very cachectic in appearance HENT: Normocephalic, atraumatic, bilateral external ears normal, oropharynx dry, black teeth, no oral exudates, nose normal. [] Eyes: PERRLA, EOMI, conjunctiva normal, no discharge. Eyes sunken Neck: Limited range of motion, no tenderness, supple, no stridor. [] Cardiovascular: Tachycardia heart rate, irregular rhythm, no murmur [] Lungs & Thorax: Bilateral breath sounds equal at apex , patient had scattered rhonchi and crackles and wheezing on throughout on auscultation [. Had] markedly decreased breath sounds on left and right bases, Abdomen: Bowel sounds decreased, soft, generalized tenderness, no masses, no pulsatile masses. Muscle wasting Skin: Very poor turgor, cyanotic and capillary refill excess of 5 seconds in fingers Back: Generalized tenderness, CVA tenderness. Kyphotic. Surgical scar Extremities: Generalized tenderness, distal cyanosis, arthritic changes, moves extremities weakly on request, no edema. [] Neurologic: Alert only to name and knew she was in a hospital, did move all extremities on request, marked decreased sensory function lower limbs, , Psychologic: Affect anxious, judgement impaired, EKG: EKG: My interpretation EKG shows a sinus tachycardia of extensive artifact. There is anterior lateral strain pattern. Abnormal EKG. Time of this EKG is 2000 hrs. [] Radiology/Procedures: Radiology/Procedures: [place] [address] IMAGING REPORT Signed PATIENT: JOÃO RODRIGUEZ ACCOUNT: [id number] : 1945 LOCATION: ER AGE: 75 SEX: F EXAM STATUS: REG ER ORD. PHYSICIAN: ZACHERY HOUSER MD REASON: vomiting stool, OMNI 240, 30ml & OMNI 300, 60ml PROCEDURE: CT ABD PELV W/ORAL&IV CONTRAST Study: CT abdomen/pelvis with intravenous contrast Indication: Vomiting. Comparison: 07/27/2020 Technique: Helical CT imaging performed of the abdomen and pelvis after the intravenous administration of 60 cc Omnipaque 300 contrast. 30 cc oral Omnipaque 240. Sagittal and coronal reformats were obtained. One or more of the following individualized dose reduction techniques were utilized for this examination: 1. Automated exposure control 2. Adjustment of the mA and/or kV according to patient size 3. Use of iterative reconstruction technique. Findings: The study is limited on account of motion. What is seen of the left lower lobe is collapsed. Less pronounced atelectasis seen within the right lower lobe more so than right middle lobe. Infiltrates seen within the base of the right middle lobe such as on image 10 series 2. There is an ill-defined subsolid density within the right middle lobe measuring up to 1.6 cm on image 6 series 2. Possible partially imaged nodule or infiltrate within the right middle lobe on image 1 series 2 measuring 0.6 cm. Faint infiltrates within the upper lingula. No newly seen abnormality of the liver. The gallbladder is not visualized. Leah lar configuration of the partially assessed biliary tree and pancreas. Normal size of the spleen. No adrenal gland mass. Redemonstration of severe bilateral hydroureteronephrosis. Right more so than left renal cortical thinning with maintained enhancement. As before there is asymmetrically prominent uroepithelial thickening on the right. Mild bladder wall thickening. Absent uterus. Moderate rectal distention with well-formed stool. Gaseous more so than stool distention of the colon proximal to the splenic flexure. Where the colon transitions from distended mostly collapsed at the splenic flexure on approximately image 22 series 3, no obstructing process is seen. The appendix is not well visualized but there are no inflammatory changes at its expected locat ion. Positive oral contrast extends through small bowel down to the pelvis. A few segments of small bowel are mildly dilated. Positive oral contrast within stomach. The more distal stomach is not well evaluated. No gastric wall emphysema. Multifocal calcified and noncalcified atheromatous plaque. There is stenoses associated with the iliac and visualized femoral vessels but not well characterized. No definitive lymphadenopathy. Trace free fluid within the pelvis decreased from the prior. No pneumoperitoneum. Cachectic body habitus. Osteopenia. Multiple chronic compression deformities. Vertebral body height loss is not significantly changed. Impression: 1. The study is limited due to patient motion. Interpretation is also made difficult due to the patient's cachectic body habitus. 2. Distention of the proximal two thirds of the colon to the splenic flexure mainly on account of gas. Constipation with moderate rectal distention with well-formed stool. A few segments of small bowel are mildly dilated but there are no findings that would suggest a high-grade small bowel obstruction. No pneumatosis or perforation. An ileus is possible. The findings could also be in part related to the extent of stool within the rectum. 3. What is seen of the left lower lobe is collapsed. Atelectasis as well as infiltrates at the lung bases best seen within the right middle lobe. Aspiration should be considered. Follow-up is recommended to confirm resolution. 4. Persistence of severe bilateral hydroureteronephrosis without signal change from 07/27/2020. 5. Additional chronic observations detailed in the body of the report. Electronically signed by: RACHEL MORGAN MD (02/22/2021 12:38 AM) [facility] DICTATED AND SIGNED BY: RACHEL MORGAN MD DATE: 02/22/2121 CC: ZACHERY HOUSER MD; ALE GAUTAM MD ~[facility] [address] [place] [address] IMAGING REPORT Signed PATIENT: JÃOO RODRIGUEZ ACCOUNT: [id number] : 1945 LOCATION: ER AGE: 75 SEX: F EXAM STATUS: REG ER ORD. PHYSICIAN: ZACHERY HOUSER MD REASON: vomiting stool, OMNI 240, 30ml & OMNI 300, 60ml PROCEDURE: CT ABD PELV W/ORAL&IV CONTRAST Study: CT abdomen/pelvis with intravenous contrast Indication: Vomiting. Comparison: 07/27/2020 Technique: Helical CT imaging performed of the abdomen and pelvis after the intravenous administration of 60 cc Omnipaque 300 contrast. 30 cc oral Omnipaque 240. Sagittal and coronal reformats were obtained. One or more of the following individualized dose reduction techniques were utilized for this examination: 1. Automated exposure control 2. Adjustment of the mA and/or kV according to patient size 3. Use of iterative reconstruction technique. Findings: The study is limited on account of motion. What is seen of the left lower lobe is collapsed. Less pronounced atelectasis seen within the right lower lobe more so than right middle lobe. Infiltrates seen within the base of the right middle lobe such as on image 10 series 2. There is an ill-defined subsolid density within the right middle lobe measuring up to 1.6 cm on image 6 series 2. Possible partially imaged nodule or infiltrate within the right middle lobe on image 1 series 2 measuring 0.6 cm. Faint infiltrates within the upper lingula. No newly seen abnormality of the liver. The gallbladder is not visualized. Sim ilar configuration of the partially assessed biliary tree and pancreas. Normal size of the spleen. No adrenal gland mass. Redemonstration of severe bilateral hydroureteronephrosis. Right more so than left renal cortical thinning with maintained enhancement. As before there is asymmetrically prominent uroepithelial thickening on the right. Mild bladder wall thickening. Absent uterus. Moderate rectal distention with well-formed stool. Gaseous more so than stool distention of the colon proximal to the splenic flexure. Where the colon transitions from distended mostly collapsed at the splenic flexure on approximately image 22 series 3, no obstructing process is seen. The appendix is not well visualized but there are no inflammatory changes at its expected loca tion. Positive oral contrast extends through small bowel down to the pelvis. A few segments of small bowel are mildly dilated. Positive oral contrast within stomach. The more distal stomach is not well evaluated. No gastric wall emphysema. Multifocal calcified and noncalcified atheromatous plaque. There is stenoses associated with the iliac and visualized femoral vessels but not well characterized. No definitive lymphadenopathy. Trace free fluid within the pelvis decreased from the prior. No pneumoperitoneum. Cachectic body habitus. Osteopenia. Multiple chronic compression deformities. Vertebral body height loss is not significantly changed. Impression: 1. The study is limited due to patient motion. Interpretation is also made difficult due to the patient's cachectic body habitus. 2. Distention of the proximal two thirds of the colon to the splenic flexure mainly on account of gas. Constipation with moderate rectal distention with well-formed stool. A few segments of small bowel are mildly dilated but there are no findings that would suggest a high-grade small bowel obstruction. No pneumatosis or perforation. An ileus is possible. The findings could also be in part related to the extent of stool within the rectum. 3. What is seen of the left lower lobe is collapsed. Atelectasis as well as infiltrates at the lung bases best seen within the right middle lobe. Aspiration should be considered. Follow-up is recommended to confirm resolution. 4. Persistence of severe bilateral hydroureteronephrosis without signal change from 07/27/2020. 5. Additional chronic observations detailed in the body of the report. Electronically signed by: RACHEL MORGAN MD (02/22/2021 12:38 AM) [facility] DICTATED AND SIGNED BY: RACHEL MORGAN MD DATE: 02/22/2121 CC: ZACHERY HOUSER MD; ALE GAUTAM MD ~MTH0 0 Heart Score: C/O Chest Pain: Yes HEART Score for Chest Pain: HEART Score for Chest Pain Response (Comments) Value History Highly Suspicious [address] Depression 2 Age > 65 2 Risk Factors >3 Risk Factors or Hx CAD 2 Troponin < Normal Limit 0 Total 8 Risk Factors: Risk Factors: DM, Current or recent (<one month) smoker, HTN, HLP, family history of CAD, obesity. Risk Scores: Score 0 - 3: 2.5% MACE over next 6 weeks - Discharge Home Score 4 - 6: 20.3% MACE over next 6 weeks - Admit for Clinical Observation Score 7 - 10: 72.7% MACE over next 6 weeks - Early Invasive Strategies Course & Med Decision Making: Course & Med Decision Making Pertinent Labs and Imaging studies reviewed. (See chart for details) Patient received fluid bolus, BiPAP, antibiotic coverage with vancomycin and Flagyl because of history of recent exacerbation of abdomen pain, Discussed presentation, testing and treatment plan with -Admit to ICU. Continue Hydration, Antibiotics, enemas to clear obstipation/constipation. Attempt to locate son. -currently no answer on , . Critical Care- 120 min Impression: 1. Recent diagnosis of Covid pneumonia-5 days ago 2. Cardiopulmonary failure 3. Severe dehydration 4. Anemia Hgb- 9.1 5. Thrombocytosis 406 6. Renal Failure BUN 60/Creat 1.6 ( severe bilateral hydroureteronephrosis) 7. DM=glu 202 8. Sepsis/ Sirs= Lactic Acit 5.9 9. UTI 10. Hx.of COPD 11. Hx. of Severe protein - calorie malnutrition 12. Constipation Inspite of improved oxygenation and MAP-by time of transfer to [facility] , her multiple medical issues limit her ability to survive this hospitalization. [] Dragon Disclaimer: Dragon Disclaimer: This electronic medical record was generated, in whole or in part, using a voice recognition dictation system. Departure Departure: Referrals: ALE GAUTAM MD (PCP) Shayne Disclaimer This chart was dictated in whole or in part using Voice Recognition software in a busy, high-work load, and often noisy Emergency Department environment. It may contain unintended and wholly unrecognized errors or omissions. ZACHERY HOUSER MD Feb 21, 2021 18:48
[2021-02-21] MEDS ORDERED: ONDANSETRON PF 4 MG/2 ML VIAL. IVP ONE (19:00)
[2021-02-21] MEDS ORDERED: FAMOTIDINE 20 MG/2 ML VIAL IVP ONE (19:00)
[2021-02-21] MEDS ORDERED: IOHEXOL 300 MG/ML 75 ML VIAL. IV ONE (19:15)
[2021-02-21] MEDS ORDERED: IOHEXOL 240 MG/ML 50ML VIAL. PO ONE (19:15)
[2021-02-21 19:38] LABS: BASO % 0 % (0-3); EOS % 0 % (0-3); HEMATOCRIT 30.2 % (36.0-47.0); HEMOGLOBIN 9.1 g/dL (12.0-15.5); LYMPH # 0.9 x10^3/uL (1.0-4.8); LYMPH % 9 % (24-48); MEAN CORPUSCULAR HEMOGLOBIN 25 pg (25-35); MEAN CORPUSCULAR HGB CONC 30 g/dL (31-37); MEAN CORPUSCULAR VOLUME 82 fL (79-100); MONO # 0.5 x10^3/uL (0.0-1.1); MONO % 5 % (0-9); NEUT # 8.3 x10^3uL (1.8-7.7); NEUT % 86 % (31-73); PLATELET COUNT 406 x10^3/uL (140-400); RED BLOOD COUNT 3.71 x10^6/uL (3.50-5.40); RED CELL DISTRIBUTION WIDTH 22.9 % (11.5-14.5); WHITE BLOOD COUNT 9.7 x10^3/uL (4.0-11.0)
[2021-02-21 19:39] LABS: CALCIUM 9.4 mg/dL (8.5-10.1); CREATININE 1.6 mg/dL (0.6-1.0); GFR 31.6; POTASSIUM 4.1 mmol/L (3.5-5.1)
[2021-02-21 19:41] LABS: BARBITURATES NEG (NEG); BENZODIAZEPINES NEG (NEG); CANNABINOIDS NEG (NEG); COCAINE NEG (NEG); METHADONE NEG (NEG); OPIATES POS (NEG); PHENCYCLIDINE NEG (NEG)
[2021-02-21 19:44] LABS: BILIRUBIN,URINE NEG (NEG); CLARITY,URINE TURBID; COLOR,URINE YELLOW; GLUCOSE,URINE NEG (NEG); NITRITE,URINE NEG (NEG); UROBILINOGEN,URINE 0.2 mg/dL (0.2 mg/dL)
[2021-02-21 19:45] LABS: ALBUMIN 2.2 g/dL (3.4-5.0); DIRECT BILIRUBIN 0.2 mg/dL (0.0-0.2); TOTAL BILIRUBIN 0.4 mg/dL (0.2-1.0); TOTAL PROTEIN 7.2 g/dL (6.4-8.2)
[2021-02-21 19:45] LABS: BACTERIA,URINE MOD /HPF (0-FEW); WBC,URINE TNTC /HPF (0-4)
[2021-02-21 19:49] LABS: AMPHETAMINE/METHAMPHETAMINE NEG (NEG)
--- NOTE | 2021-02-21 19:57 | RAD ---
Abdominal series dated 02/21/2021. Comparison made to 07/27/2020. CLINICAL INDICATION: Vomiting. FINDINGS: Single upright view the chest shows stable heart and mediastinal contours. There is some patchy incre ased density at both lung bases, unchanged. Lungs are hyperinflated. No pleural effusion. No pneumoth orax. Upright views the abdomen show dilated gas-filled loops of colon with suspected small bowel dilation. No definite pneumoperitoneum. Stool at the rectal vault. Multilevel lumbar compression fractures wit h evidence of prior vertebral plasty at T12. IMPRESSION: 1. Dilated loops of colon and small bowel, possibly related to ileus. Distal obstruction or fecal imp action not excluded. No apparent free air. 2. Patchy bibasilar airspace disease, similar to prior study, likely atelectasis. 3. Findings consistent with COPD. Electronically signed by: Nawaf Porras MD (02/21/2021 7:55 PM) [facility]
[2021-02-21 20:01] LABS: ANISOCYTOSIS MOD; HYPOCHROMIA SLIGHT; PLT ESTIMATE ADEQUATE (ADEQUATE)
[2021-02-21] MEDS: IV RINGERS SOLUTION,LACTATED 1,000 ML IV SCH (20:55)
--- NOTE | 2021-02-21 21:23 | RAD ---
Single view chest dated 02/21/2021 9:19 PM: COMPARISON: 02/08/2021 Clinical Indication: NG placement. Findings: Single upright portable exam of the chest was performed. Heart and mediastinal contours are stable. I nterval placement of NG tube with tip projected to the level of the GE junction. Patchy perihilar and bibasilar airspace disease, unchanged. The lungs are somewhat hyperinflated. Blunting of the costoph renic sulci. IMPRESSION: 1. NG tube tip projected to the level of the GE junction. Recommend repositioning. 2. Bilateral airspace disease with possible small pleural effusions, unchanged. Electronically signed by: Nawaf Porras MD (02/21/2021 9:20 PM) JOE
[2021-02-21] MEDS ORDERED: VANCOMYCIN 1 GM in IV NORMAL SALINE 250ML 250 ML IV ONE (21:45)
[2021-02-21] MEDS ORDERED: VANCOMYCIN 750 MG in IV NORMAL SALINE 250ML 250 ML IV ONE (22:00)
[2021-02-21] MEDS ORDERED: IV RINGERS SOLUTION,LACTATED 1,000 ML IV ONE (22:30)
--- NOTE | 2021-02-21 22:38 | EKG ---
[address] [address] Test Date: 2021-02-21 Test Time: 20:00:07 Pat Name: JOÃO RODRIGUEZ Department: Room: Gender: F Custodial Aide: ADALBERTO : 1945 Requested By: ZACHERY HOUSER Order Number: [id number] Reading MD: Measurements Intervals [place] Rate: 120 P: 70 IA: 118 QRS: 36 QRSD: 78 T: 107 QT: 306 QTc: 437 Interpretive Statements SINUS TACHYCARDIA LOW LIMB LEAD VOLTAGE T ABNORMALITY IN ANTEROLATERAL LEADS ABNORMAL ECG RI6.02 Compared to ECG 02/21/2021 19:58:05 Atrial abnormality no longer present Possible ischemia no longer present Possible ischemia no longer present T-wave abnormality still present
[2021-02-22] VITALS (11 sets, daily range): BP systolic 82–106; BP diastolic 54–74
--- NOTE | 2021-02-22 00:41 | RAD ---
Study: CT abdomen/pelvis with intravenous contrast Indication: Vomiting. Comparison: 07/27/2020 Technique: Helical CT imaging performed of the abdomen and pelvis after the intravenous administratio n of 60 cc Omnipaque 300 contrast. 30 cc oral Omnipaque 240. Sagittal and coronal reformats were obta ined. One or more of the following individualized dose reduction techniques were utilized for this examinat ion: 1. Automated exposure control 2. Adjustment of the mA and/or kV according to patient size 3. Use of iterative reconstruction technique. Findings: The study is limited on account of motion. What is seen of the left lower lobe is collapsed. Less pronounced atelectasis seen within the right l ower lobe more so than right middle lobe. Infiltrates seen within the base of the right middle lobe s uch as on image 10 series 2. There is an ill-defined subsolid density within the right middle lobe me asuring up to 1.6 cm on image 6 series 2. Possible partially imaged nodule or infiltrate within the r ight middle lobe on image 1 series 2 measuring 0.6 cm. Faint infiltrates within the upper lingula. No newly seen abnormality of the liver. The gallbladder is not visualized. Similar configuration of t he partially assessed biliary tree and pancreas. Normal size of the spleen. No adrenal gland mass. Redemonstration of severe bilateral hydroureteronephrosis. Right more so than left renal cortical thi nning with maintained enhancement. As before there is asymmetrically prominent uroepithelial thickeni ng on the right. Mild bladder wall thickening. Absent uterus. Moderate rectal distention with well-formed stool. Gaseous more so than stool distention of the colon proximal to the splenic flexure. Where the colon transitions from distended mostly collapsed at the splenic flexure on approximately image 22 series 3, no obstructing process is seen. The appendix is n ot well visualized but there are no inflammatory changes at its expected location. Positive oral cont rast extends through small bowel down to the pelvis. A few segments of small bowel are mildly dilated . Positive oral contrast within stomach. The more distal stomach is not well evaluated. No gastric wa ll emphysema. Multifocal calcified and noncalcified atheromatous plaque. There is stenoses associated with the eric c and visualized femoral vessels but not well characterized. No definitive lymphadenopathy. Trace yuri e fluid within the pelvis decreased from the prior. No pneumoperitoneum. Cachectic body habitus. Osteopenia. Multiple chronic compression deformities. Vertebral body height l oss is not significantly changed. Impression: 1. The study is limited due to patient motion. Interpretation is also made difficult due to the eliezer ent's cachectic body habitus. 2. Distention of the proximal two thirds of the colon to the splenic flexure mainly on account of ga s. Constipation with moderate rectal distention with well-formed stool. A few segments of small bowel are mildly dilated but there are no findings that would suggest a high-grade small bowel obstructio n. No pneumatosis or perforation. An ileus is possible. The findings could also be in part related to the extent of stool within the rectum. 3. What is seen of the left lower lobe is collapsed. Atelectasis as well as infiltrates at the lung bases best seen within the right middle lobe. Aspiration should be considered. Follow-up is recommend ed to confirm resolution. 4. Persistence of severe bilateral hydroureteronephrosis without signal change from 07/27/2020. 5. Additional chronic observations detailed in the body of the report. Electronically signed by: RACHEL MORGAN MD (02/22/2021 12:38 AM) [facility]
[2021-02-22] MEDS: IV RINGERS SOLUTION,LACTATED 1,000 ML IV SCH ×4 (02:28→15:45)
[2021-02-22] MEDS ORDERED: ACETAMINOPHEN 325 MG TABLET PO PRN (03:15)
[2021-02-22] MEDS ORDERED: ONDANSETRON PF 4 MG/2 ML VIAL. IVP PRN (03:15)
[2021-02-22] MEDS ORDERED: IPRATRPIUM/ALBUTEROL 0.5/2.5MG 3 ML NEBU. NEB SCH (08:00)
[2021-02-22] MEDS: SODIUM PHOSPHATES 19/7GM 133 ML ENEMA. PR SCH ×2 (08:06→20:35)
[2021-02-22] MEDS: ALBUTEROL SULFATE 8GM INHALER. INH SCH ×4 (09:52→20:35)
[2021-02-22] MEDS ORDERED: MORPHINE SULFATE 2 MG/ML DISP.SYRIN. IV PRN (10:30)
--- NOTE | 2021-02-22 10:55 | HP ---
ADMIT DATE: 02/22/2021 ATTENDING PHYSICIAN: Dr. Molina. CHIEF COMPLAINT: Weakness. HISTORY OF PRESENT ILLNESS: The patient is a 75-year-old female from [facility]. She has been a resident there for the last several months since July of this year. She had COVID 5 days ago. She has significant respiratory distress requiring supplemental oxygen. She was also profoundly dehydrated. She has multiple compression fractures. She is bedridden. She is down to 68 pounds by our scale. She has profound cachexia. She wants to . [facility] is [facility] the [facility] of getting hosp[facility] care. She has also been vomiting. It is unclear whether she has a bowel obstruction. When I saw her, she is literally just bone and skin. There is absolutely no fat stores whatsoever and there is significant muscle wasting from demand metabolism. I believe she is actively dying or in the process of ascertaining her code status as well as getting hospice to see her. PAST MEDICAL HISTORY: Significant for degenerative arthritis, anemia, COPD, coronary artery disease, hypertension, chronic kidney failure, frequent UTIs, peripheral neuropathy. PAST SURGICAL HISTORY: She has had previous hysterectomy, vertebroplasty and supposedly a spinal tumor removed; exact details are sketchy. SOCIAL HISTORY: She used to be a smoker. She has not smoked in the jail. No alcohol use. ALLERGIES: PENICILLIN. CURRENT MEDICATIONS: Current medicines are reviewed. She was scheduled at the jail to take Tylenol, ferrous sulfate, hydrocodone, Protonix, MiraLax, and temazepam at bedtime. FAMILY HISTORY: Noncontributory. REVIEW OF SYSTEMS: Unobtainable due to patient's mentation. OBJECTIVE FINDINGS: On this admission: INITIAL VITAL SIGNS: Showed a blood pressure of 90/57, pulse is 84 and regular. She was afebrile, oxygen saturation now is improved to 99% down to 2 liters by nasal cannula. HEENT: Head is without trauma. Pupils are rabbit orbits and are quite sunken. Mucous membranes dry with significant neglect of her remaining teeth with very poor dentition, no upper teeth. There is no stridor. NECK: Supple. LUNGS: Shallow respirations. CARDIOVASCULAR: Showed regular heart tones. No obvious gallops. Peripheral pulses are palpable and weak. ABDOMEN: Soft, scaphoid. EXTREMITIES: Without edema. NEUROLOGIC: She is bedridden. She has contractures. Overall appearance, the patient is profoundly cachectic with no fat stores and she is actively dying. PERTINENT LABORATORY STUDIES: Admission hemoglobin 9.1 g/dL, white count 9700. Creatinine was 1.6 mg%. Lactic acid was 5.9, repeated was down to 2.4; potassium 4.1 mEq. Cardiac enzymes negative. Nonfasting blood sugar 202. Abdomen and pelvis CT showed distention of the proximal two-thirds of the colon. There is splenic flexure, mainly on account of gas. There is constipation with moderate rectal distention with well-formed stool. Atelectasis in the lung bases. Chest x-ray showed interval placement of NG tube, patchy perihilar airspace disease identified are unchanged. Lungs remain hyperinflated. ASSESSMENT: 1. A 75-year-old female with profound dehydration. 2. Hypoxemia requiring supplemental oxygen. 3. Recent COVID exposure with probable pneumonia at the bases. 4. Severe protein-calorie malnutrition with cachexia. 5. Underlying chronic obstructive pulmonary disease. 6. Major depression with anxiety. 7. Profound debilitation. 8. I believe this patient is actively dying. PLAN: 1. Admit to the inpatient unit. 2. We shall wean down supplemental oxygen. 3. Based on her, she wishes to be a DNR. I have instituted her advanced directive orders. 4. Formal hospice consultation with end of life care. 5. Gentle IV hydration. 6. Pain and nausea control. Whatever diet she can tolerate will be ordered. VICKY DR: Cate TID: [id number] CC: ALE GAUTAM MD
[2021-02-22] MEDS ORDERED: FAMO40TA4 PO (15:19)
[2021-02-22] MEDS ORDERED: LACT1CAP6 PO (15:19)
[2021-02-22] MEDS ORDERED: CALC500T31 PO (15:19)
[2021-02-22] MEDS ORDERED: CHOL400T36 PO (15:19)
[2021-02-22] MEDS ORDERED: MIRT15TA90 PO (15:19)
[2021-02-22] MEDS ORDERED: CYAN100031 PO (15:19)
[2021-02-22] MEDS ORDERED: GUAI600T6 PO (15:19)
[2021-02-22] MEDS ORDERED: LOPE-101 PO (15:19)
[2021-02-22] MEDS ORDERED: FLUT1DIS IH (15:19)
[2021-02-22] MEDS ORDERED: ALBU2.5V8 IH (15:19)
[2021-02-22] MEDS ORDERED: OXYB10TA7 PO (15:19)
[2021-02-23 06:50] VITALS: BP 97/55
[2021-02-23 06:57] LABS: BASO % 0 % (0-3); EOS % 0 % (0-3); HEMATOCRIT 24.7 % (36.0-47.0); HEMOGLOBIN 7.5 g/dL (12.0-15.5); LYMPH # 0.9 x10^3/uL (1.0-4.8); LYMPH % 9 % (24-48); MEAN CORPUSCULAR HEMOGLOBIN 24 pg (25-35); MEAN CORPUSCULAR HGB CONC 30 g/dL (31-37); MEAN CORPUSCULAR VOLUME 80 fL (79-100); MONO # 0.2 x10^3/uL (0.0-1.1); MONO % 2 % (0-9); NEUT # 9.5 x10^3uL (1.8-7.7); NEUT % 89 % (31-73); PLATELET COUNT 222 x10^3/uL (140-400); RED BLOOD COUNT 3.07 x10^6/uL (3.50-5.40); RED CELL DISTRIBUTION WIDTH 22.9 % (11.5-14.5); WHITE BLOOD COUNT 10.6 x10^3/uL (4.0-11.0)
[2021-02-23 07:06] LABS: CALCIUM 8.3 mg/dL (8.5-10.1); GFR 54.3
[2021-02-23 07:11] LABS: POTASSIUM 2.8 mmol/L (3.5-5.1)
[2021-02-23] MEDS: IV RINGERS SOLUTION,LACTATED 1,000 ML IV SCH (07:53)
[2021-02-23] MEDS: ALBUTEROL SULFATE 8GM INHALER. INH SCH (08:47)
[2021-02-23] MEDS: SODIUM PHOSPHATES 19/7GM 133 ML ENEMA. PR SCH (08:47)
[2021-02-23 11:36] VITALS: BP 80/55
--- NOTE | 2021-02-23 12:51 | PN ---
DATE: 02/23/2021 ATTENDING PHYSICIAN: Dr. Molina. SUBJECTIVE: Fairly alert. She is comfortable. She refused any oral drugs or IV medicine. OBJECTIVE FINDINGS: VITAL SIGNS: Blood pressure this morning is 97/55, pulse is 80 and regular, oxygen saturation 90% on room air. She is afebrile. HEENT: Head is without trauma. Pupils are reactive. She has some remaining teeth in the lower jaw in very poor dentition. Her oropharynx is clear. There is no stridor. NECK: Supple. LUNGS: Clear with shallow respirations. CARDIOVASCULAR: Showed regular heart tones. No gallop. ABDOMEN: Soft, scaphoid, nontender. EXTREMITIES: Without edema. There is significant muscle wasting with cachexia. There are no fat stores and most of her large muscles. The biceps, triceps, and quadriceps has significant atrophy. LABORATORY DATA: This morning, the hemoglobin is down to 7.5 g/dL due to rehydration. Potassium is down to 2.8 mEq. Creatinine is 1.0. ASSESSMENT: 1. A 75-year-old female who was profoundly dehydrated. 2. Hypoxemia, requiring supplemental oxygen. 3. Recent COVID exposure. 4. Severe protein-calorie malnutrition with significant cachexia. 5. Underlying chronic obstructive pulmonary disease. 6. Major depression with anxiety. 7. Profound debilitation. 8. Hypokalemia. The patient refuses supplementation. 9. I believe this patient is actively dying. PLAN: 1. We asked inpatient hospice, they say she does not qualify. 2. Based on her wishes, she has been made a DNR. 3. [facility] to [facility] for [facility] with [facility] care at that time. Again, she refused any type of therapy, IV or oral. EUN KIKR: Cate TID: [id number]
--- NOTE | 2021-02-23 15:54 | DS ---
DATE OF DISCHARGE: 02/23/2021 ATTENDING PHYSICIAN: Dr. Molina. FINAL DISCHARGE DIAGNOSES: 1. Profound dehydration. 2. Hypoxemia. 3. Recent COVID exposure. 4. Severe protein calorie malnutrition with cachexia. 5. Underlying chronic obstructive pulmonary disease. 6. Major depression with anxiety. 7. Profound debilitation. 8. The patient is actively dying. 9. Hypokalemia. The patient refuses supplement. HISTORY AND PHYSICAL: The patient is a 75-year-old female at end-stage of her life. She is wasted away down to 67 pounds. She has no fat stores and has significant atrophy of all her major muscle groups. She is wanting to . She did not want any further treatment and evaluation. She is fairly alert and able to communicate it. She was admitted with profound dehydration through the ED with significant lactic acidemia due to low blood pressure and circulation. PHYSICAL EXAMINATION: Please see my dictated note. PERTINENT LABORATORY AND X-RAY STUDIES: Admission hemoglobin was 7.5 g/dL, white count 10,000. Chemistry panel: Potassium was 2.8 mEq, sodium 149 mEq, creatinine 1.0, BUN 36. Nonfasting blood sugar 64. Imaging study showed large amount of stool and some constipation in the sigmoid colon. Chest x-ray showed vague chronic COPD changes. COURSE IN HOSPITAL: The patient was admitted to the ICU. We ascertained that she wanted to be a DNR. She did not want any ____. We tried to contact the son, he is not available. Nevertheless, he is not the power of track man. In any event, we had a long discussion with the patient. She wishes to comfortably. We asked hospice care for inpatient. They [facility] with [facility]. Therefore, on the third hospital day, she was transported back to the [facility] via nonemergent ambulance. We will consult [facility] for end of life care. Her scheduled meds has been discontinued because she did not want to take them anymore. They will have morphine and oxygen available through hospice. Her prognosis is terminal. The patient was then discharged from our hospital to [facility]. HAROLDO/STLELA/ADAIR/DENISE DR: HAROLDO/theodora TID: [id number] CC: ALE GAUTAM MD
== END 2021-02-23 12:45 | disposition hospice, inpatient (51) | DRG 640 ==
LOC: ER 18:39 → ICU 02-22 03:44 → 1 SOUTH 02-23 06:23
PROVIDERS: ADMIT Hospitalist; ATTEND Hospitalist
PROC: 5A09357 Assistance with Respiratory Ventilation, Less than 24 Consecutive Hours, Continuous Positive Airway Pressure (ICD-10-PCS; principal; 2021-02-21)
PROC: 5A0935A Assistance with Respiratory Ventilation, Less than 24 Consecutive Hours, High Flow/Velocity Cannula (ICD-10-PCS; 2021-02-22)
DX: E86.0 Dehydration (principal); N17.0 Acute kidney failure with tubular necrosis; E43 Unspecified severe protein-calorie malnutrition; R64 Cachexia; Z68.1 Body mass index [BMI] 19.9 or less, adult; N13.6 Pyonephrosis; E87.2 Acidosis; M19.90 Unspecified osteoarthritis, unspecified site; J44.9 Chronic obstructive pulmonary disease, unspecified; Z51.5 Encounter for palliative care; I25.10 Atherosclerotic heart disease of native coronary artery without angina pectoris; I12.9 Hypertensive chronic kidney disease with stage 1 through stage 4 chronic kidney disease, or unspecified chronic kidney disease; E11.22 Type 2 diabetes mellitus with diabetic chronic kidney disease; E11.42 Type 2 diabetes mellitus with diabetic polyneuropathy; K59.00 Constipation, unspecified; M81.0 Age-related osteoporosis without current pathological fracture; N18.9 Chronic kidney disease, unspecified; E87.6 Hypokalemia; F41.8 Other specified anxiety disorders; Z66 Do not resuscitate; R09.02 Hypoxemia; I95.89 Other hypotension; Z90.710 Acquired absence of both cervix and uterus; Z90.49 Acquired absence of other specified parts of digestive tract; Z87.891 Personal history of nicotine dependence; Z87.440 Personal history of urinary (tract) infections; Z74.01 Bed confinement status; Z88.0 Allergy status to penicillin; Z86.16 Personal history of COVID-19
CPT/HCPCS: 36415; 71045; 74022; 74177; 80048; 80076; 80307; 81001; 82150; 82550; 83605; 83690; 84484; 85025; 85379; 85610; 85730; 87040; 87086; 93005; 96361; 96374; 96375; 99292; J0696; J2270; J2405; J3490; J7120; Q9966; Q9967; 99291-25